=== PATIENT | female | born 1995 | race Caucasian/White ===

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

== ENCOUNTER 2017-04-13 17:29 | Emergency (ER) | payer MEDICAID ==
[~2017-04-13] VITALS: Ht 139.7 cm; Wt 68.9 kg
[~2017-04-13 17:29] MED LIST changes: +FLONASE 50 MCG16 GM
--- NOTE | 2017-04-13 17:49 | Urgent Treatment Center Report ---
History of Present Issue Date/Time Seen by Provider 04/13/171747 Visit Reason Pt arrived:Walked Presenting Problem:PT C/O SORE THROAT AND EAR PAIN Location if Accident: Onset of symptoms date/time:/ or onset unknown for:MEDICAL HX UNKNOWN Have you (or family members/close friends) recently traveled outside the [place]? N If Yes, where/when: Have you had exposure to infectious disease within the past month? TB? Other? Specify: Patient state that she has not been feeling well states that she has been having pain in both ears and sore throat states that she also has been having some sinus pain and pressure states that she feels a little better when she blows her nose but when she does she feels her ears pop ALLERGIES Coded Allergies: No Known Allergies (11/24/16) Home Medications Active Scripts Fluticasone Propionate (Flonase 50 Mcg Nasal [place]) 2 SPRAY NA DAILY #1 BOT Prov: 03/08/17 History Medical History General CAD? No Angina: No [place]: No Hypertension? No Hyperlipidemia? No CHF? No DVT? No PE? No COPD? No Asthma? No Anemia? No GERD? No Gastric ulcers? No GI Bleed? No Hernia? No Thyroid Problems? No Hypothyroidism? No CVA? No Seizures? Yes Diabetes? No Insulin Dependent: No Insulin Pump: No Home FSBS? No Renal Insuffiency? No UTI? No Stones? No BPH? No GB Disease: No Nephritic Syndrome? No Asplenia? No Hepatitis? No Sickle Cell Disease? No Arthritis? No Migraines? No Cataracts? No Glaucoma? No MRSA? No HIV? No TB? No Anxiety? No Depression? No Cancer? No More? No Immunization HX DT/Tetanus 1-4 YRS Flu 2014-FSN Pneumonia Refuses Surgical Hx Previous Surgery?Y CLUB FEET- BILATERAL Social History Smoking Hx Smoker: Never Smoker Tobacco: No Packs/day N/A Alcohol Alcohol: No Review of Systems All Other Systems Reviewed and Negative Constitutional denies chills, denies fever ENT ear pain, nose discharge, nose congestion, throat pain. Respiratory cough, denies shortness of breath, denies wheezing Cardiovascular denies chest pain, denies palpitations Physical Exam Vital Signs Vital Signs Date Time Temp Pulse Resp B/P Pulse O2 O2 Flow FiO2 Ox Delivery Rate 04/13 1747 98.2 103 18 138/82 96 General Appearance normal appearance, WD/WN, no apparent distress Ear, Nose, Throat Tenderness noted over maxillary sinuses and greenish yellow drainage noted, throat mildly red, irritated, bilateral ears no redness, TM dull Respiratory Status Yes: trachea midline, chest symmetrical, non tender chest. No: respiratory distress. Cardiovascular normal exam, regular rate/rhythm, no peripheral edema, no gallop Neurologic alert, rehab therapy manager II-XII nml as tested, normal exam, no motor/sensory deficits, oriented x 3 Medical Decision Making LABS/Meds/Orders Pt receiving controlled substance in ED? No Departure Departure Time of Disposition 1825 Disposition DC Home or Self Care(routine) Clinical Impression Primary Impression: Sinusitis Qualifiers: Sinusitis location: maxillary Chronicity: acute Recurrence: not specified as recurrent Qualified Code: J01.00 - Acute maxillary sinusitis, unspecified Condition STABLE Referrals Abhi LUKE,Dane (Family): 2 Days-Call Office if no improvement in symptoms Patient Instructions DI for Sinusitis, Sinus Headache, Sinusitis (Alternative Therapy) Additional Instructions Start antibiotic. Sinus infections do not get better over night. It may take 2-3 days to notice much improvement so be sure to use conservative measures as discussed for symptoms Flonase 2 spray in each nostril daily to help with nasal congestion, sinus an ear pressure/inflammation Lots of Fluids Sleep elevated Humidifer/vaporizer Discharge Counseling Counseled pt/family regarding diagnosis, medications/RX, home care, follow up needs Prescriptions Current Visit Scripts Amoxicillin/Potassium Clav (Augmentin 875-125 Tablet) 1 EACH PO BID #14 TAB at 1828
[2017-04-13] MEDS ORDERED: AUGMENTIN 875-1 EACH PO (18:28)
[2017-04-13 18:39] VITALS: BP 138/82
--- OUTSIDE RECORDS SUMMARY | 2017-04-20 04:19 | External Medical Summary Rpt ---
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 [facility] INC INC QUANTTATI VE COLONY COUNT URINE CULTURE 06024 [facility] BCT 6 [facility] ISOL&PRSM INC INC PTV ID ISOLATE EA URINE SUSCEPTIB 78715 [facility] FRE[facility]AN LTY STDY 6 [facility] ANTIMICRB INC INC IAL MICRO/AGA R DILUTJ 27654 [facility] QUIÑONES NONSTRESS 6 PHYSICIAN SUSANA TEST S GROUP 97895 [facility] QUIÑONES NONSTRESS 6 PHYSICIAN SUSANA TEST S GROUP 60358 [facility] NONSTRESS 6 [facility] TEST INC INC US PREG 56885 [facility] F[facility] UTERUS 6 [facility] W/DETAIL INC INC PETE 1ST GESTATION [place] PREG 00742 [facility] UTERUS 6 MEDICAL EZEQUIEL AFTER 1ST IMAGING TRIMEST ASS GESTATION GLUC BLD 26485 [facility] GLUC MNTR 5 DIST HLTH DIST HLTH DEV DEPT DEPT CLEARED [facility] MURILL[facility] [place] [address] [facility] QUIÑONES 5 PHYSICIAN SUSANA UTERUS S GROUP LIMITED / FETUSES BLOOD 27527 [facility] TYPING 5 N N SEROLOGIC COMMUNTIY COMMUNTIY RH (D) HOSPITA HOSPITA GONADOTRO 71121 [facility] PIN 5 N N CHORIONIC COMMUNTIY COMMUNTIY HOSPITA HOSPITA QUANTITAT ROSMERY BLOOD 46669 [facility] TYPING 5 N N SEROLOGIC COMMUNTIY COMMUNTIY ABO HOSPITA HOSPITA [place] PREG 62468 [facility] QUIÑONES UTERUS 5 PHYSICIAN SUSANA REAL TIME S GROUP W/IMAGE DCMTN TRANSVAG IAADIADOO 11042 [facility] VIEYRA, 5 [employer] III LEANNE STREPTOCO CCUS GROUP A THERAPEUT 16683 DEA VIEYRA, IC 5 [employer] III LEANNE PROPHYLAC TIC/DX INJECTION SUBQ/IM INJECTION J0696 DEA VIEYRA, 5 [employer] III LEANNE CEFTRIAXO NE SODIUM PER 250 MG IIV4 VACC 13808 [facility] SPLIT 5 DISTRICT DISTRICT VIRUS 0.5 HLTH DEPT HLTH DEPT ML DOS JOSUE JOSUE FOR IM USE SENSORMOT 03702 [facility] HABASH OR XM 5 KEF KEF W/SYSTEMS INTEGRATION ANALYST GLORIA OCULAR DEVIJ W/I&R SPX FITTING 68434 [facility] SPECTACLE 5 KEF KEF S XCPT APHAKIA MONOFOCAL SCRATCH V2760 [facility] RESISTANT 5 KEF KEF COATING PER LENS LENS V2784 [facility] POLYCARBO 5 KEF KEF ZACH OR EQUAL ANY INDEX PER LENS FRAMES V2020 [facility] PURCHASES 5 KEF KEF SPHERE V2100 [facility] SINGLE 5 KEF KEF VISION PLANO +/- 4.00 PER LENS IADNA 25895 [facility] NEISSERIA 5 [facility] INC INC GONORRHOE AE AMPLIFIED PROBE TQ IADNA 50172 [facility]RE[facility] CHLAMYDIA 5 [facility] INC INC TRACHOMAT IS AMPLIFIED PROBE TQ OBSTETRIC 88739 [facility]RE[facility] PANEL 5 [facility] INC INC GONADOTRO 14485 [facility]E FREEMAN PIN 5 [facility] CHORIONIC INC INC QUALITATI VE GONADOTRO 50352 [facility]REEM[facility] PIN 5 [facility] CHORIONIC INC INC QUANTITAT ROSMERY COLLECTIO 05737 [facility] N VENOUS 5 [facility] BLOOD INC INC VENIPUNCT URE INF AGT G0432 [facility]REEMAN AB DETECT 5 [facility] EIA TECH INC INC HIV-1&/HI V-2 SCR URINE 21250 [facility] QUIÑONES 5 PHYSICIAN SUSANA TEST S GROUP VISUAL COLOR CMPRSN METHS UNLISTED 11438 DEPT FOR DEPT FOR SPECIAL [address] [place] [address] SOCIAL SERVICE [facility] SRVS PROCEDURE /REPORT COLLECTIO 80523 [facility] FREEMAN N VENOUS 5 [facility] BLOOD INC INC VENIPUNCT URE GONADOTRO 06494 PETE FREEMAN PIN 5 [facility] CHORIONIC INC INC QUALITATI VE IAADIADOO 37673 [place] 5 [place] STREPTOCO INTERNAL CCUS MED GROUP A ECG 99016 PETE VELÁSQUEZ ROUTINE 5 [facility] W/LEAST P 12 LDS I&R ONLY GROUND A0425 [facility] PER SERVICE SERVICE STATUTE MILE AMB A0427 [facility] SERVICE 5 AMBULANCE AMBULANCE ALS SERVICE SERVICE EMERGENCY TRANSPORT LEVEL 1 MRI BRAIN 90417 PET[facility] FREEMAN BRAIN 4 [facility] STEM W/O INC INC CONTRAST MATERIAL ECHO 31751 APURVA MIXON TTHRC R-T 4 JR EMILY JR EMILY 2D W/WOM-MOD E COMPL SPEC&COLR D ELECTROEN 36843 [facility] FREEMAN CEPHALOGR 4 [facility] AM W/REC INC INC AWAKE&HARMAN WSY COMPREHEN 35598 PETE FREEMAN SIVE 4 [facility] METABOLIC INC INC PANEL BLOOD 74468 PETE FEREMAN COUNT 4 [facility] COMPLETE INC INC AUTO&[place] [address] [facility]REEMAN FREE 4 [facility] [place] [address] [facility] FREEMAN THYROID 4 [facility] STIMULATI INC INC NG HORMONE TSH URNLS DIP 25233 [place] 4 [facility]/TAB [facility] LET REAGENT AUTO MICROSCOP Y URINE 96165 [place] 4 [facility] VISUAL COLOR CMPRSN METHS URINE 76310 PETE FREEMAN 3 [facility] CENTER VISUAL COLOR CMPRSN METHS IADNA 44628 PETE FREEMAN NEISSERIA 3 [facility] CENTER GONORRHOE AE AMPLIFIED PROBE TQ IADNA 10672 PETE FREEMAN CHLAMYDIA 3 [facility] NAMED [facility] C[facility] TRACHOMAT IS AMPLIFIED PROBE TQ INJECTION J1050 PETE FREEMAN 3 [facility] C[facility] OGESTERON E ACETATE 1 MG URINE 58508 PETE FREEMAN 3 [facility] CENTER VISUAL COLOR CMPRSN METHS THERAPEUT 79263 [facility]E FREEMAN IC 3 [facility] PROPHYLAC INC INC TIC/DX INJECTION SUBQ/[place] [address] [facility] FREEMAN STREPTOCO 3 [facility] CCUS INC INC GROUP A IMMUNOASS 20976 [facility]E FREEMAN AY NFCT 3 [facility] AGT ANTB INC INC QUAL/SEMI NADINE 1 STEP BLOOD 17571 [facility] FREEMAN COUNT 3 [facility] COMPLETE INC INC AUTO&AUTO DIFRNTL WBC URINE 47398 [facility] FREEMAN 3 [facility] TEST INC INC VISUAL COLOR CMPRSN METHS URNLS DIP 09390 [facility] FREEMAN 3 [facility] STICK/TAB INC INC LET REAGENT AUTO MICROSCOP Y COMPREHEN 89502 [facility]E FREEMAN SIVE 3 [facility] METABOLIC INC INC PANEL FT INSRT L3010 [facility] REMV MOLD 2 FOR FOR PT MDL ORTHOTIC ORTHOTIC LNGTUDNL & PROSTH & PROSTH ARCH SUPP EA RADIOLOGI [address] EXAMINATI FOR FOR ON FOOT 2 CHILD CHILD VIEWS SUSCEPTIB 02746 [facility]E FREEMAN LTY STDY 1 [facility] ANTIMICRB INC INC IAL MICRO/AGA R DILUTJ CUL BACT 08128 [facility] XCPT 1 [facility] URINE INC INC BLOOD/STO OL AEROBIC ISOL CUL BACT 07339 [facility] AEROBIC 1 [facility] ADDL INC [place] [address] [facility] FREEMAN STREPTOCO 1 [facility] [place] [address] PET[facility] FREEMAN STREPTOCO 1 [facility] CCUS INC INC GROUP A Encounters Encounter Start End Date Code Location Performer Type Date OFFICE 95004 [facility] OUTPATIEN 7 7 [facility] T VISIT 5 INC MINUTES EMERGENCY [address] PETE [address] [facility] VISIT MODERATE SEVERITY EMERGENCY 35817 [facility] PHYSICIAN VISIT S, PLLC HIGH SEVERITY& THREAT [facility] PETE - 7 7 [facility]PATIEN [facility] - 6 [facility] EMERGENCY 19936 PETE [address] [facility] VISIT HIGH/URGE NT SEVERITY EMERGENCY 84715 ALEXANDRA [facility] DEPT 6 6 PHYSICIAN SIDNEY VISIT S, PLLC HIGH [facility]VERITY& [facility] OUTPATIEN 6 6 PHYSICIAN CHRISTOPHER T VISIT 5 S GROUP MINUTES OFFICE 57909 [facility] OUTPATIEN 6 6 [facility] T VISIT [facility] DEPT [facility] DEPT 15 [facility] PETE - 6 6 [facility] INPATIENT INC OFF[facility] 05878 [facility] QUIÑONES OUTPATIEN 6 6 PHYSICIAN SUSANA T VISIT S GROUP 15 MINUTES HOSPITAL PETE - 6 6 [facility] OUTPATIEN [facility] HOSPITAL PETE - 6 6 [facility] PET[facility] - 6 6 [facility] OUTPATIEN [facility] T OFFICE 11738 [facility] QUIÑONES OUTPATIEN 6 6 PHYSICIAN SUSANA T VISIT S GROUP 15 MINUTES HOSPITAL PETE - 6 6 [facility] OUTPATIEN INC T OFFICE 11980 [facility] QUIÑONES OUTPATIEN 6 6 PHYSICIAN SUSANA T VISIT S GROUP 15 MINUTES OFFICE 07398 [facility] QUIÑONES OUTPATIEN 6 6 PHYSICIAN SUSANA T VISIT S GROUP 15 MINUTES HOSPITAL PETE - 6 6 [facility] OUTPATIEN INC T HOSPITAL PETE - 6 6 [facility] OUTPATIEN INC T OFFICE 40660 [facility] QUIÑONES OUTPATIEN 6 6 PHYSICIAN SUSANA T VISIT S GROUP 15 MINUTES OFFICE 69371 [facility] QUIÑONES OUTPATIEN 6 6 PHYSICIAN SUSANA T VISIT S GROUP 15 MINUTES HOSPITAL PETE - 6 6 [facility] OUTPATIEN INC T OFFICE 06327 [facility] VISIT DEPT DEPT 10 [facility]ON MINUTES [facility]OSPITAL PETE - 6 6 [facility] OUTPATIEN INC T OFFICE 98545 [facility] 6 [facility] VISIT DEPT DEPT 10 [facility] MINUTES OFFICE 12136 [facility] OUTPATIEN 6 6 [facility] T VISIT INTERNAL 15 MED MINUTES OFFICE 13194 [facility] QUIÑONES OUTPATIEN 6 6 PHYSICIAN SUSANA T VISIT S GROUP 15 MINUTES HOSPITAL PETE - 6 6 [facility] OUTPATIEN INC T OFFICE 99062 [facility] OUT[facility] 6 [facility] T VISIT DEPT DEPT 10 [facility] MINUTES OFFICE 13836 [facility] DOROTHY BEAVER OUTPATIEN 6 6 PHYSICIAN T VISIT S GROUP 15 MINUTES HOSPITAL PETE - 6 6 [facility] OUTPATIEN INC T OFFICE 07452 [facility] OUTPATIEN 6 6 PHYSICIAN T VISIT S GROUP 15 MINUTES OFFICE 53704 [facility] QUIÑONES OUTPATIEN 6 6 PHYSICIAN SUSANA T VISIT S GROUP 15 MINUTES OFFICE 12591 [facility] OUT[facility] 5 [facility] T VISIT DEPT DEPT 10 [facility] OBREGONO MINUTES OFFICE 51031 [facility] QUIÑONES OUTPATIEN 5 5 PHYSICIAN SUSANA T VISIT S GROUP 15 MINUTES OFFICE 36122 [facility] 5 [facility] T VISIT 5 DEPT DEPT MINUTES [facility] MURILLO OFFICE 33936 [facility] 5 [facility] T VISIT DEPT DEPT 10 [facility] MURILLO MINUTES OFFICE 82698 [facility] OUT[facility] 5 [facility] T VISIT DEPT DEPT 10 CHIDI OBREGONMarnie MINUTES EMERGENCY 37511 [facility] 5 5 N DEPARTMEN COMMUNTIY T VISIT HOSPITA HIGH/URGE [facility] - 5 5 N OUTPATIEN COMMUNTIY T HOSPITA OFFICE 09710 [facility] 5 [facility] T VISIT DEPT DEPT 10 [facility] OB[facility]ONO MINUTES OFFICE 78018 [facility] OUTPATIEN 5 5 [facility] T VISIT DEPT DEPT 10 [facility] OB[facility]ONO MINUTES OFFICE 78191 DEA VIEYRA, OUTPATIEN 5 5 MSOFELI III LEANNE T NEW 30 MINUTES OFFICE 76518 [facility] 5 [facility] T VISIT 5 DEPT DEPT MINUTES [facility] OBREGONO OFFICE 32582 [facility] QUIÑONES OUTPATIEN 5 5 PHYSICIAN SUSANA T VISIT S GROUP 15 MINUTES OFFICE 98014 [facility] HABASH OUTPATIEN 5 5 KEF KEF T NEW 45 MINUTES HOSPITAL PETE - 5 5 [facility] OUTPATIEN INC T OFFICE 67292 [facility] QUIÑONES OUTPATIEN 5 5 PHYSICIAN SUSANA T NEW 45 S GROUP MINUTES [facility] PETE - 5 5 [facility] OUTPATIEN INC T OFFICE 62321 [facility] 5 [facility] T VISIT DEPT DEPT 10 [facility] OB[facility] MINUTES OFFICE 70851 [facility] 5 [facility] T VISIT DEPT DEPT 10 [facility] MURILLO MINUTES OFFICE [address] [facility] [address] [address] OUTPATIEN 5 [facility] 10 MINUTES OFFICE 25198 [facility] T VISIT DEPT DEPT 10 [facility] MUR[facility] MINUTES OFFICE 55037 [facility] 5 [facility] T VISIT DEPT DEPT 10 [facility] MUR[facility] MINUTES OFFICE 25726 [facility] OUT[facility]EN 5 [facility] T VISIT DEPT DEPT 10 [facility] MURILLO [facility] PETE - 5 5 [facility] OUTPATIEN INC T EMERGENCY 95599 ALEXANDRA DALEY 5 5 PHYSICIAN [place] DEPARTMEN S, PLLC T VISIT MODERATE SEVERITY EMERGENCY 78286 [facility]E 5 5 [facility] DEPARTMEN INC T VISIT LOW/MODER SEVERITY OFFICE 31196 [facility] T VISIT DEPT DEPT 10 CH[facility]I PlanetHS MINUTES OFFICE 78278 [facility] 5 [facility] T VISIT DEPT DEPT 10 [facility] MUR[facility] MINUTES OFFICE 31483 [facility] T VISIT DEPT DEPT 10 [facility] MUR[facility] MINUTES HOSPITAL PETE - 5 5 [facility] OUTPATIEN INC T OFFICE 30981 [facility] T VISIT DEPT DEPT 10 [facility] MINUTES OFFICE 37257 [facility] OUT[facility] 5 [facility] T VISIT DEPT DEPT 10 [facility] MUR[facility] MINUTES OFFICE 39612 [facility] OUT[facility] 5 5 [facility] T VISIT INTERNAL 15 MED MINUTES OFFICE 18816 [facility] T VISIT DEPT DEPT 10 [facility] MINUTES OFFICE 18486 [facility] 5 [facility] T VISIT DEPT DEPT 10 [facility] M[facility] MINUTES OFFICE 17067 [facility] OUT[facility] 5 5 [facility] T VISIT INTERNAL 25 MED MINUTES OFFICE 89005 [facility] ALFREDO OUTPATIEN 5 5 PHYSICIAN ZOË T VISIT S GROUP 10 MINUTES OFFICE 62540 [facility] FRYMAN OUTPATIEN 5 5 PHYSICIAN EUG T VISIT S GROUP 15 MINUTES OFFICE 05084 [facility] T VISIT DEPT DEPT 10 [facility] MUR[facility] MINUTES OFFICE 56414 [facility] T VISIT DEPT DEPT 10 [facility] MUR[facility] MINUTES OFFICE 95665 [facility] OUT[facility]EN 4 [facility] T VISIT DEPT DEPT 10 [facility] MUR[facility] MINUTES OFFICE 71188 [facility] OUTPAT[facility]EN 4 [facility] T VISIT DEPT DEPT 10 [facility] MUR[facility] MINUTES OFFICE 55440 [facility] OUTPATIEN 4 4 [facility] T VISIT INTERNAL 25 MED MINUTES OFFICE 71639 [facility] T VISIT DEPT DEPT 10 [facility]UR[facility] MINUTES OFFICE 39122 [facility] 4 [facility] T VISIT DEPT DEPT 10 [facility] MUR[facility] MINUTES OFFICE 20411 [facility] T VISIT DEPT DEPT 10 [facility] MINUTES OFFICE 48707 [facility] T VISIT DEPT DEPT 10 [facility] MURILLO MINUTES OFFICE 26873 [facility] ALISSA OUTPATIEN 4 4 PHYSICIAN SIDNEY T VISIT S GROUP 15 MINUTES OFFICE 68595 [facility] T VISIT DEPT DEPT 10 [facility] M[facility] MINUTES OFFICE 18466 [facility] T VISIT DEPT DEPT 10 [facility] M[facility] MINUTES OFFICE 37272 [facility] T VISIT DEPT DEPT 10 [facility] MINUTES OFFICE 44536 [facility] T VISIT DEPT DEPT 10 [facility] MINUTES OFFICE 47939 [facility] T VISIT DEPT DEPT 10 [facility] MINUTES OFFICE 49292 [facility] T VISIT DEPT DEPT 10 [facility] MUR[facility] MINUTES OFFICE 67145 [facility] OUTPATIEN 4 4 PHYSICIAN T NEW 45 S GROUP MINUTES HOSPITAL PETE - 4 4 [facility] OUTPATIEN INC T OFFICE 18457 DINA DINA OUTPATIEN 4 4 [facility] AN[facility]IA MARIA ANTONIA T VISIT 15 MINUTES HOSPITAL [facility] - 4 4 [facility] OUTPATIEN INC T [facility] PETE - 4 4 [facility] OUTPATIEN INC T OFFICE 64432 DINA DINA OUTPATIEN 4 4 [facility] AN[facility] ANTON[facility] T VISIT 15 MINUTES EMERGENCY 91277 CASIE 4 4 [facility] T VISIT MODERATE SEVERITY HOSPITAL CASIE - 4 4 [facility] T EMERGENCY 63393 DOROTEO DOROTEO 4 4 IMT IMT DEPARTMEN T VISIT HIGH/URGE NT SEVERITY OFFICE 79036 [facility] OUTDEMETRIAEN 3 3 [facility] HIGH T VISIT 5 [facility] MINUTES HEAL HEAL PERIODIC 16317 [facility] FRE[facility] PREVENTIV 3 3 [facility] E MED EST CENTER CENTER PATIENT 12-17YRS OFFICE 60719 [facility] OUTPATIEN 3 3 [facility] T VISIT CENTER CENTER 15 MINUTES Emergency OTIS Krishnamurthy MD (ER) 3 21:22 3 22:08 [facility] EMERGENCY 96670 DYLAN ANNA 3 3 EMERGENCY DEPARTMEN SERVICES T VISIT HIGH/URGE NT SEVERITY EMERGENCY 20173 PETE 3 3 [facility] DEPARTMEN INC T VISIT LOW/MODER SEVERITY HOSPITAL PETE - 3 3 [facility] OUTPATIEN INC T Emergency OTIS Bautista MD (ER) 3 23:25 3 00:38 [facility] EMERGENCY 79291 PETE 3 3 [facility] DEPARTMEN INC T VISIT MODERATE SEVERITY [facility]OSPITAL [facility] - 3 3 [facility] OUTPATIEN INC T OFFICE 40482 [facility] OUTPATIEN 2 2 [facility] 10 MINUTES OFFICE 43507 [place] OUTPATIEN 2 2 MEDICAL T NEW 30 SERV MINUTES [facility] OFF[facility] 60923 [facility] T NEW 10 FOR MINUTES CHILD [facility] OUTPATIEN FOR T CHILD OFFICE 94586 [facility] OUTPATIEN 2 2 [facility] 10 MINUTES OFFICE 53807 [facility] OUTPATIEN 1 1 [facility] 10 MINUTES OFFICE 14858 [facility] 1 1 [facility] 10 MINUTES OFFICE 18265 [facility] 1 1 [facility] 10 MINUTES OFFICE 57376 [facility] OUTPATI[facility] 1 1 [facility] MINUT[facility] OFFICE 54745 Caro Elizondo OUTPATIEN 1 1 LEISA MD T VISIT PSC 15 MINUTES OFFICE 50567 [facility] OBREGONON OUTPATIEN 1 1 [facility] 10 MINUTES OFFICE 37073 [facility] OUTPATIEN 1 1 [facility] 10 MINUTES OFFICE 66154 [facility] OUTPATIEN 1 1 [facility] T OFFICE 16917 [place] [facility] OUT[facility] 1 1 [place] [facility] T NEW 20 INTERNAL MINUTES MEDI OFFICE 83106 [facility] OUTPATIEN 1 1 [facility] 10 MINUTES OFFICE 67158 [facility]EM[facility] OUTPATIEN 1 1 [facility] 10 MINUTES OFFICE 18922 [facility] OUTPATIEN 1 1 [facility] 10 MINUTES EMERGENCY 20296 DYLAN BAUTISTA 1 1 EMERGENC[facility] DEPART[facility] SERVICES T VISIT HIGH/URGE NT SEVERITY EMERGENCY 81853 [facility] 1 1 [facility] T VISIT MODERATE SEVERITY [facility] - [facility] T OFFICE 68715 [facility] OUTPATIEN 1 1 [facility] 10 MINUTES OFFICE 53410 [facility] OUTPATI[facility] 1 1 [facility] 10 MINUTES OFFICE 41593 [facility] OUTPATIEN 1 1 [facility] 15 MINUTES OFFICE 35820 [facility] OUTPATIEN 1 1 [facility] 10 MINUTES OFFICE 71389 [facility] OUTPATIEN 0 0 [facility] 10 MINUTES OFFICE 52764 [facility] OUTPATIEN 0 0 [facility] MINUTES OFFICE 90943 [facility] OUTPATIEN 0 0 [facility] MINUTES OFFICE 31571 [facility] OUTPATIEN 0 0 [facility] MINUTES OFFICE 97639 [facility] OUTPATIEN 0 0 [facility] MINUTES OFFICE 68030 [facility] OUTPATIEN 0 0 [facility] 15 MINUTES OFFICE 68463 [facility]PATIEN 0 0 [facility] MINUTES [facility] - 0 0 [facility] T EMERGENCY 78881 DYLAN BERGMAN 0 0 EMERGENCY III [facility] MODERATE SEVERITY EMERGENCY 81730 [facility] 0 0 [facility] T VISIT LOW/MODER SEVERITY
--- OUTSIDE RECORDS SUMMARY | 2017-04-20 04:19 | External Medical Summary Rpt ---
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 MINUTES OFFICE 31648 [facility] VISIT 5 DEPT DEPT MINUTES [facility] MURILLO OFFICE 47614 [facility] VISIT DEPT DEPT 10 [facility] [place] MINUTES OFFICE 29989 [facility] VISIT DEPT DEPT 10 [facility] OBREGONMarnie MINUTES EMERGENCY 71683 [facility] 5 5 N DEPARTMEN COMMUNTIY T VISIT HOSPITA HIGH/URGE [facility] - 5 5 N OUTPATIEN COMMUNTIY T HOSPITA OFFICE 62480 [facility] VISIT DEPT DEPT 10 [facility] [place] MINUTES OFFICE 33771 [facility] 5 5 [facility] VISIT DEPT DEPT 10 [facility] [place] MINUTES OFFICE 60239 DEA VIEYRA, OUTPATIEN 5 5 MSOFELI III LEANNE T NEW 30 MINUTES OFFICE 54198 [facility] T VISIT 5 DEPT DEPT MINUTES [facility] [place] OFFICE 58813 [facility] QUIÑONES OUTPATIEN 5 5 PHYSICIAN SUSANA T VISIT S GROUP 15 MINUTES OFFICE 24614 HABASH HABASH OUTPATIEN 5 5 KEF KEF T NEW 45 MINUTES HOSPITAL PETE - 5 5 [facility] OUTPATIEN INC T OFFICE 87382 [facility] QUIÑONES OUTPATIEN 5 5 PHYSICIAN SUSANA T NEW 45 S GROUP MINUTES [facility] 5 [facility] INC T OFFICE 63424 [facility] VISIT DEPT DEPT 10 [facility] [place] MINUTES OFFICE 97132 [facility] VISIT DEPT DEPT 10 [facility] MUR[place] MINUTES OFFICE 8[address]56 [facility]PATIEN 5 [facility] 10 MINUTES OFFICE 69264 [facility] VISIT DEPT DEPT 10 [facility] [place] MINUTES OFFICE 74114 [facility] VISIT DEPT DEPT 10 [facility] [place] MINUTES OFFICE 28119 [facility] VISIT DEPT DEPT 10 [facility] MUR[facility] PETE - 5 5 [facility] OUTPATIEN INC T EMERGENCY 34184 ALEXANDRA DALEY 5 5 PHYSICIAN [place] DEPARTMEN S, PLLC T VISIT MODERATE SEVERITY EMERGENCY 63829 [facility]E 5 5 [facility] DEPARTMEN INC T VISIT LOW/MODER SEVERITY OFFICE 19718 [facility] VISIT DEPT DEPT 10 CHIDI TicTacTi MINUTES OFFICE 89847 [facility] VISIT DEPT DEPT 10 [facility] [place] MINUTES OFFICE 23996 [facility] VIS[facility] DEPT DEPT 10 [facility] MINUTES HOSPITAL PETE - 5 5 [facility] OUTPATIEN INC T OFFICE 55578 [facility] VISIT DEPT DEPT 10 [facility] [place] MINUTES OFFICE 21153 [facility] VISIT DEPT DEPT 10 [facility] M[place] MINUTES OFFICE 25148 [facility] 5 5 [facility] T VISIT INTERNAL 15 MED MINUTES OFFICE 02819 [facility] VISIT DEPT DEPT 10 [facility] [place] MINUTES OFFICE 02311 [facility] VISIT DEPT DEPT 10 [facility] M[place] MINUTES OFFICE 53865 [facility] OUT[facility] 5 5 [facility] T VISIT INTERNAL 25 MED MINUTES OFFICE 12212 [facility] ALFREDO OUTPATIEN 5 5 PHYSICIAN ZOË T VISIT S GROUP 10 MINUTES OFFICE 99488 [facility] FRYMAN OUTPATIEN 5 5 PHYSICIAN EUG T VISIT S GROUP 15 MINUTES OFFICE 96511 [facility] VISIT DEPT DEPT 10 [facility] [place] MINUTES OFFICE 96833 [facility] VISIT DEPT DEPT 10 [facility] [place] MINUTES OFFICE 14928 [facility] VISIT DEPT DEPT 10 [facility] [place] MINUTES OFFICE 67217 [facility] VISIT DEPT DEPT 10 [facility] [place] MINUTES OFFICE 68942 [facility] OUTPATIEN 4 4 [facility] T VISIT INTERNAL 25 MED MINUTES OFFICE 34492 [facility] VISIT DEPT DEPT 10 [facility] [place] MINUTES OFFICE 34659 [facility] VISIT DEPT DEPT 10 [facility] [place] MINUTES OFFICE 56433 [facility] VISIT DEPT DEPT 10 [facility] [place] MINUTES OFFICE 74596 [facility] VISIT DEPT DEPT 10 [facility] [place] MINUTES OFFICE 57145 [facility] ALISSA OUTPATIEN 4 4 PHYSICIAN SIDNEY T VISIT S GROUP 15 MINUTES OFFICE 69602 [facility] VISIT DEPT DEPT 10 [facility] [place] MINUTES OFFICE 89414 [facility] VISIT DEPT DEPT 10 [facility] [place] MINUTES OFFICE 57124 [facility] VISIT DEPT DEPT 10 [facility] [place] MINUTES OFFICE 90982 [facility] VISIT DEPT DEPT 10 [facility] [place] MINUTES OFFICE 37696 [facility] VISIT DEPT DEPT 10 [facility] [place] MINUTES OFFICE 98461 [facility] VISIT DEPT DEPT 10 [facility] [place] MINUTES OFFICE 43670 [facility] OUTPATIEN 4 4 PHYSICIAN T NEW 45 S GROUP MINUTES HOSPITAL PETE - 4 4 [facility] OUTPATIEN INC T OFFICE 20575 DINA DINA OUTPATIEN 4 4 [facility] AN[facility] T VISIT 15 MINUTES HOSPITAL PETE - 4 4 [facility]PAT[facility]EN INC T [facility] PETE - 4 4 [facility] OUTPATIEN INC T OFFICE 69437 DINA DINA OUTPATIEN 4 4 [facility] AN[facility] T VISIT 15 MINUTES EMERGENCY 56635 CASIE 4 4 [facility] T VISIT MODERATE SEVERITY HOSPITAL CASIE - 4 4 [facility] T EMERGENCY 50253 DOROTEO DOROTEO 4 4 IMT IMT DEPARTMEN T VISIT HIGH/URGE NT SEVERITY OFFICE 92842 PETE FREEMAN OUTDEMETRIAEN 3 3 [facility] T VISIT 5 [facility] MIN[facility]ES HEAL HEAL PERIODIC 72050 PETE FREEMAN PREVENTIV 3 3 [facility] HEALTH E MED EST CENTER CENTER PATIENT 12-17YRS OFFICE 76065 PETE FREEMAN OUTPATIEN 3 3 [facility] HEALTH T VISIT CENTER CENTER 15 MINUTES Emergency OTIS Krishnamurthy MD (ER) 3 21:22 3 22:08 [facility] EMERGENCY 90547 DYLAN ANNA 3 3 EMERGENCY DEPARTMEN SERVICES T VISIT HIGH/URGE NT SEVERITY EMERGENCY 99697 PETE 3 3 [facility] DEPARTMEN INC T VISIT LOW/MODER SEVERITY HOSPITAL PETE - 3 3 [facility] OUTPATIEN INC T Emergency OTIS Bautista MD (ER) 3 23:25 3 00:38 [facility] EMERGENCY 72366 PETE 3 3 [facility] DEPARTMEN INC T VISIT MODERATE SEVERITY HOSPITAL [facility]E - 3 3 [facility] OUTPATIEN INC T OFFICE 40627 PETE FREEMAN OUTPATIEN 2 2 [facility] 10 [facility]UTES OFFICE 53583 [place] OUTPATIEN 2 2 [facility] T NEW 30 SERV MINUTES [facility] OFF[facility] 41555 [facility] T NEW 10 FOR MINUTES CHILD [facility] - [facility] 2 [facility] OUTPATIEN FOR T CHILD OFFICE 22239 PETE FREEMAN OUTPATIEN 2 2 [facility] 10 MINUTES OFFICE 48127 [facility] FREEMAN OUTPATIEN 1 1 [facility] 10 MINUTES OFFICE 90481 [facility]E FREEMAN OUTPATIEN 1 1 [facility] 10 MINUTES OFFICE 24573 [facility]E FREEMAN OUTPATIEN 1 1 [facility] 10 MINUTES OFFICE 16916 [facility]E FREEMAN OUTPATIEN 1 1 [facility] MINUTES OFFICE 33080 [facility] Elizondo OUTPATIEN 1 1 LEISA MD T VISIT PSC 15 MINUTES OFFICE 18139 [facility] [place] OUTPATIEN 1 1 [facility] 10 MINUTES OFFICE 14579 PETE [facility]E OUTPATIEN 1 1 [facility] 10 MINUTES OFFICE 44235 PETE [facility] OUTPATIEN 1 1 [facility] 10 MINUTES [facility]OSP[facility] PETE - 1 1 [facility] OUTPATIEN INC T OFFICE 45079 [place] [facility] OUTPATIEN 1 1 [facility] MARIA ANTONIA T NEW 20 INTERNAL MINUTES MEDI OFFICE 91168 PETE [facility]E OUTPATIEN 1 1 [facility] 10 MINUTES OFFICE 37453 PETEART FREEMAN OUTPATIEN 1 1 [facility] 10 MINUTES OFFICE 02027 PETE PETE OUTPATIEN 1 1 [facility] 10 MINUTES EMERGENCY 94151 DYLAN BAUTISTA 1 1 EMERGENCY [facility] DEPARTMEN SERVICES T VISIT HIGH/URGE NT SEVERITY EMERGENCY 25077 [facility] 1 1 [facility] DEPARTMEN INC T VISIT MODERATE SEVERITY [facility]OSPITAL [facility]E - 1 1 [facility] OUTPATIEN INC T OFFICE 09921 PETE [facility] OUTPATIEN 1 1 [facility] 10 MINUTES OFFICE 26277 [facility]E FREEMAN OUTPATIEN 1 1 [facility] 10 MINUTES OFFICE 18641 PETE FREEMAN OUTPATIEN 1 1 [facility] 15 MINUTES OFFICE 56232 PETE FREEMAN OUTPATIEN 1 1 [facility] 10 MINUTES OFFICE 99979 PETE FREEMAN OUTPATIEN 0 0 [facility] 10 MINUTES OFFICE 02930 PETE FREEMAN OUTPATIEN 0 0 [facility]IS[facility] 5 [facility] MINUTES OFFICE 06555 PETE FREEMAN OUTPATIEN 0 0 [facility]IS[facility] 5 [facility] MINUTES OFFICE 74377 PETE FREEMAN OUTPATIEN 0 0 [facility]ISIT 5 [facility] MINUTES OFFICE 32335 PETE FREEMAN OUTPATIEN 0 0 [facility]ISIT 5 [facility] MINUTES OFFICE 90477 PETE FREEMAN OUTPATIEN 0 0 [facility] 15 MINUTES OFFICE 98726 PETE FREEMAN OUTPATIEN 0 0 [facility] 5 [facility] MINUTES [facility] OUTPATIEN INC T EMERGENCY 68601 DYLAN BERGMAN 0 0 [facility] VISIT MODERATE SEVERITY EMERGENCY 15517 [facility]E 0 0 [facility] DEPARTMEN INC T VISIT LOW/MODER SEVERITY
--- OUTSIDE RECORDS SUMMARY | 2017-04-20 04:23 | External Medical Summary Rpt ---
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 MURILLO MINUTES OFFICE 56308 [facility] T VISIT DEPT DEPT 10 CHIDI [place]ON MINUTES EMERGENCY 71741 [facility] 5 5 [facility] DEPARTMEN EMERGENCY T VISIT PHYS HIGH/URGE NT SEVERITY [facility] N OUTPATIEN COMMUNTIY T HOSPITA OFFICE 72525 [facility] T VISIT DEPT DEPT 10 CHIDI MURILLO MINUTES OFFICE 75798 [facility] VIEYRA, OUTPATIEN 5 5 [employer] III LEANNE T NEW 30 MINUTES OFFICE 08784 [facility] T VISIT DEPT DEPT 10 CHIDI MURILLO MINUTES OFFICE 81147 [facility] T VISIT 5 DEPT DEPT MINUTES [facility] MURILLO OFFICE 22303 [facility] OUTPATIEN 5 5 PHYSICIAN SUSANA T VISIT S GROUP 15 MINUTES OFFICE 36134 [facility] OUTPATIEN 5 5 KEF KEF T [facility] 45 [facility] - 5 5 [facility] OUTPATIEN INC T OFFICE 27295 [facility] OUTPAT[facility]EN 5 5 PHYSICIAN SUSANA T NEW 45 S GROUP [facility] PET[facility] - 5 5 [facility] OUTPATIEN INC T OFFICE 39515 [facility] T VISIT DEPT DEPT 10 CHIDI MURILLO MINUTES OFFICE 96642 [facility] T VISIT DEPT DEPT 10 CHIDI MURILLO MINUTES OFFICE 82371 [facility] OUTPATIEN 5 5 [facility] T VISIT [facility] 10 MINUTES OFFICE 15834 [facility] T VISIT DEPT DEPT 10 CHIDI MURILLO MINUTES OFFICE 78231 [facility] T VISIT DEPT DEPT 10 CHIDI MURILLO MINUTES OFFICE 78242 [facility] VISIT DEPT DEPT 10 CHIDI OBREGONO MINUTES HOSPITAL PETE - 5 5 [facility] OUTPATIEN INC T EMERGENCY 34086 PETE 5 5 [facility] DEPARTMEN INC T VISIT LOW/MODER SEVERITY EMERGENCY 25100 ALEXANDRA DALEY 5 5 PHYSICIAN [place] [facility] T VISIT MODERATE SEVERITY OFFICE 28319 [facility] T VISIT DEPT DEPT 10 CHIDI MURILLO MINUTES OFFICE 56557 [facility] VISIT DEPT DEPT 10 [facility] MUR[place] MINUTES OFFICE 23738 [facility] T VISIT DEPT DEPT 10 [facility]ID[facility] MUR[facility] PETE - 5 5 [facility] OUTPATIEN INC T OFFICE 07867 [facility] T VISIT DEPT DEPT 10 CHIDI MURILL[place] MINUTES OFFICE 43763 [facility] T VISIT DEPT DEPT 10 CH[facility] MURILLO MINUTES OFFICE 47238 [facility] 5 5 [facility] T VISIT INTERNAL 15 MED MINUTES OFFICE 74930 [facility] T VISIT DEPT DEPT 10 [facility] MUR[place] MINUTES OFFICE 09606 [facility] T VISIT DEPT DEPT 10 [facility] MURILL[place] MINUTES OFFICE 55139 [facility] 5 5 [facility] T VISIT INTERNAL 25 MED MINUTES OFFICE 65766 [facility] ALFREDO OUTPATIEN 5 5 PHYSICIAN ZOË T VISIT S GROUP 10 MINUTES OFFICE 13274 [facility] FRYMAN OUTPATIEN 5 5 PHYSICIAN EUG T VISIT S GROUP 15 MINUTES OFFICE 45316 [facility] T VISIT DEPT DEPT 10 [facility] MURILLO MINUTES OFFICE 31548 [facility] T VISIT DEPT DEPT 10 [facility] MURILL[place] MINUTES OFFICE 49089 [facility] T VISIT DEPT DEPT 10 [facility] MURILLO MINUTES OFFICE 57539 [facility] T VISIT DEPT DEPT 10 [facility] MURILLO MINUTES OFFICE 09681 [facility] OUTPAT[facility] 4 4 [facility] T VISIT INTERNAL 25 MED MINUTES OFFICE 88678 [facility] VISIT DEPT DEPT 10 CH[facility] MURILLO MINUTES OFFICE 88823 [facility] VISIT DEPT DEPT 10 [facility] MURILLO MINUTES OFFICE 61931 [facility] VISIT DEPT DEPT 10 [facility] [place]UR[place] MINUTES OFFICE 79496 [facility] VISIT DEPT DEPT 10 [facility] [place] MINUTES OFFICE 69598 [facility] ALISSA OUTPATIEN 4 4 PHYSICIAN SIDNEY T VISIT S GROUP MINUTES OFFICE 14261 [facility] VISIT DEPT DEPT 10 CHIDI NetradaMarnie MINUTES OFFICE 66198 [facility] VISIT DEPT DEPT 10 [facility] MURILL[place] MINUTES OFFICE 45650 [facility] VISIT DEPT DEPT 10 [facility] MURILLO MINUTES OFFICE 22327 [facility] VISIT DEPT DEPT 10 CH[facility] MURILLO MINUTES OFFICE 37474 [facility] VISIT DEPT DEPT 10 [facility] MURILLO MINUTES OFFICE 50603 [facility] VISIT DEPT DEPT 10 CHIDI MURILLO MINUTES OFFICE 40109 [facility] OUTPATIEN 4 4 PHYSICIAN T NEW 45 S GROUP [facility] PETE - 4 4 [facility] OUTPATIEN INC T OFFICE 78298 DINA DINA OUTPATIEN 4 4 MARIA ANTONIA MARIA ANTONIA T VISIT 15 MINUTES HOSPITAL PETE - 4 4 [facility] OUTPATIEN INC T OFFICE 09053 DINA DINA OUTPATIEN 4 4 MARIA ANTONIA MARIA ANTONIA T VISIT 15 MINUTES HOSPITAL PETE - 4 4 [facility] OUTPATIEN INC T EMERGENCY 25161 DOROTEO DOROTEO 4 4 [facility] T VISIT HIGH/URGE NT SEVERITY HOSPITAL NENAON - 4 4 [facility] 60438 [facility] 4 4 [facility] T VISIT MODERATE SEVERITY OFFICE 77906 PETE FREEMAN OUTPATIEN 3 3 [facility] T VISIT 5 [facility] MIN[facility] HEAL HEAL PERIODIC 21347 PETE FREEMAN PREVENTIV 3 3 [facility] E MED EST CENTER CENTER PATIENT 12YR OFFICE 32285 PETE FREEMAN OUTPATIEN 3 3 [facility] HE[facility] T VISIT CENTER CENTER 15 MINUTES EMERGENCY 87896 PETE 3 3 [facility] DEPARTMEN INC T VISIT LOW/MODER SEVERITY HOSPITAL PETE - 3 3 [facility] OUTPATIEN INC T EMERGENCY 78704 DYLAN ANNA 3 3 EMERGENCY DEPARTMEN SERVICES T VISIT HIGH/URGE NT SEVERITY EMERGENCY 80567 ALISSA MAXWELL 3 3 S[facility]NEY S[facility]NEY DEPARTMEN T VISIT MODERATE SEVERITY [facility]E - 3 3 [facility] OUTPATIEN INC T OFFICE 98644 PETE [facility]E OUTPATIEN 2 2 [facility] - 2 2 HOSPITALS OUTPATIEN FOR T CHILD OFFICE 27815 [place] [facility] T NEW 30 SERV MINUTES [facility]ATIO OFFICE 09173 [facility] OUTPATIEN 2 2 HOSPITALS T NEW 10 FOR MINUTES CHILD OFFICE 93716 PETE PETE OUTPATIEN 2 2 [facility] 10 MINUTES OFFICE 00906 PETE FREEMAN OUTPATIEN 1 1 [facility] 10 MINUTES OFFICE 94121 [facility] FREEMAN OUTPATIEN 1 1 [facility] 10 MINUTES OFFICE 20987 [facility] FREEMAN OUTPATIEN 1 1 [facility] 10 MINUTES OFFICE 63335 PETE FREEMAN OUTPATIEN 1 1 [facility]IS[facility] 5 [facility] MINUTES OFFICE 92803 [facility] OUTPATIEN 1 1 LEISA [facility] T VISIT PSC 15 MINUTES OFFICE 91655 PETE FREEMAN OUTPATIEN 1 1 [facility] 10 MINUTES OFFICE 05350 PETE FREEMAN OUTPATIEN 1 1 [facility] 10 MINUTES OFFICE 35204 [facility] [place] OUTPATIEN 1 1 [facility] 10 [facility]ES [facility] - 1 1 [facility] OUTPATIEN INC T OFFICE 96458 [facility] OUT[facility] 1 1 [facility] T NEW 20 INTERNAL MINUTES MEDI OFFICE 16707 PETE FREEMAN OUTPATIEN 1 1 [facility] 10 MINUTES OFFICE 63332 PETE PETE OUTPATIEN 1 1 [facility] 10 MINUTES OFFICE 45019 PETE FREEMAN OUTPATIEN 1 1 [facility] 10 MINUTES EMERGENCY 79646 DYLAN MAXWELL 1 1 EMERGENCY SIDNEY DEPARTMEN SERVICES T VISIT HIGH/URGE NT SEVERITY EMERGENCY 66496 [facility] 1 1 [facility] DEPARTMEN INC T VISIT MODERATE SEVERITY [facility]PITAL [facility] - 1 1 [facility] OUTPATIEN INC T OFFICE 78774 PETE FREEMAN OUTPATIEN 1 1 [facility] 10 MINUTES OFFICE 72540 [facility] FREEMAN OUTPATIEN 1 1 [facility] 10 MINUTES OFFICE 33102 PETE FREEMAN OUTPATIEN 1 1 [facility] 15 MINUTES OFFICE 09139 PETE FREEMAN OUTPATIEN 1 1 [facility] 10 MINUTES OFFICE 15881 PETE FREEMAN OUTPATIEN 0 0 [facility] 10 MINUTES OFFICE 96392 PETE FREEMAN OUTPATIEN 0 0 [facility] T VISIT 5 [facility] MINUTES OFFICE 78343 PETE FREEMAN OUTPATIEN 0 0 [facility] T VISIT 5 [facility] MINUTES OFFICE 57712 PETE FREEMAN OUTPATIEN 0 0 [facility] T VISIT 5 [facility] MINUTES OFFICE 86896 PETE FREEMAN OUTPATIEN 0 0 [facility] T VISIT 5 [facility] MINUTES OFFICE 65546 PETE PETE OUTPATIEN 0 0 [facility] 15 MINUTES OFFICE 30560 PETEART FREEMAN OUTPATIEN 0 0 [facility]ISIT 5 [facility] MINUTES EMERGENCY 06538 [facility]E 0 0 [facility] DEPARTMEN INC T VISIT LOW/MODER SEVERITY EMERGENCY 01993 DYLAN BERGMAN 0 0 EMERGENCY III EMILY DEPARTMEN SERVICES T VISIT MODERATE SEVERITY HOSPITAL PETE - 0 0 [facility] OUTPATIEN INC T
--- OUTSIDE RECORDS SUMMARY | 2017-04-20 04:23 | External Medical Summary Rpt ---
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 [facility] VISIT DEPT DEPT 10 CHIDI MURILLO MINUTES OFFICE 75203 [facility] VISIT DEPT DEPT 10 CHIDI MURILLO MINUTES OFFICE 64678 [facility] VISIT DEPT DEPT 10 CHIDI OBREGONO MINUTES HOSPITAL PETE - 5 5 [facility] OUTPATIEN INC T EMERGENCY 78604 [facility]E 5 5 [facility] DEPARTMEN INC T VISIT LOW/MODER SEVERITY EMERGENCY 52609 ALEXANDRA DALEY 5 5 PHYSICIAN [place] [facility] T VISIT MODERATE SEVERITY OFFICE 28789 [facility] VISIT DEPT DEPT 10 CHIDI MURILLO MINUTES OFFICE 89127 [facility] VISIT DEPT DEPT 10 CHIDI MURILLO MINUTES OFFICE 72109 [facility] VISIT DEPT [facility]PT 10 CHIDI MURILLO [facility] PETE - 5 5 [facility] OUTPATIEN INC T OFFICE 71604 [facility] T VISIT DEPT DEPT 10 CHIDI MURILLO MINUTES OFFICE 72624 [facility] VISIT DEPT DEPT 10 CHIDI MURILLO MINUTES OFFICE 57745 [facility] 5 5 [facility] T VISIT INTERNAL 15 MED MINUTES OFFICE 25151 [facility] T VISIT DEPT DEPT 10 CHIDI MURILLO MINUTES OFFICE 07494 [facility] VISIT DEPT DEPT 10 CHIDI MURILLO MINUTES OFFICE 81215 [facility] 5 5 [facility] T VISIT INTERNAL 25 MED MINUTES OFFICE 55092 [facility] ALFREDO OUTPATIEN 5 5 PHYSICIAN ZOË T VISIT S GROUP 10 MINUTES OFFICE 14131 [facility] FRYMAN OUTPATIEN 5 5 PHYSICIAN EUG T VISIT S GROUP 15 MINUTES OFFICE 21579 [facility] VISIT DEPT DEPT 10 CHIDI MURILLO MINUTES OFFICE 10070 [facility] VISIT DEPT DEPT 10 CHIDI MURILLO MINUTES OFFICE 92095 [facility] VISIT DEPT DEPT 10 CHIDI MURILLO MINUTES OFFICE 30300 [facility] VISIT DEPT DEPT 10 CHIDI MURILLO MINUTES OFFICE 06890 [facility] OUT[facility] 4 4 [facility] T VISIT INTERNAL 25 MED MINUTES OFFICE 28985 [facility] VISIT DEPT DEPT 10 CHIDI MURILLO MINUTES OFFICE 94153 [facility] VISIT DEPT DEPT 10 CHIDI MURILLO MINUTES OFFICE 02606 [facility] VISIT DEPT DEPT 10 CHIDI MURILLO MINUTES OFFICE 84626 [facility] VISIT DEPT DEPT 10 CHIDI MURILLO MINUTES OFFICE 71614 [facility] ALISSA OUTPATIEN 4 4 PHYSICIAN SIDNEY T VISIT S GROUP MINUTES OFFICE 60274 [facility] VISIT DEPT DEPT 10 CHIDI MarketLiveMarnie MINUTES OFFICE 57889 [facility] VISIT DEPT DEPT 10 CHIDI MURILLO MINUTES OFFICE 10752 [facility] VISIT DEPT DEPT 10 CHIDI MURILLO MINUTES OFFICE 03448 [facility] VISIT DEPT DEPT 10 CHIDI MURILLO MINUTES OFFICE 76222 [facility] VISIT DEPT DEPT 10 CHIDI MURILLO MINUTES OFFICE 20794 [facility] VISIT DEPT DEPT 10 CHIDI MURILLO MINUTES OFFICE 69724 [facility] OUTPATIEN 4 4 PHYSICIAN T NEW 45 S GROUP [facility] PETE - 4 4 [facility] OUTPATIEN INC T OFFICE 81027 DINA DINA OUTPATIEN 4 4 MARIA ANTONIA MARIA ANTONIA T VISIT 15 MINUTES HOSPITAL [facility] - 4 4 [facility] OUTPATIEN INC T OFFICE 02922 DINA DINA OUTPATIEN 4 4 MARIA ANTONIA MARIA ANTONIA T VISIT 15 MINUTES HOSPITAL [facility] - 4 4 [facility] OUTPATIEN INC T EMERGENCY 97973 DOROTEO DOROTEO 4 4 [facility] T VISIT HIGH/URGE NT SEVERITY [facility] - 4 4 [facility] T EMERGENCY 24605 [facility] 4 4 [facility] T VISIT MODERATE SEVERITY OFFICE 56425 PETE FREEMAN OUTPATIEN 3 3 [facility] VISIT 5 [facility] MINUT[facility] HEAL HEAL PERIODIC 63809 PETE FREEMAN PREVENTIV 3 3 [facility] C[facility] PATIENT 12YR OFFICE 05279 PETE FREEMAN OUTPATIEN 3 3 [facility] CENTER 15 MINUTES EMERGENCY 59206 PETE 3 3 [facility] DEPARTMEN INC T VISIT LOW/MODER SEVERITY [facility]OSPITAL [facility] - 3 3 [facility] OUTPATIEN INC T EMERGENCY 21365 DYLAN ANNA 3 3 EMERGENCY DEPARTMEN SERVICES T VISIT HIGH/URGE NT SEVERITY EMERGENCY 44166 ALISSA MAXWELL 3 3 [facility] S[facility] DEPARTMEN T VISIT MODERATE SEVERITY [facility] - 3 3 [facility] OUTPATIEN INC T OFFICE 22372 PETE [facility] OUTPATIEN 2 2 [facility] 10 [facility]ES [facility] - 2 2 HOSPITALS OUTPATIEN FOR T CHILD OFFICE 33972 [facility] T NEW 30 SERV MINUTES FOUNDATIO OFFICE 12498 [facility] OUTPATIEN 2 2 HOSPITALS T NEW 10 FOR MINUTES CHILD OFFICE 52837 PETE PETE OUTPATIEN 2 2 [facility] 10 MINUTES OFFICE 72917 [facility] FREEMAN OUTPATIEN 1 1 [facility] 10 MINUTES OFFICE 26489 [facility] FREEMAN OUTPATIEN 1 1 [facility] 10 MINUTES OFFICE 10063 [facility]E FREEMAN OUTPATIEN 1 1 [facility] 10 MINUTES OFFICE 38504 [facility] FREEMAN OUTPATIEN 1 1 [facility]ISIT 5 [facility] MINUTES OFFICE 02849 [facility] OUTPATIEN 1 1 [facility] T VISIT PSC 15 MINUTES OFFICE 40859 PETE FREEMAN OUTPATIEN 1 1 [facility] 10 MINUTES OFFICE 76029 PETE FREEMAN OUTPATIEN 1 1 [facility] 10 MINUTES OFFICE 54350 [facility] [place] OUTPATIEN 1 1 [facility] 10 MINUTES [facility]OSP[facility] - 1 1 [facility] OUTPATIEN INC T OFFICE 11836 [facility] 1 1 [facility] T NEW 20 INTERNAL MINUTES MEDI OFFICE 78524 PETE FREEMAN OUTPATIEN 1 1 [facility] 10 MINUTES OFFICE 36200 PETE PETE OUTPATIEN 1 1 [facility] 10 MINUTES OFFICE 57960 [facility] FREEMAN OUTPATIEN 1 1 [facility] 10 MINUTES EMERGENCY 97523 DYLAN MAXWELL 1 1 EMERGENCY [facility] DEPARTMEN SERVICES T VISIT HIGH/URGE NT SEVERITY EMERGENCY 83318 [facility] 1 1 [facility] DEPARTMEN INC T VISIT MODERATE SEVERITY [facility]OSP[facility] - 1 1 [facility] OUTPATIEN INC T OFFICE 21867 [facility] FRE[facility]AN OUTPATIEN 1 1 [facility] 10 MINUTES OFFICE 83019 [facility] FRE[facility]AN OUTPATIEN 1 1 [facility] 10 MINUTES OFFICE 33863 [facility] FREEMAN OUTPATIEN 1 1 [facility] 15 MINUTES OFFICE 15473 [facility]E FREEMAN OUTPATIEN 1 1 [facility] 10 MINUTES OFFICE 12337 PETE FREEMAN OUTPATIEN 0 0 [facility] 10 MINUTES OFFICE 78375 PETE FREEMAN OUTPATIEN 0 0 [facility] T VISIT 5 [facility] MINUTES OFFICE 82524 PETE FREEMAN OUTPATIEN 0 0 [facility] T VISIT 5 [facility] MINUTES OFFICE 18935 [facility] FREEMAN OUTPATIEN 0 0 [facility] T VISIT 5 [facility] MINUTES OFFICE 16720 [facility] FREEMAN OUTPATIEN 0 0 [facility] T VISIT 5 [facility] MINUTES OFFICE 04939 PETE PETE OUTPATIEN 0 0 [facility] 15 MINUTES OFFICE 04125 PETEART FREEMAN OUTPATIEN 0 0 [facility] T VISIT 5 [facility] MINUTES EMERGENCY 99926 [facility]E 0 0 [facility] DEPARTMEN INC T VISIT LOW/MODER SEVERITY EMERGENCY 42409 DYLAN BERGMAN 0 0 EMERGENCY III EMILY DEPARTMEN SERVICES T VISIT MODERATE SEVERITY HOSPITAL [facility]E - 0 0 [facility] OUTPATIEN INC T
--- OUTSIDE RECORDS SUMMARY | 2017-04-20 04:24 | External Medical Summary Rpt ---
Demographics Preferred Language Tajik Marital Status Unknown Bahai Affiliation Unknown Race Unknown Ethnic Group Unknown Author Author , Organization [employer] Address Unknown Phone Unavailable Purpose Continuity of Care Document - through 2016 Immunization No patient found.
--- OUTSIDE RECORDS SUMMARY | 2017-04-20 04:24 | External Medical Summary Rpt ---
Demographics Preferred Language Italian Marital Status Unknown Alevism Affiliation Unknown Race Unknown Ethnic Group Unknown Author Author , Organization [employer] Address Unknown Phone Unavailable Purpose Continuity of Care Document - through 2016 Immunization No patient found.
== END 2017-04-13 18:40 | disposition home or self-care (01) ==
LOC: UTC 17:29
DX: J01.00 Acute maxillary sinusitis, unspecified (principal)

== ENCOUNTER 2017-07-31 21:06 | Emergency (ER) | payer MEDICAID ==
[~2017-07-31] VITALS: Ht 139.7 cm; Wt 70.3 kg
[~2017-07-31 21:06] MED LIST changes: +ADULT LOW DOSE81 MG PO; +AUGMENTIN 875-1 EACH PO; +PROVENTIL0.09 MG/A1 IH
--- NOTE | 2017-07-31 21:33 | Emergency Room Report ---
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 Onset of symptoms date/time:07/31/[birth year]08/08/1928 or onset unknown for: Treatment Prior to Arrival: [employer] Provided by: Sepsis Risk Assessment: Temp: 98.8 B/P: 100/56 MAP: 70 Pulse: 85 Resp: 18 Recent fever? N Clinical Suspician of Infection? N Mental Status: 1 - Regular (Normal Baseline) Sepsis Risk:Low Sepsis Risk Have you (or family members/close friends) recently traveled outside the [place]? N If Yes, where/when: Have you had exposure to infectious disease within the past month? N TB? Other? Specify: Source patient, RN notes reviewed, family, old records Exam Limitations no limitations Comment chest pain with component of pleuritic pain with no fever or hemoptysis which started tonight Cardiac Chest Pain Chest pain indicative of cardiac No Timing/Duration this evening Severity moderate ALLERGIES Coded Allergies: No Known Allergies (11/24/16) Home Medications Reported Medications No Known Home Medications History Medical History General CAD? No Angina: No NM: No Hypertension? No Hyperlipidemia? No CHF? No DVT? No PE? No COPD? No Asthma? No Anemia? No GERD? No Gastric ulcers? No GI Bleed? No Hernia? No Thyroid Problems? No Hypothyroidism? No CVA? No Seizures? Yes Diabetes? No Insulin Dependent: No Insulin Pump: No Home FSBS? No Renal Insuffiency? No End Stage Renal Disease? No UTI? No Stones? No BPH? No GB Disease: No Nephritic Syndrome? No Asplenia? No Hepatitis? No Sickle Cell Disease? No Arthritis? No Migraines? No Cataracts? No Glaucoma? No MRSA? No HIV? No TB? No Anxiety? No Depression? No Cancer? No More? 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 Respiratory cough, denies shortness of breath, denies wheezing Cardiovascular see HPI, chest pain, denies palpitations, denies syncope Gastrointestinal denies abdominal pain, denies diarrhea, denies vomiting Genitourinary denies: dysuria, frequency, hesitancy, hematuria. Musculoskeletal denies back pain, denies joint pain, denies neck pain Skin denies rash Psychiatric/Neurological denies headache, denies seizure Physical Exam Vital Signs Vital Signs Date Time Temp Pulse Resp B/P Pulse O2 O2 Flow FiO2 Ox Delivery Rate 07/31 2108 98.8 85 18 100/56 98 - WBC >12,000 or <4,000 or 10% bands? 2 or more SIRS Criteria Met? B/P:100/56 MAP:70 Creatinine >2.0? UA output<0.5ml/kg/hr for 2 hrs? Platelet count >100,000? Lactate >2.0mmol/1? INR >1.2 or PTT > than 60 sec? Evidence of Organ Dysfunction? Provider documented clinical suspician of infection? N Sepsis Criteria Count: 0 Sepsis Risk: Low Sepsis Risk General Appearance no apparent distress Eye Exam - bilateral eye PERRL, bilateral eye EOMI Ear, Nose, Throat normal ENT inspection Neck supple Respiratory Status No: respiratory distress. Lung Sounds bilateral: lungs clear. 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 No Results/Orders Laboratory Tests 07/31/170: Sodium 139, Potassium 3.9, Chloride 104, Carbon Dioxide 29, BUN 8, Creatinine 0.6, Estimated Creat Clear 167, Estimated GFR (MDRD) 129, Glucose 105, Calcium 8.6, Total Bilirubin 0.1 L, AST 11 L, ALT 21, Alkaline Phosphatase 120 H, Creatine Kinase 71, CK-MB (CK-2) Rel Index 0.7, CK and CKMB Interp < 0.5, Troponin I < 0.02, Total Protein 7.3, Albumin 3.4, Globulin 3.9 H, Albumin/ Globulin Ratio 0.9 L, D-Dimer < 100, WBC 11.7, RBC 4.80, Hgb 13.4, Hct 40.9, MCV 85.1, RDW 13.0, Plt Count 316, MPV 7.7, Gran % 59.5, Gran # 7.0, Lymphocytes % 34.1, Monocytes % 3.6, Eosinophils % 2.3, Basophils % 0.4, Lymphocytes # 4.0, Monocytes # 0.4, Eosinophils # 0.3, Basophils # 0.1, PUBS MCHC 32.8, MCH 27.9 07/31/172124: Urine Color YELLOW, Urine Appearance CLEAR, Urine pH 6.5, Ur Specific [place] <= 1.005, Urine Protein NEGATIVE, Urine Ketones NEGATIVE, Urine Blood TRACE-INTACT, Urine Nitrate NEGATIVE, Urine Bilirubin NEGATIVE, Urine Urobilinogen 0.2, Ur Leukocyte Esterase TRACE H, Urine RBC 3-5, Urine WBC 5-10, Ur Squamous Epith Cells 3-5, Urine Glucose NEGATIVE Current Medication Orders Sig/Juan Start time Last Medication Dose Route Stop Time Status Admin Acetaminophen 0 .STK-MED ONE 07/31 2156 DC PO Prednisone 0 .STK-MED ONE 07/31 2155 DC .ROUTE Orders Procedure Date/time Status CULTURE, URINE 07/31 2125 Active ELECTROCARDIOGRAM REQUEST 07/31 2111 Active CHEST(2 VIEWS-NOT PORTABLE) 07/31 2111 Active URINALYSIS/COMPLETE 07/31 2111 Complete URINE 07/31 2111 Complete D-DIMER 07/31 2111 Complete COMPLETE METABOLIC PANEL 07/31 2111 Complete CBC WITH AUTO DIFF 07/31 2111 Complete CARDIAC ENZYMES 07/31 2111 Complete 12 LEAD EKG-BRETT (INITIAL) 07/31 UNK Active 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 of ischemic chgs XRAY/CT/US XRAY/CT/US XRAY chest XR interpretation by reviewed by me Xray Results normal/NAD Departure Departure Time of Disposition 2250 Disposition DC Home or Self Care(routine) Clinical Impression Primary Impression: Pleurisy Condition STABLE Referrals Dane Moe MD (Family) Patient Instructions DI for Pleurisy Additional Instructions use meds and see pcp for follow up Discharge Counseling Counseled pt/family regarding diagnosis, test results, follow up needs Prescriptions Current Visit Scripts No Known Home Medications ED Critical Care Critical Care No at 2257
--- NOTE | 2017-07-31 21:33 | Emergency Room Report ---
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 Onset of symptoms date/time:07/31/1708/08/1930 or onset unknown for: Treatment Prior to Arrival: GENERAL [facility]ECASTER Provided by: Sepsis Risk Assessment: Temp: 98.8 B/P: 100/56 MAP: 70 Pulse: 85 Resp: 18 Recent fever? N Clinical Suspician of Infection? N Mental Status: 1 - Regular (Normal Baseline) Sepsis Risk:Low Sepsis Risk Have you (or family members/close friends) recently traveled outside the [place]? N If Yes, where/when: Have you had exposure to infectious disease within the past month? N TB? Other? Specify: Source patient, RN notes reviewed, family, old records Exam Limitations no limitations Comment chest pain with component of pleuritic pain with no fever or hemoptysis which started tonight Cardiac Chest Pain Chest pain indicative of cardiac No Timing/Duration this evening Severity moderate ALLERGIES Coded Allergies: No Known Allergies (11/24/16) Home Medications Reported Medications No Known Home Medications History Medical History General CAD? No Angina: No [place]: No Hypertension? No Hyperlipidemia? No CHF? No DVT? No PE? No COPD? No Asthma? No Anemia? No GERD? No Gastric ulcers? No GI Bleed? No Hernia? No Thyroid Problems? No Hypothyroidism? No CVA? No Seizures? Yes Diabetes? No Insulin Dependent: No Insulin Pump: No Home FSBS? No Renal Insuffiency? No End Stage Renal Disease? No UTI? No Stones? No BPH? No GB Disease: No Nephritic Syndrome? No Asplenia? No Hepatitis? No Sickle Cell Disease? No Arthritis? No Migraines? No Cataracts? No Glaucoma? No MRSA? No HIV? No TB? No Anxiety? No Depression? No Cancer? No More? No Immunization Hx DT/Tetanus 1-4 YRS Flu 2014-FSN Pneumonia Refuses Surgical Hx Previous Surgery?Y [employer]UB FEET- BILATERAL [employer] Hx LMP On Depo Med-LMP Unknown Social History Smoking Hx Smoker: Light Tobacco Smoker Tobacco: Yes Type Cigarettes Packs/day 1 1/2 - 2 Packs Alcohol Alcohol: No Drugs none Review of Systems All Other Systems Reviewed and Negative Constitutional denies fever Eyes denies drainage ENT denies: ear discharge, epistaxis, throat pain. Respiratory cough, denies shortness of breath, denies wheezing Cardiovascular see HPI, chest pain, denies palpitations, denies syncope Gastrointestinal denies abdominal pain, denies diarrhea, denies vomiting Genitourinary denies: dysuria, frequency, hesitancy, hematuria. Musculoskeletal denies back pain, denies joint pain, denies neck pain Skin denies rash Psychiatric/Neurological denies headache, denies seizure Physical Exam Vital Signs Vital Signs Date Time Temp Pulse Resp B/P Pulse O2 O2 Flow FiO2 Ox Delivery Rate 07/31 2108 98.8 85 18 100/56 98 - WBC >12,000 or <4,000 or 10% bands? 2 or more SIRS Criteria Met? B/P:100/56 MAP:70 Creatinine >2.0? UA output<0.5ml/kg/hr for 2 hrs? Platelet count >100,000? Lactate >2.0mmol/1? INR >1.2 or PTT > than 60 sec? Evidence of Organ Dysfunction? Provider documented clinical suspician of infection? N Sepsis Criteria Count: 0 Sepsis Risk: Low Sepsis Risk General Appearance no apparent distress Eye Exam - bilateral eye PERRL, bilateral eye EOMI Ear, Nose, Throat normal ENT inspection Neck supple Respiratory Status No: respiratory distress. Lung Sounds bilateral: lungs clear. 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 No Results/Orders Laboratory Tests 07/31/170: Sodium 139, Potassium 3.9, Chloride 104, Carbon Dioxide 29, BUN 8, Creatinine 0.6, Estimated Creat Clear 167, Estimated GFR (MDRD) 129, Glucose 105, Calcium 8.6, Total Bilirubin 0.1 L, AST 11 L, ALT 21, Alkaline Phosphatase 120 H, Creatine Kinase 71, CK-MB (CK-2) Rel Index 0.7, CK and CKMB Interp < 0.5, Troponin I < 0.02, Total Protein 7.3, Albumin 3.4, Globulin 3.9 H, Albumin/ Globulin Ratio 0.9 L, D-Dimer < 100, WBC 11.7, RBC 4.80, Hgb 13.4, Hct 40.9, MCV 85.1, RDW 13.0, Plt Count 316, MPV 7.7, Gran % 59.5, Gran # 7.0, Lymphocytes % 34.1, Monocytes % 3.6, Eosinophils % 2.3, Basophils % 0.4, Lymphocytes # 4.0, Monocytes # 0.4, Eosinophils # 0.3, Basophils # 0.1, PUBS MCHC 32.8, MCH 27.9 07/31/172124: Urine Color YELLOW, Urine Appearance CLEAR, Urine pH 6.5, Ur Specific [place] <= 1.005, Urine Protein NEGATIVE, Urine Ketones NEGATIVE, Urine Blood TRACE-INTACT, Urine Nitrate NEGATIVE, Urine Bilirubin NEGATIVE, Urine Urobilinogen 0.2, Ur Leukocyte Esterase TRACE H, Urine RBC 3-5, Urine WBC 5-10, Ur Squamous Epith Cells 3-5, Urine Glucose NEGATIVE Current Medication Orders Sig/Juan Start time Last Medication Dose Route Stop Time Status Admin Acetaminophen 0 .STK-MED ONE 07/31 2156 DC PO Prednisone 0 .STK-MED ONE 07/31 2155 DC .ROUTE Orders Procedure Date/time Status CULTURE, URINE 07/31 2125 Active ELECTROCARDIOGRAM REQUEST 07/31 2111 Active CHEST(2 VIEWS-NOT PORTABLE) 07/31 2111 Active URINALYSIS/COMPLETE 07/31 2111 Complete URINE 07/31 2111 Complete D-DIMER 07/31 2111 Complete COMPLETE METABOLIC PANEL 07/31 2111 Complete CBC WITH AUTO DIFF 07/31 2111 Complete CARDIAC ENZYMES 07/31 2111 Complete 12 LEAD EKG-BRETT (INITIAL) 07/31 UNK Active 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 of ischemic chgs XRAY/CT/US XRAY/CT/US XRAY chest XR interpretation by reviewed by me Xray Results normal/NAD Departure Departure Time of Disposition 2250 Disposition DC Home or Self Care(routine) Clinical Impression Primary Impression: Pleurisy Condition STABLE Referrals Dane Moe MD (Family) Patient Instructions DI for Pleurisy Additional Instructions use meds and see pcp for follow up Discharge Counseling Counseled pt/family regarding diagnosis, test results, follow up needs Prescriptions Current Visit Scripts No Known Home Medications ED Critical Care Critical Care No at 2258
[2017-07-31 21:45] LABS: URINE BILIRUBIN - DIPSTICK NEGATIVE (NEG); URINE BLOOD TRACE-INTACT (NEG)
[2017-07-31 21:54] LABS: HEMOGLOBIN 13.4 g/dL (12.2-16.2); LYMPH % 34.1 % (10-50.0)
[2017-07-31 22:23] LABS: BUN 8 mg/dL (7-18)
[2017-07-31 22:34] LABS: GFR (ESTIMATED) 129 ML/MIN (59-)
[2017-07-31 23:18] VITALS: BP 100/56
--- NOTE | 2017-08-01 08:19 | RADIOLOGY REPORT PS360 ---
CHEST(2 VIEWS-NOT PORTABLE) HISTORY: chest pain ORDERING PHYSICIAN: Yenifer Bautista MD PATIENT AGE: 21 years COMPARISON: None available FINDINGS: The cardiomediastinal silhouette and pulmonary vascularity are within normal limits. The lungs are clear without infiltrates, suspicious nodules, or pleural effusions. No acute bony abnormalities. Calcified granuloma is present in the left lower lung zone IMPRESSION: No change with no acute finding
== END 2017-07-31 23:18 | disposition home or self-care (01) ==
LOC: ER 21:06
PROVIDERS: Emergency Medicine
DX: R09.1 Pleurisy (principal)

== ENCOUNTER 2017-08-07 17:26 | Emergency (ER) | payer MEDICAID ==
[~2017-08-07] VITALS: Ht 139.7 cm; Wt 70.3 kg
--- NOTE | 2017-08-07 18:04 | Urgent Treatment Center Report ---
History of Present Issue Date/Time Seen by Provider 08/07/17 9229 Visit Reason Pt arrived:Walked Presenting Problem:PT STATES SORE THROAT THAT BEGAN YESTERDAY Location if Accident: Onset of symptoms date/time:08/06/17/ or onset unknown for:MEDICAL HX UNKNOWN Have you (or family members/close friends) recently traveled outside the [place]? N If Yes, where/when: Have you had exposure to infectious disease within the past month? TB? Other? Specify: Source patient Exam Limitations no limitations Comment 21-year-old female presents for sore throat and clear nasal drainage for a few days. Denies fever ALLERGIES Coded Allergies: No Known Allergies (11/24/16) Home Medications Reported Medications No Known Home Medications History Medical History General CAD? No Angina: No [place]: No Hypertension? No Hyperlipidemia? No CHF? No DVT? No PE? No COPD? No Asthma? No Anemia? No GERD? No Gastric ulcers? No GI Bleed? No Hernia? No Thyroid Problems? No Hypothyroidism? No CVA? No Seizures? Yes Diabetes? No Insulin Dependent: No Insulin Pump: No Home FSBS? No Renal Insuffiency? No UTI? No Stones? No BPH? No GB Disease: No Nephritic Syndrome? No Asplenia? No Hepatitis? No Sickle Cell Disease? No Arthritis? No Migraines? No Cataracts? No Glaucoma? No MRSA? No HIV? No TB? No Anxiety? No Depression? No Cancer? No More? No Immunization HX DT/Tetanus 1-4 YRS Flu 2014-FSN Pneumonia Refuses Surgical Hx Previous Surgery?Y [employer] FEET- BILATERAL Social History Smoking Hx Smoker: Current Some Day Smoker Tobacco: Yes Type Cigarettes Packs/day 1 1/2 - 2 Packs Alcohol Alcohol: No Review of Systems All Other Systems Reviewed and Negative ENT see HPI, throat pain. Physical Exam Vital Signs Vital Signs Date Time Temp Pulse Resp B/P Pulse O2 O2 Flow FiO2 Ox Delivery Rate 08/07 1735 98.5 76 18 98/49 98 - WBC >12,000 or <4,000 or 10% bands? 2 or more SIRS Criteria Met? B/P:98/49 MAP:65 Creatinine >2.0? UA output<0.5ml/kg/hr for 2 hrs? Platelet count >100,000? Lactate >2.0mmol/1? INR >1.2 or PTT > than 60 sec? Evidence of Organ Dysfunction? Provider documented clinical suspician of infection? Sepsis Criteria Count: 0 Sepsis Risk: General Appearance normal appearance, WD/WN, no apparent distress Eye Exam - bilateral eye normal exam, bilateral eye PERRL, bilateral eye EOMI Ear, Nose, Throat hearing grossly normal, pharyngeal erythema Respiratory Status Yes: trachea midline, chest symmetrical, non tender chest. No: respiratory distress. Lung Sounds bilateral: normal breath sounds, lungs clear. Cardiovascular normal exam Neurologic alert, normal exam, oriented x 3 Medical Decision Making LABS/Meds/Orders Pt receiving controlled substance in ED? No Results/Orders Laboratory Tests 08/07/17 1738: Group A Strep Screen NOT DETECTED Orders Procedure Date/time Status [facility] STREP SCREEN 08/07 1737 Complete Departure Departure Time of Disposition 180 Disposition DC Home or Self Care(routine) Clinical Impression Primary Impression: Cold Condition STABLE Referrals Dane Moe MD (Family): 1 Day-Call Office Patient Instructions Common Cold, DI for Common Cold Additional Instructions Increase fluids Tylenol /Motrin as needed for comfort Follow-up with PCP this week if no improvement If signs or symptoms do not improve or worsen return or be seen in the ER Discharge Counseling Counseled pt/family regarding diagnosis, test results, medications/RX, home care, follow up needs Prescriptions Current Visit Scripts No Known Home Medications at 1803
--- NOTE | 2017-08-07 18:04 | Urgent Treatment Center Report ---
History of Present Issue Date/Time Seen by Provider 08/07/17 7699 Visit Reason Pt arrived:Walked Presenting Problem:PT STATES SORE THROAT THAT BEGAN YESTERDAY Location if Accident: Onset of symptoms date/time:08/06/17/ or onset unknown for:MEDICAL HX UNKNOWN Have you (or family members/close friends) recently traveled outside the [place]? N If Yes, where/when: Have you had exposure to infectious disease within the past month? TB? Other? Specify: Source patient Exam Limitations no limitations Comment 21-year-old female presents for sore throat and clear nasal drainage for a few days. Denies fever ALLERGIES Coded Allergies: No Known Allergies (11/24/16) Home Medications Reported Medications No Known Home Medications History Medical History General CAD? No Angina: No [place]: No Hypertension? No Hyperlipidemia? No CHF? No DVT? No PE? No COPD? No Asthma? No Anemia? No GERD? No Gastric ulcers? No GI Bleed? No Hernia? No Thyroid Problems? No Hypothyroidism? No CVA? No Seizures? Yes Diabetes? No Insulin Dependent: No Insulin Pump: No Home FSBS? No Renal Insuffiency? No UTI? No Stones? No BPH? No GB Disease: No Nephritic Syndrome? No Asplenia? No Hepatitis? No Sickle Cell Disease? No Arthritis? No Migraines? No Cataracts? No Glaucoma? No MRSA? No HIV? No TB? No Anxiety? No Depression? No Cancer? No More? No Immunization HX DT/Tetanus 1-4 YRS Flu 2014-FSN Pneumonia Refuses Surgical Hx Previous Surgery?Y [employer] FEET- BILATERAL Social History Smoking Hx Smoker: Current Some Day Smoker Tobacco: Yes Type Cigarettes Packs/day 1 1/2 - 2 Packs Alcohol Alcohol: No Review of Systems All Other Systems Reviewed and Negative ENT see HPI, throat pain. Physical Exam Vital Signs Vital Signs Date Time Temp Pulse Resp B/P Pulse O2 O2 Flow FiO2 Ox Delivery Rate 08/07 1735 98.5 76 18 98/49 98 - WBC >12,000 or <4,000 or 10% bands? 2 or more SIRS Criteria Met? B/P:98/49 MAP:65 Creatinine >2.0? UA output<0.5ml/kg/hr for 2 hrs? Platelet count >100,000? Lactate >2.0mmol/1? INR >1.2 or PTT > than 60 sec? Evidence of Organ Dysfunction? Provider documented clinical suspician of infection? Sepsis Criteria Count: 0 Sepsis Risk: General Appearance normal appearance, WD/WN, no apparent distress Eye Exam - bilateral eye normal exam, bilateral eye PERRL, bilateral eye EOMI Ear, Nose, Throat hearing grossly normal, pharyngeal erythema Respiratory Status Yes: trachea midline, chest symmetrical, non tender chest. No: respiratory distress. Lung Sounds bilateral: normal breath sounds, lungs clear. Cardiovascular normal exam Neurologic alert, normal exam, oriented x 3 Medical Decision Making LABS/Meds/Orders Pt receiving controlled substance in ED? No Results/Orders Laboratory Tests 08/07/17 1738: Group A Strep Screen NOT DETECTED Orders Procedure Date/time Status [facility] STREP SCREEN 08/07 1737 Complete Departure Departure Time of Disposition 180 Disposition DC Home or Self Care(routine) Clinical Impression Primary Impression: Cold Condition STABLE Referrals Dane Moe MD (Family): 1 Day-Call Office Patient Instructions Common Cold, DI for Common Cold Additional Instructions Increase fluids Tylenol /Motrin as needed for comfort Follow-up with PCP this week if no improvement If signs or symptoms do not improve or worsen return or be seen in the ER Discharge Counseling Counseled pt/family regarding diagnosis, test results, medications/RX, home care, follow up needs Prescriptions Current Visit Scripts No Known Home Medications at 1803
[2017-08-07 18:06] VITALS: BP 98/49
== END 2017-08-07 18:10 | disposition home or self-care (01) ==
LOC: UTC 17:26
DX: J00 Acute nasopharyngitis [common cold] (principal); F17.210 Nicotine dependence, cigarettes, uncomplicated

== ENCOUNTER 2017-09-11 20:08 | Emergency (ER) | payer MEDICAID ==
[~2017-09-11] VITALS: Ht 139.7 cm; Wt 69.4 kg
--- OUTSIDE RECORDS SUMMARY | 2017-09-11 20:17 | External Medical Summary Rpt | CCD ---
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 [address] PETE FREEAMN THYROID 4 [facility] STIMULATI INC INC NG HORMONE TSH BLOOD 64676 [facility] FREEMAN COUNT 4 [facility] COMPLETE INC INC AUTO&AUTO DIFRNTL WBC URNLS DIP 55707 JUAN ANTONIOURBART ROMANOURBART 4 [facility] LET REAGENT AUTO MICROSCOP Y URINE 32533 CASIE JASON 4 [facility] VISUAL COLOR CMPRSN METHS URINE 03984 [facility] FREEM[facility] 3 [facility] VISUAL COLOR CMPRSN METHS IADNA 95386 [facility] FREEMAN CHL[facility]DIA 3 [facility] TRACHOMAT IS AMPLIFIED PROBE TQ IADNA 84289 PETE FREEMAN NEISSERIA 3 [facility] GONORRHOE AE AMPLIFIED PROBE TQ INJECTION J1050 [facility] OGESTERON E ACETATE 1 MG URINE 01580 [facility] FREEMAN 3 [facility] [place] [address] PETE FREEMAN STREPTOCO 3 [facility] CCUS INC INC GROUP A THERAPEUT 83290 [facility]RE[facility] IC 3 [facility] PROPHYLAC INC INC TIC/DX INJECTION SUBQ/IM URINE 94182 [facility] 3 [facility] TEST INC INC VISUAL COLOR CMPRSN METHS IMMUNOASS 86350 PETE FREEMAN AY NFCT 3 [facility] AGT ANTB INC INC QUAL/SEMI NADINE 1 STEP URNLS DIP 54430 [facility] 3 [facility] STICK/TAB INC INC LET REAGENT AUTO MICROSCOP Y BLOOD 59399 [facility]AN COUNT 3 [facility] COMPLETE INC INC AUTO&AUTO DIFRNTL WBC COMPREHEN 67273 [facility] SIVE 3 [facility] METABOLIC INC INC PANEL FT INSRT L3010 CENTER CENTER REMV MOLD 2 FOR FOR PT MDL ORTHOTIC ORTHOTIC LNGTUDNL & PROSTH & PROSTH ARCH SUPP EA RADIOLOGI [address] EXAMINATI FOR FOR ON FOOT 2 CHILD CHILD VIEWS SUSCEPTIB 98105 PETE FREEMAN LTY STDY 1 [facility] ANTIMICRB INC INC IAL MICRO/[place] [address] [facility] STREPTOCO 1 [facility] CCUS INC INC GROUP A CUL BACT 33458 [facility] XCPT 1 [facility] URINE INC INC BLOOD/STO OL AEROBIC ISOL CUL BACT 94242 [facility]E FREEMAN AEROBIC 1 [facility] ADDL INC [place] [address] PET[facility] FREEMAN STREPTOCO 1 [facility] CCUS INC INC GROUP A Encounters Encounter Start End Date Code Location Performer Type Date EMERGENCY 42548 ALEXANDRA BAUTISTA DEPT 7 7 PHYSICIAN VISIT S, [facility] HIGH SEVERITY& THREAT [facility] PETE - 7 7 [facility] OUTPATIEN INC T EMERGENCY 72703 PETE 7 7 [facility] DEPARTMEN INC T VISIT MODERATE SEVERITY EMERGENCY 48920 ALEXANDRA PICKERING DEPT 7 7 PHYSICIAN U VISIT S, [facility] HIGH SEVERITY& THREAT [facility] PETE - 7 7 [facility] OUTPATIEN INC T EMERGENCY 58170 PETE 7 7 [facility] DEPARTMEN INC T VISIT MODERATE SEVERITY HOSPITAL PETE - 7 7 [facility] OUTPATIEN INC T OFFICE 98153 [facility]E OUTPATIEN 7 7 [facility] T VISIT 5 INC MINUTES OFFICE 97607 [facility] DEE DEE OUTPATIEN 7 7 PHYSICIAN T VISIT GROUP 25 MINUTES EMERGENCY 18635 ALEXANDRA BAUTISTA DEPT 7 7 PHYSICIAN VISIT S, [facility] HIGH SEVERITY& THREAT [facility] PETE - 7 7 [facility] OUTPATIEN INC T OFFICE 97636 [facility]E OUTPATIEN 7 7 [facility] T VISIT 5 INC MINUTES EMERGENCY 97329 PETE 7 7 [facility] DEPARTMEN INC T VISIT MODERATE SEVERITY EMERGENCY 82594 ALEXANDRA BAUTISTA DEPT 6 6 PHYSICIAN SIDNEY VISIT S, [facility] HIGH SEVERITY& THREAT [facility] OFFICE 05840 [facility] HARPEL OUTPATIEN 6 6 PHYSICIAN CHRISTOPHER T VISIT 5 S GROUP MINUTES OFFICE 34123 [facility] T VISIT [facility] DEPT HLTH DEPT 15 JOSUE JOSUE MINUTES HOSPITAL PETE - 6 6 [facility] INPATIENT INC OFFICE 30529 [facility] QUIÑONES OUTPATIEN 6 6 PHYSICIAN SUSANA T VISIT S GROUP 15 MINUTES HOSPITAL PETE - 6 6 [facility] OUTPATIEN INC T [facility] PETE - 6 6 [facility] OUTPATIEN INC T [facility]OSPITAL PETE - 6 6 [facility] OUTPATIEN INC T OFFICE 98935 [facility] QUIÑONES OUTPATIEN 6 6 PHYSICIAN SUSANA T VISIT S GROUP 15 MINUTES [facility] PETE - 6 6 [facility] OUTPATIEN INC T OFFICE 74429 [facility] QUIÑONES OUTPATIEN 6 6 PHYSICIAN SUSANA T VISIT S GROUP 15 MINUTES OFFICE 77529 [facility] QUIÑONES OUTPATIEN 6 6 PHYSICIAN SUSANA T VISIT S GROUP 15 MINUTES HOSPITAL PETE - 6 6 [facility] OUTPATIEN INC [facility] PETE - 6 6 [facility] OUTPATIEN INC T OFFICE 19171 [facility] QUIÑONES OUTPATIEN 6 6 PHYSICIAN SUSANA T VISIT S GROUP 15 MINUTES OFFICE 05668 [facility] QUIÑONES OUTPATIEN 6 6 PHYSICIAN SUSANA T VISIT S GROUP 15 MINUTES OFFICE 38589 [facility] T VISIT DEPT DEPT 10 CHIDI MURILLO MINUTES OFFICE 61642 [facility] T VISIT DEPT DEPT 10 CHIDI MURILLO MINUTES OFFICE 45081 [facility] OUT[facility]IEN 6 6 [facility] T VISIT INTERNAL 15 MED MINUTES OFFICE 03605 [facility] QUIÑONES OUTPATIEN 6 6 PHYSICIAN SUSANA T VISIT S GROUP 15 MINUTES OFFICE 24085 [facility] T VISIT DEPT DEPT 10 CHIDI MURILLO MINUTES OFFICE 10279 [facility] DOROTHY TER OUTPATIEN 6 6 PHYSICIAN T VISIT S GROUP 15 MINUTES HOSPITAL PETE - 6 6 [facility] OUTPATIEN INC T OFFICE 25122 [facility] OUTPATIEN 6 6 PHYSICIAN T VISIT S GROUP 15 MINUTES OFFICE 54936 [facility] QUIÑONES OUTPATIEN 6 6 PHYSICIAN SUSANA T VISIT S GROUP 15 MINUTES OFFICE 82790 [facility] T VISIT DEPT DEPT 10 CHIDI MURILLO MINUTES OFFICE 45344 [facility] QUIÑONES OUTPATIEN 5 5 PHYSICIAN SUSANA T VISIT S GROUP 15 MINUTES OFFICE 94294 [facility] T VISIT 5 DEPT DEPT MINUTES [facility]IDI MURILLO OFFICE 51221 [facility] T VISIT DEPT DEPT 10 CHIDI MURILLO MINUTES OFFICE 76951 [facility] T VISIT DEPT DEPT 10 CHIDI MURILLO [facility] [place] - 5 5 N OUTPATIEN COMMUNTIY T HOSPITA EMERGENCY 74812 [facility] 5 5 N DEPARTMEN COMMUNTIY T VISIT HOSPITA HIGH/URGE NT SEVERITY OFFICE 86549 [facility] T VISIT DEPT DEPT 10 CHIDI MURILLO MINUTES OFFICE 41623 DEA VIEYRA, OUTPATIEN 5 5 MSO, FELI III LEANNE T NEW 30 MINUTES OFFICE 10878 [facility] T VISIT DEPT DEPT 10 CHIDI MURILLO MINUTES OFFICE 41801 [facility] T VISIT 5 DEPT DEPT MINUTES CHIDI MURILLO OFFICE 01858 [facility] QUIÑONES OUTPATIEN 5 5 PHYSICIAN SUSANA T VISIT S GROUP 15 MINUTES OFFICE 95547 HABASH HABASH OUTPATIEN 5 5 KEF KEF T [facility] 45 [facility] PETE - 5 5 [facility] OUTPATIEN INC T [facility]OSPITAL PETE - 5 5 [facility] OUTPATIEN INC T OFFICE 30246 [facility] QUIÑONES OUTPATIEN 5 5 PHYSICIAN SUSANA T NEW 45 S GROUP MINUTES OFFICE 42007 [facility] T VISIT DEPT DEPT 10 CHIDI MURILLO MINUTES OFFICE 44617 [facility] 5 [facility] T VISIT DEPT DEPT 10 CHIDI MURILLO MINUTES OFFICE [address] OUTPATIEN 5 5 [facility] 10 MINUTES OFFICE 59811 [facility] T VISIT DEPT DEPT 10 CHIDI MURILLO MINUTES OFFICE 14118 [facility] 5 [facility] T VISIT DEPT DEPT 10 CHIDI MURILLO MINUTES OFFICE 94496 [facility] 5 5 [facility] T VISIT DEPT DEPT 10 CHIDI MURILLO MINUTES EMERGENCY 82389 ALEXANDRA DALEY 5 5 PHYSICIAN CHARLOTET MUKUNDMEN [facility] T VISIT MODERATE SEVERITY [facility]OSPITAL [facility]E - 5 5 [facility] OUTPATIEN INC T EMERGENCY 39802 [facility]E 5 5 [facility] DEPARTMEN INC T VISIT LOW/MODER SEVERITY OFFICE 35833 [facility] T VISIT DEPT DEPT 10 HCIDI MURILLO MINUTES OFFICE 77602 [facility] 5 [facility] T VISIT DEPT DEPT 10 CHIDI MURILLO [facility] PETE - 5 5 [facility] OUTPATIEN INC T OFFICE 27429 [facility] T VISIT DEPT DEPT 10 CHIDI MURILLO MINUTES OFFICE 85064 [facility] T VISIT DEPT DEPT 10 CHIDI MURILLO MINUTES OFFICE 70865 [facility] 5 [facility] T VISIT DEPT DEPT 10 CHIDI MURILLO MINUTES OFFICE 31014 [facility] OUT[facility] 5 5 [facility] T VISIT INTERNAL 15 MED MINUTES OFFICE 43764 [facility] T VISIT DEPT DEPT 10 CHIDI MURILLO MINUTES OFFICE 80866 [facility] T VISIT DEPT DEPT 10 CHIDI MURILLO MINUTES OFFICE 32457 [facility] OUTPATI[facility] 5 5 [facility] T VISIT INTERNAL 25 MED MINUTES OFFICE 00223 [facility] ALFREDO OUTPATIEN 5 5 PHYSICIAN ZOË T VISIT S GROUP 10 MINUTES OFFICE 99353 [facility] FRYMAN OUTPATIEN 5 5 PHYSICIAN EUG T VISIT S GROUP 15 MINUTES OFFICE 02825 [facility] T VISIT DEPT DEPT 10 CHIDI MURILLO MINUTES OFFICE 33261 [facility] T VISIT DEPT DEPT 10 CHIDI MURILLO MINUTES OFFICE 18626 [facility] 4 [facility] T VISIT DEPT DEPT 10 CHIDI MURILLO MINUTES OFFICE 75603 [facility] T VISIT DEPT DEPT 10 CHIDI MURILLO MINUTES OFFICE 54962 [facility] OUTPATIEN 4 4 [facility] T VISIT INTERNAL 25 MED MINUTES OFFICE 37942 [facility] T VISIT DEPT DEPT 10 CHIDI MURILLO MINUTES OFFICE 54852 [facility] 4 [facility] T VISIT DEPT DEPT 10 CHIDI MURILLO MINUTES OFFICE 06571 [facility] T VISIT DEPT DEPT 10 CHIDI MURILLO MINUTES OFFICE 02992 [facility] T VISIT DEPT DEPT 10 CHIDI MURILLO MINUTES OFFICE 30200 [facility] ALISSA OUTPATIEN 4 4 PHYSICIAN SIDNEY T VISIT S GROUP 15 MINUTES OFFICE 87214 [facility] T VISIT DEPT DEPT 10 CHIDI MURILLO MINUTES OFFICE 28078 [facility] VISIT DEPT DEPT 10 CHIDI MURILLO MINUTES OFFICE 77337 [facility] T VISIT DEPT DEPT 10 CHIDI MURILLO MINUTES OFFICE 65019 [facility] T VISIT DEPT DEPT 10 CHIDI MURILLO MINUTES OFFICE 77271 [facility] T VISIT DEPT DEPT 10 CHIDI MURILLO MINUTES OFFICE 95457 [facility] T VISIT DEPT DEPT 10 CHIDI MURILLO MINUTES OFFICE 53313 [facility] OUTPATIEN 4 4 PHYSICIAN T NEW 45 S GROUP [facility] PETE - 4 4 [facility] OUTPATIEN INC T OFFICE 35334 DINA DINA OUTPATIEN 4 4 MAR[facility] ANTONIA MARIA ANTONIA T VISIT 15 MINUTES HOSPITAL [facility]E - 4 4 [facility] OUTPATIEN INC T OFFICE 76092 DINA DINA OUTPATIEN 4 4 MAR[facility] ANTONIA MARIA ANTONIA T VISIT 15 MINUTES HOSPITAL [facility] - 4 4 [facility] OUTPATIEN INC T [facility] - 4 4 [facility] T EMERGENCY 66974 NENAON 4 4 [facility] T VISIT MODERATE SEVERITY EMERGENCY 25352 DOROTEO FLOWERSIN 4 4 [facility] T VISIT HIGH/URGE NT SEVERITY OFFICE 70271 PETE FREEMAN OUTPATIEN 3 3 [facility] T VISIT 5 [facility] MINUTES HEAL HEAL PERIODIC 86483 PETE FREEMAN PREVENTIV 3 3 [employer] [facility] E MED EST CENTER CENTER PATIENT 11-07YRS OFFICE 20725 [facility] FREEMAN OUTPATIEN 3 3 [facility] T VISIT CENTER CENTER 15 MINUTES Emergency OTIS Lechuga MD (ER) 3 21:22 3 22:08 [facility] PETE - 3 3 [facility] OUTPATIEN INC T EMERGENCY 52944 PETE 3 3 [facility] DEPARTMEN INC T VISIT LOW/MODER SEVERITY EMERGENCY 65686 DYLAN LECHUGA SHOSHANA 3 3 EMERGENCY DEPARTMEN SERVICES T VISIT HIGH/URGE NT SEVERITY Emergency OTIS Bautista MD (ER) 3 23:25 3 00:38 [facility] PETE - 3 3 [facility] OUTPATIEN INC T EMERGENCY 10163 PETE 3 3 [facility] DEPARTMEN INC T VISIT MODERATE SEVERITY OFFICE 31271 [facility] OUTPATIEN 2 2 [facility] [address] [facility] - 2 2 HOSPITALS OUTPATIEN FOR T CHILD OFFICE 02696 [facility] 2 [facility] T NEW 10 FOR MINUTES CHILD OFFICE 77121 [place] OUTPATIEN 2 2 MEDICAL T NEW 30 SERV MINUTES FOUNDATIO OFFICE 21288 [facility]E FRE[facility]AN OUTPATIEN 2 2 [facility] 10 MINUTES OFFICE 07239 [facility] FRE[facility]AN OUTPATIEN 1 1 [facility] 10 MINUTES OFFICE 98801 [facility] FRE[facility]AN OUTPATIEN 1 1 [facility] 10 MINUTES OFFICE 60218 [facility] OUTPATIEN 1 1 [facility] 10 MINUTES OFFICE 39428 [facility]RE[facility]AN OUTPATIEN 1 1 [facility] T VISIT 5 [facility] MINUTES OFFICE 60780 [facility] Elizondo OUTPATIEN 1 1 LEISA LUKE T VISIT PSC 15 MINUTES OFFICE 10592 [facility]RE[facility]AN OUTPATIEN 1 1 [facility] 10 MINUTES OFFICE 24006 EPTE FREEMAN OUTPATIEN 1 1 [facility] 10 MINUTES OFFICE 97070 [facility]E [facility] OUTPATIEN 1 1 [facility] 10 MINUTES [facility] - 1 1 [facility] OUTPATIEN INC T OFFICE 73630 [place] OUTPATIEN 1 1 [place] MARIA ANTONIA T NEW 20 INTERNAL MINUTES MEDI OFFICE 23066 PETE PETE OUTPATIEN 1 1 [facility] 10 MINUTES OFFICE 27351 PETE [facility]E OUTPATIEN 1 1 [facility] 10 MINUTES OFFICE 03413 PETE PETE OUTPATIEN 1 1 [facility] 10 MINUTES EMERGENCY 31888 PETE 1 1 [facility] DEPARTMEN INC T VISIT MODERATE SEVERITY EMERGENCY 35802 DYLAN BAUTISTA 1 1 EMERGENCY [facility] DEPARTMEN SERVICES T VISIT HIGH/URGE NT SEVERITY [facility]OSPITAL [facility] - 1 1 [facility] OUTPATIEN INC T OFFICE 31193 [facility]E [facility] OUTPATIEN 1 1 [facility] 10 MINUTES OFFICE 84090 [facility] FRE[facility] OUTPATIEN 1 1 [facility] 10 MINUTES OFFICE 88161 [facility] FREEMAN OUTPATIEN 1 1 [facility] 15 MINUTES OFFICE 46065 [facility] FREEMAN OUTPATIEN 1 1 [facility] 10 MINUTES OFFICE 20243 PETE FREEMAN OUTPATIEN 0 0 [facility] 10 MINUTES OFFICE 53331 [facility]E FREEMAN OUTPATIEN 0 0 [facility]LE T VISIT 5 [facility] MINUTES OFFICE 01963 [facility]E FREEMAN OUTPATIEN 0 0 [facility]LE T VISIT 5 [facility] MINUTES OFFICE 23655 [facility]E FREEMAN OUTPATIEN 0 0 [facility]LE T VISIT 5 [facility] MINUTES OFFICE 94829 [facility] FREEMAN OUTPATIEN 0 0 [facility]LE T VISIT 5 [facility] MINUTES OFFICE 75202 [facility]E FREEMAN OUTPATIEN 0 0 [facility] 15 MINUTES OFFICE 44353 PETE FREEMAN OUTPATIEN 0 0 [facility]LE T VISIT 5 [facility] MINUTES [facility] PETE - 0 0 [facility] OUTPATIEN INC T EMERGENCY 99440 PETE 0 0 [facility] DEPARTMEN INC T VISIT LOW/MODER SEVERITY EMERGENCY 62029 DYLAN BERGMAN [address] [facility] T VISIT MODERATE SEVERITY
--- OUTSIDE RECORDS SUMMARY | 2017-09-11 20:17 | External Medical Summary Rpt | CCD ---
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 MINUTES OFFICE 48421 [facility] T VISIT DEPT DEPT 10 [facility] MINUTES OFFICE 72703 [facility] 6 6 [facility] T VISIT INTERNAL 15 MED MINUTES OFFICE 92469 [facility] QUIÑONES OUTPATIEN 6 6 PHYSICIAN SUSANA T VISIT S GROUP 15 MINUTES OFFICE 10403 [facility] T VISIT DEPT DEPT 10 CHIDI MURLILO MINUTES OFFICE 45428 [facility] DOROTHY TER OUTPATIEN 6 6 PHYSICIAN T VISIT S GROUP 15 MINUTES HOSPITAL PETE - 6 6 [facility] OUTPATIEN INC T OFFICE 44887 [facility] TER OUTPATIEN 6 6 PHYSICIAN T VISIT S GROUP 15 MINUTES OFFICE 72561 [facility] QUIÑONES OUTPATIEN 6 6 PHYSICIAN SUSANA T VISIT S GROUP 15 MINUTES OFFICE 07479 [facility] T VISIT DEPT DEPT 10 CH[facility] MURILLO MINUTES OFFICE 85783 [facility] QUIÑONES OUTPATIEN 5 5 PHYSICIAN SUSANA T VISIT S GROUP 15 MINUTES OFFICE 08623 [facility] T VISIT 5 DEPT DEPT MINUTES [facility] OFFICE 88265 [facility] T VISIT DEPT DEPT 10 [facility] MINUTES OFFICE 33530 [facility] T VISIT DEPT DEPT 10 CHIDI MURILLO [facility] [place] - 5 5 N OUTPATIEN COMMUNTIY T HOSPITA EMERGENCY 70200 [facility] 5 5 N DEPARTMEN COMMUNTIY T VISIT HOSPITA HIGH/URGE NT SEVERITY OFFICE 01280 [facility] T VISIT DEPT DEPT 10 CHIDI MURILLO MINUTES OFFICE 02249 DEA VIEYRA, OUTPATIEN 5 5 MSO, FELI III LEANNE T NEW 30 MINUTES OFFICE 35225 [facility] T VISIT DEPT DEPT 10 [facility]UR[facility] MINUTES OFFICE 35621 [facility] T VISIT 5 DEPT DEPT MINUTES [facility]O OFFICE 24414 [facility] QUIÑONES OUTPATIEN 5 5 PHYSICIAN SUSANA T VISIT S GROUP 15 MINUTES OFFICE 50593 [facility] HABASH OUTPATIEN [address] [facility] 45 [facility] PETE - 5 5 [facility] OUTPATIEN INC T [facility]PITAL [facility] - 5 5 [facility] OUTPATIEN INC T OFFICE 73493 [facility] QUIÑONES OUTPATIEN 5 5 PHYSICIAN SUSANA T NEW 45 S GROUP MINUTES OFFICE 31192 [facility] T VISIT DEPT DEPT 10 [facility] [place] MINUTES OFFICE 40545 [facility] T VISIT DEPT DEPT 10 CH[facility]I MURILLO MINUTES OFFICE [address] [facility] [address] OUTPATIEN 5 5 [facility] 10 MINUTES OFFICE 85093 [facility] T VISIT DEPT DEPT 10 [facility] [place] MINUTES OFFICE 92387 [facility] T VISIT DEPT DEPT 10 [facility] MINUTES OFFICE 50271 [facility] 5 [facility] T VISIT DEPT DEPT 10 [facility] MINUTES EMERGENCY 15974 ALEXANDRA DALEY 5 5 PHYSICIAN [facility] T VISIT MODERATE SEVERITY [facility] - 5 5 [facility] OUTPATIEN INC T EMERGENCY 44620 [facility] 5 5 [facility] DEPARTMEN INC T VISIT LOW/MODER SEVERITY OFFICE 25513 [facility] T VISIT DEPT DEPT 10 [facility] MINUTES OFFICE 39557 [facility] T VISIT DEPT DEPT 10 CHIDI MURILLO [facility] PETE - 5 5 [facility] OUTPATIEN INC T OFFICE 65620 [facility] T VISIT DEPT DEPT 10 [facility] MINUTES OFFICE 45989 [facility] T VISIT DEPT DEPT 10 [facility] MINUTES OFFICE 01493 [facility] T VISIT DEPT DEPT 10 [facility] MINUTES OFFICE 59565 [facility] 5 5 [facility] T VISIT INTERNAL 15 MED MINUTES OFFICE 41344 [facility] T VISIT DEPT DEPT 10 [facility] MINUTES OFFICE 13882 [facility] T VISIT DEPT DEPT 10 [facility] MINUTES OFFICE 26190 [facility] 5 5 [facility] T VISIT INTERNAL 25 MED MINUTES OFFICE 66441 [facility] ALFREDO OUTPATIEN 5 5 PHYSICIAN ZOË T VISIT S GROUP 10 MINUTES OFFICE 87623 [facility] FRYMAN OUTPATIEN 5 5 PHYSICIAN EUG T VISIT S GROUP 15 MINUTES OFFICE 80144 [facility] T VISIT DEPT DEPT 10 [facility] MINUTES OFFICE 87871 [facility] T VISIT DEPT DEPT 10 [facility] MINUTES OFFICE 56332 [facility] T VISIT DEPT DEPT 10 [facility] MINUTES OFFICE 57485 [facility] T VISIT DEPT DEPT 10 [facility] MINUTES OFFICE 17989 [facility] OUTPATI[facility] 4 4 [facility] T VISIT INTERNAL 25 MED MINUTES OFFICE 98865 [facility] VISIT DEPT DEPT 10 [facility] MINUTES OFFICE 19525 [facility] VISIT DEPT DEPT 10 [facility] MINUTES OFFICE 85860 [facility] VISIT DEPT DEPT 10 [facility] MINUTES OFFICE 52537 [facility] T VISIT DEPT DEPT 10 [facility] MINUTES OFFICE 18484 [facility] ALISSA OUTPATIEN 4 4 PHYSICIAN SIDNEY T VISIT S GROUP 15 MINUTES OFFICE 33288 [facility] VISIT DEPT DEPT 10 [facility] MINUTES OFFICE 61654 [facility] VISIT DEPT DEPT 10 [facility] MINUTES OFFICE 32024 [facility] VISIT DEPT DEPT 10 [facility] MINUTES OFFICE 27379 [facility] T VISIT DEPT DEPT 10 [facility] MINUTES OFFICE 39750 [facility] VISIT DEPT DEPT 10 [facility] MINUTES OFFICE 25504 [facility] VISIT DEPT DEPT 10 [facility] MINUTES OFFICE 54860 [facility] OUTPATIEN 4 4 PHYSICIAN T NEW 45 S GROUP [facility] PETE - 4 4 [facility] OUTPATIEN INC T OFFICE 07128 DINA DINA OUTPATIEN 4 4 [facility] ANTON[facility] T VISIT 15 MINUTES HOSPITAL [facility]E - 4 4 [facility] OUTPATIEN INC T OFFICE 77492 [facility] DINA OUTPATIEN 4 4 [facility] T VISIT 15 MINUTES HOSPITAL PETE - 4 4 [facility] OUTPATIEN INC T [facility] - 4 4 [facility] T EMERGENCY 10547 NENAON 4 4 [facility] T VISIT MODERATE SEVERITY EMERGENCY 51021 DOROTEO FLOWERSIN 4 4 [facility] T VISIT HIGH/URGE NT SEVERITY OFFICE 65405 [facility] OUTPATIEN 3 3 [facility] MIN[facility] HEAL HEAL PERIODIC 43929 PETE FREEMAN PREVENTIV 3 3 Vericept [facility] CENTER PATIENT [id number] OFFICE 19932 [facility] FREEMAN OUTPATIEN 3 3 [facility] [employer] [facility] C[facility] CENTER 15 MINUTES Emergency OTIS Lechuga MD (ER) 3 21:22 3 22:08 [facility] PETE - 3 3 [facility] OUTPATIEN INC T EMERGENCY 31439 PETE 3 3 [facility] DEPARTMEN INC T VISIT LOW/MODER SEVERITY EMERGENCY 98575 DYLAN LECHUGA SHOSHANA 3 3 EMERGENCY DEPARTMEN SERVICES T VISIT HIGH/URGE NT SEVERITY Emergency OTIS Bautista MD (ER) 3 23:25 3 00:38 [facility] PETE - 3 3 [facility] OUTPATIEN INC T EMERGENCY 57533 PETE 3 3 [facility] DEPARTMEN INC T VISIT MODERATE SEVERITY OFFICE 51701 [facility] F[facility] OUTPATIEN 2 2 [facility]ES [facility] 2 [facility]PITALS OUTPATIEN FOR T CHILD OFFICE 61669 [facility] 2 [facility]IT[facility] T NEW 10 FOR MINUTES CHILD OFFICE 12331 DE OUTPATIEN 2 2 MEDICAL T NEW 30 SERV MINUTES FOUNDATIO OFFICE 64367 [facility] F[facility] OUTPATIEN 2 2 [facility] 10 MINUTES OFFICE 67777 [facility]RE[facility]AN OUTPATIEN 1 1 [facility] 10 MINUTES OFFICE 19428 [facility]AN OUTPATIEN 1 1 [facility] 10 MINUTES OFFICE 21698 [facility] OUTPATIEN 1 1 [facility] 10 MINUTES OFFICE 98883 [facility] OUTPATIEN 1 1 [facility]IS[facility] 5 [facility] MINUTES OFFICE 05688 [facility] El[facility]ondo OUTPATIEN 1 1 LEISA [facility]KE T VISIT PSC 15 MINUTES OFFICE 61595 [facility] FRE[facility]AN OUTPATIEN 1 1 [facility] 10 MINUTES OFFICE 20859 [facility] OUTPATIEN 1 1 [facility] 10 MINUTES OFFICE 55310 [facility]E [facility] OUTPATIEN 1 1 [facility] 10 MIN[facility]ES [facility] - 1 1 [facility] OUTPATIEN INC T OFFICE 64720 [facility] OUTPATIEN 1 1 [facility] MARIA ANTONIA T NEW 20 INTERNAL MINUTES MEDI OFFICE 18850 [facility]E PETE OUTPATIEN 1 1 [facility] 10 MINUTES OFFICE 23103 [facility]E OUTPATIEN 1 1 [facility] 10 MINUTES OFFICE 12785 PETE [facility]E OUTPATIEN 1 1 [facility] 10 MINUTES EMERGENCY 74440 PETE 1 1 [facility] DEPARTMEN INC T VISIT MODERATE SEVERITY EMERGENCY 64377 DYLAN BAUTISTA 1 1 EMERGENCY SIDNEY DEPARTMEN SERVICES T VISIT HIGH/URGE NT SEVERITY HOSPITAL [facility] - 1 1 [facility] OUTPATIEN INC T OFFICE 14352 [facility] OUTPATIEN 1 1 [facility] 10 MINUTES OFFICE 46551 [facility] OUTPATIEN 1 1 [facility] 10 MINUTES OFFICE 92423 [facility] OUTPATIEN 1 1 [facility] 15 MINUTES OFFICE 58484 [facility] OUTPATIEN 1 1 [facility] 10 MINUTES OFFICE 44092 [facility] FREEMAN OUTPATIEN 0 0 [facility] 10 MINUTES OFFICE 31268 [facility] FRE[facility]AN OUTPATIEN 0 0 [facility] VISIT 5 [facility] MINUTES OFFICE 08777 [facility] FRE[facility] OUTPATIEN 0 0 [facility] VISIT 5 [facility] MINUTES OFFICE 48423 [facility]RE[facility]AN OUTPATIEN 0 0 [facility]ISIT 5 [facility] MINUTES OFFICE 36684 [facility] F[facility] OUTPATIEN 0 0 [facility] VISIT 5 [facility] MINUTES OFFICE 29238 [facility] FREEMAN OUTPATIEN 0 0 [facility] 15 MINUTES OFFICE 00433 [facility] FREEMAN OUTPATIEN 0 0 [facility] VISIT 5 [facility] MINUTES [facility] PETE - 0 0 [facility] OUTPATIEN INC T EMERGENCY 48797 PETE 0 0 [facility] DEPARTMEN INC T VISIT LOW/MODER SEVERITY EMERGENCY 34823 DYLAN BERGMAN 0 0 EMERGENCY III [facility] DEPARTREGENCY [facility] T VISIT MODERATE SEVERITY
--- OUTSIDE RECORDS SUMMARY | 2017-09-11 20:21 | External Medical Summary Rpt | CCD ---
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 [facility] OUTPATIEN INC T OFFICE 15904 [facility] QUIÑONES OUTPATIEN 6 6 PHYSICIAN SUSANA T VISIT S GROUP 15 MINUTES OFFICE 19243 [facility] QUIÑONES OUTPATIEN 6 6 PHYSICIAN SUSANA T VISIT S GROUP 15 MINUTES HOSPITAL PETE - 6 6 [facility] OUTPATIEN INC [facility] PETE - 6 6 [facility] OUTPATIEN INC T OFFICE 55501 [facility] QUIÑONES OUTPATIEN 6 6 PHYSICIAN SUSANA T VISIT S GROUP 15 MINUTES OFFICE 31111 [facility] QUIÑONES OUTPATIEN 6 6 PHYSICIAN SUSANA T VISIT S GROUP 15 MINUTES OFFICE 99269 [facility] 6 6 [facility] T VISIT DEPT DEPT 10 CHIDI MURILLO MINUTES OFFICE 09576 [facility] T VISIT DEPT DEPT 10 CHIDI MURILLO MINUTES OFFICE 37679 [facility] 6 6 [facility] T VISIT INTERNAL 15 MED MINUTES OFFICE 83838 [facility] QUIÑONES OUTPATIEN 6 6 PHYSICIAN SUSANA T VISIT S GROUP 15 MINUTES OFFICE 04932 [facility] T VISIT DEPT DEPT 10 CHIDI OBREGONO MINUTES OFFICE 58292 [facility] TER OUTPATIEN 6 6 PHYSICIAN T VISIT S GROUP 15 MINUTES HOSPITAL PETE - 6 6 [facility] OUTPATIEN INC T OFFICE 56566 [facility] TER OUTPATIEN 6 6 PHYSICIAN T VISIT S GROUP 15 MINUTES OFFICE 51779 [facility] QUIÑONES OUTPATIEN 6 6 PHYSICIAN SUSANA T VISIT S GROUP 15 MINUTES OFFICE 90373 [facility] T VISIT DEPT DEPT 10 CHIDI MURILLO MINUTES OFFICE 10088 [facility] QUIÑONES OUTPATIEN 5 5 PHYSICIAN SUSANA T VISIT S GROUP 15 MINUTES OFFICE 39348 [facility] T VISIT 5 DEPT DEPT MINUTES CHIDI MURILLO OFFICE 12425 [facility] T VISIT DEPT DEPT 10 CHIDI MURILLO MINUTES OFFICE 31945 [facility] 5 [facility] T VISIT DEPT DEPT 10 CHIDI MURILLO MINUTES EMERGENCY 10420 [facility] 5 5 [facility] DEPARTMEN EMERGENCY T VISIT PHYS HIGH/URGE NT [facility] [place] - 5 5 N OUTPATIEN COMMUNTIY T HOSPITA OFFICE 81584 [facility] T VISIT DEPT DEPT 10 CHIDI MURILLO MINUTES OFFICE 29919 [facility] 5 5 [facility] T VISIT DEPT DEPT 10 CHIDI MURILLO MINUTES OFFICE 86274 MARIMARCASSY JARRELL, OUTPATIEN 5 5 [employer] LEANNE T NEW 30 MINUTES OFFICE 13060 [facility] T VISIT 5 DEPT DEPT MINUTES CHIDI MURILLO OFFICE 55006 [facility] QUIÑONES OUTPATIEN 5 5 PHYSICIAN SUSANA T VISIT S GROUP 15 MINUTES OFFICE 88588 [facility] HABASH OUTPATIEN 5 5 KEF KEF T NEW 45 MINUTES HOSPITAL PETE - 5 5 [facility] OUTPATIEN [facility] PETE - 5 5 [facility] OUTPATIEN INC T OFFICE 25259 [facility] QUIÑONES OUTPATIEN 5 5 PHYSICIAN SUSANA T NEW 45 S GROUP MINUTES OFFICE 67016 [facility] T VISIT DEPT DEPT 10 CHIDI MURILLO MINUTES OFFICE 50403 [facility] T VISIT DEPT DEPT 10 CHIDI MURILLO MINUTES OFFICE 90512 [facility] OUTPATIEN 5 5 [facility] 10 MINUTES OFFICE 82340 [facility] T VISIT DEPT DEPT 10 CHIDI MURILLO MINUTES OFFICE 40013 [facility] T VISIT DEPT DEPT 10 CHIDI MURILLO MINUTES OFFICE 20661 [facility] 5 [facility] T VISIT DEPT DEPT 10 CHIDI MURILLO MINUTES EMERGENCY 16361 ALEXANDRA DALEY 5 5 PHYSICIAN [place] MODI S, [facility] T VISIT MODERATE SEVERITY EMERGENCY 01558 PETE 5 5 [facility] DEPARTMEN INC T VISIT LOW/MODER SEVERITY HOSPITAL PETE - 5 5 [facility] OUTPATIEN INC T OFFICE 75286 [facility] T VISIT DEPT DEPT 10 CHIDI MURILLO MINUTES OFFICE 62700 [facility] T VISIT DEPT DEPT 10 CHIDI MURILLO MINUTES OFFICE 72070 [facility] T VISIT DEPT DEPT 10 CHIDI MURILLO MINUTES HOSPITAL PETE - 5 5 [facility] OUTPATIEN INC T OFFICE 91544 [facility] T VISIT DEPT DEPT 10 CHIDI MURILLO MINUTES OFFICE 17275 [facility] T VISIT DEPT DEPT 10 CHIDI MURILLO MINUTES OFFICE 17111 [facility] 5 5 [facility] T VISIT INTERNAL 15 MED MINUTES OFFICE 76208 [facility] T VISIT DEPT DEPT 10 CHIDI MURILLO MINUTES OFFICE 92828 [facility] T VISIT DEPT DEPT 10 CHIDI MURILLO MINUTES OFFICE 09313 [facility] 5 5 [facility] T VISIT INTERNAL 25 MED MINUTES OFFICE 40970 [facility] ALFREDO OUTPATIEN 5 5 PHYSICIAN ZOË T VISIT S GROUP 10 MINUTES OFFICE 51679 [facility] FRYMAN OUTPATIEN 5 5 PHYSICIAN EUG T VISIT S GROUP 15 MINUTES OFFICE 20192 [facility] T VISIT DEPT DEPT 10 [employer] MINUTES OFFICE 66127 [facility] 5 5 [facility] T VISIT DEPT DEPT 10 [employer] MINUTES OFFICE 33863 [facility] 4 4 [facility] T VISIT DEPT DEPT 10 [employer] MINUTES OFFICE 67502 [facility] 4 4 [facility] T VISIT DEPT DEPT 10 [employer] MINUTES OFFICE 12714 [facility] 4 4 [facility] T VISIT INTERNAL MED MINUTES OFFICE 83072 [facility] 4 [facility] T VISIT DEPT DEPT 10 [employer] MINUTES OFFICE 34020 [facility] 4 4 [facility] T VISIT DEPT DEPT 10 [employer] MINUTES OFFICE 39752 [facility] 4 4 [facility] T VISIT DEPT DEPT 10 [employer] MINUTES OFFICE 11165 [facility] 4 4 [facility] T VISIT DEPT DEPT 10 [employer] MINUTES OFFICE 91936 [facility] ALISSA OUTPATIEN 4 4 PHYSICIAN SIDNEY T VISIT S GROUP 15 MINUTES OFFICE 04667 [facility] T VISIT DEPT DEPT 10 [facility] [employer] MINUTES OFFICE 18019 [facility] T VISIT DEPT DEPT 10 [facility] [employer] MINUTES OFFICE 02460 [facility] 4 [facility] T VISIT DEPT DEPT 10 [facility] [employer] MINUTES OFFICE 37907 [facility] 4 4 [facility] T VISIT DEPT DEPT 10 [facility] [employer] MINUTES OFFICE 30769 [facility] 4 4 [facility] T VISIT DEPT DEPT 10 [employer] MINUTES OFFICE 78642 [facility] 4 4 [facility] T VISIT DEPT DEPT 10 [employer] MINUTES OFFICE 16822 [facility] OUTPATIEN 4 4 PHYSICIAN T NEW 45 S GROUP [facility] PETE - 4 4 [facility] OUTPATIEN [facility] T OFFICE 65819 DINA DINA OUTPATIEN 4 4 MARIA ANTONIA MARIA ANTONIA T VISIT 15 MINUTES HOSPITAL PETE - 4 4 [facility] OUTPATIEN INC [facility] PETE - 4 4 [facility] OUTPATIEN [facility] T OFFICE 61180 DINA DINA OUTPATIEN 4 4 MARIA ANTONIA MARIA ANTONIA T VISIT 15 MINUTES EMERGENCY 15988 [facility]OME[facility]ANON 4 4 [facility] T VISIT MODERATE SEVERITY EMERGENCY 39561 DOROTEO SADLER 4 4 [facility] T VISIT HIGH/URGE NT SEVERITY HOSPITAL NENAON - 4 4 [facility] T OFFICE 54176 [facility] FREEM[facility] OUTPAT[facility]EN 3 3 [facility] V[facility] MINUT[facility] HEAL HEAL PERIODIC 30422 [facility] FREEMAN PREVENTIV 3 3 [facility] CENTER PATIENT 12-17YRS OFFICE 44559 [facility] FREEMAN OUTPATIEN 3 3 [facility] CENTER 15 MINUTES EMERGENCY 82067 [facility]E 3 3 [facility] DEPARTMEN INC T VISIT LOW/MODER SEVERITY [facility]OSPITAL [facility]E - 3 3 [facility] OUTPATIEN INC T EMERGENCY 25890 DYLAN ANNA 3 3 EMERGENCY DEPARTMEN SERVICES T VISIT HIGH/URGE NT SEVERITY EMERGENCY 48523 ALISSA ALISSA 3 3 S[facility]NEY SIDNEY DEPARTMEN T VISIT MODERATE SEVERITY [facility]OSP[facility]E - 3 3 [facility] OUTPATIEN INC T OFFICE 48696 PETE PETE OUTPATIEN 2 2 [facility] 10 MINUTES OFFICE 08235 [facility] T NEW 10 FOR MINUTES CHILD [facility] - [facility] 2 [facility] OUTPATIEN FOR T CHILD OFFICE 09098 [place] OUTPATIEN 2 2 MEDICAL T NEW 30 SERV MINUTES FOUNDATIO OFFICE 32846 PETE PETE OUTPATIEN 2 2 [facility] 10 MINUTES OFFICE 72329 [facility] FRE[facility]AN OUTPATIEN 1 1 [facility] 10 MINUTES OFFICE 50379 [facility] FREEMAN OUTPATIEN 1 1 [facility] 10 MINUTES OFFICE 68253 [facility] FREEMAN OUTPATIEN 1 1 [facility] 10 MINUTES OFFICE 10056 [facility] FREEMAN OUTPATIEN 1 1 [facility] VISIT 5 [facility] MINUTES OFFICE 47783 Caro Elizondo OUTPATIEN 1 1 LEISA [facility] T VISIT PSC 15 MINUTES OFFICE 95169 PETE PETE OUTPATIEN 1 1 [facility] 10 MINUTES OFFICE 27480 [facility] FREEMAN OUTPATIEN 1 1 [facility] 10 MINUTES OFFICE 15314 PETE PETE OUTPATIEN 1 1 [facility] 10 MINUTES OFFICE 35287 [place] D[facility] OUTPATIEN 1 1 [facility] T NEW 20 INTERNAL MINUTES [facility] PETE - 1 1 [facility] OUTPATIEN INC T OFFICE 19317 PETE FREEMAN OUTPATIEN 1 1 [facility] 10 MINUTES OFFICE 12848 [facility] FREEMAN OUTPATIEN 1 1 [facility] 10 MINUTES OFFICE 53509 [facility]RE[facility] OUTPATIEN 1 1 [facility] 10 MINUTES EMERGENCY 18624 DYLAN MAXWELL 1 1 EMERGENCY [facility]NEY DEPARTMEN SERVICES T VISIT HIGH/URGE NT [facility] H[facility]PITAL PETE - 1 1 [facility] OUTPATIEN INC T EMERGENCY 38916 [facility]E 1 1 [facility] DEPARTMEN INC T VISIT MODERATE SEVERITY OFFICE 08573 PETE FREEMAN OUTDEMETRIAEN 1 1 [facility] 10 MINUTES OFFICE 49621 [facility] FRE[facility]AN OUTPATIEN 1 1 [facility] 10 MINUTES OFFICE 08320 [facility] FREEMAN OUTPATIEN 1 1 [facility] 15 MINUTES OFFICE 13090 [facility] FREEMAN OUTPATIEN 1 1 [facility] 10 MINUTES OFFICE 75070 [facility]E FREEMAN OUTPATIEN 0 0 [facility] 10 MINUTES OFFICE 71424 PETE FREEMAN OUTPATIEN 0 0 [facility] T VISIT 5 [facility] MINUTES OFFICE 66515 PETE FREEMAN OUTPATIEN 0 0 [facility] T VISIT 5 [facility] MINUTES OFFICE 89748 PETE FREMEAN OUTPATIEN 0 0 [facility] T VISIT 5 [facility] MINUTES OFFICE 45382 PETE FREEMAN OUTPATIEN 0 0 [facility] T VISIT 5 [facility] MINUTES OFFICE 21876 PETE FREEMAN OUTPATIEN 0 0 [facility] 15 MINUTES OFFICE 97500 [facility]E FREEMAN OUTPATIEN 0 0 [facility] T VISIT 5 [facility] MINUTES EMERGENCY 91926 [facility]E 0 0 [facility] DEPARTMEN INC T VISIT LOW/MODER SEVERITY EMERGENCY 83931 DYLAN BERGMAN 0 0 EMERGENCY III EMILY DEPARTMEN SERVICES T VISIT MODERATE SEVERITY HOSPITAL PETE - 0 0 [facility] OUTPATIEN INC T
--- OUTSIDE RECORDS SUMMARY | 2017-09-11 20:21 | External Medical Summary Rpt | CCD ---
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 S GROUP 15 MINUTES OFFICE 47613 [facility] T VISIT 5 DEPT DEPT MINUTES CHIDI MURILLO OFFICE 42708 [facility] T VISIT DEPT DEPT 10 CHIDI MURILLO MINUTES OFFICE 81446 [facility] T VISIT DEPT DEPT 10 CHIDI MURILLO MINUTES EMERGENCY 49341 [facility] 5 5 [facility]CO DEPARTMEN EMERGENCY T VISIT PHYS HIGH/URGE NT [facility] [place] - 5 5 N OUTPATIEN COMMUNTIY T HOSPITA OFFICE 30444 [facility] T VISIT DEPT DEPT 10 CHIDI MURILLO MINUTES OFFICE 90770 [facility] 5 5 [facility] T VISIT DEPT DEPT 10 CHIDI MURILLO MINUTES OFFICE 65374 MARIMARCASSY JARRELL, OUTPATIEN 5 5 [employer] III LEANNE T NEW 30 MINUTES OFFICE 60870 [facility] 5 [facility] T VISIT 5 DEPT DEPT MINUTES CHIDI MURILLO OFFICE 31537 [facility] QUIÑONES OUTPATIEN 5 5 PHYSICIAN SUASNA T VISIT S GROUP 15 MINUTES OFFICE 59753 [facility] OUTPATIEN 5 5 KEF KEF T NEW 45 MINUTES HOSPITAL PETE - 5 5 [facility] OUTPATIEN [facility] PETE - 5 5 [facility] OUTPATIEN INC T OFFICE 17656 [facility] QUIÑONES OUTPATIEN 5 5 PHYSICIAN SUSANA T NEW 45 S GROUP MINUTES OFFICE 94874 [facility] T VISIT DEPT DEPT 10 CHIDI MURILLO MINUTES OFFICE 49789 [facility] T VISIT DEPT DEPT 10 CHIDI MURILLO MINUTES OFFICE [address] [facility] [address] [facility] [address] OUTPATIEN 5 5 [facility] 10 MINUTES OFFICE 48379 [facility] T VISIT DEPT DEPT 10 CHIDI MURILLO MINUTES OFFICE 59542 [facility] T VISIT DEPT DEPT 10 CHIDI MURILLO MINUTES OFFICE 74257 [facility] 5 5 [facility] T VISIT DEPT DEPT 10 CHIDI MURILLO MINUTES EMERGENCY 58475 ALEXANDRA DALEY 5 5 PHYSICIAN [place] MODI S, [facility] T VISIT MODERATE SEVERITY EMERGENCY 88499 [facility]E 5 5 [facility] DEPARTMEN INC T VISIT LOW/MODER SEVERITY HOSPITAL [facility]E - 5 5 [facility] OUTPATIEN INC T OFFICE 08859 [facility] T VISIT DEPT DEPT 10 CHIDI MURILLO MINUTES OFFICE 40943 [facility] T VISIT DEPT DEPT 10 CHIDI MURILLO MINUTES OFFICE 25793 [facility] T VISIT DEPT DEPT 10 CHIDI MURILLO MINUTES HOSPITAL PETE - 5 5 [facility] OUTPATIEN INC T OFFICE 61454 [facility] T VISIT DEPT DEPT 10 CHIDI MURILLO MINUTES OFFICE 62167 [facility] T VISIT DEPT DEPT 10 CHIDI MURILLO MINUTES OFFICE 52146 [facility] 5 5 [facility] T VISIT INTERNAL 15 MED MINUTES OFFICE 11619 [facility] T VISIT DEPT DEPT 10 CHIDI MURILLO MINUTES OFFICE 81208 [facility] T VISIT DEPT DEPT 10 CHIDI MURILLO MINUTES OFFICE 78311 [facility] OUT[facility] 5 5 [facility] T VISIT INTERNAL 25 MED MINUTES OFFICE 70216 [facility] ALFREDO OUTPATIEN 5 5 PHYSICIAN ZOË T VISIT S GROUP 10 MINUTES OFFICE 69263 [facility] FRYMAN OUTPATIEN 5 5 PHYSICIAN EUG T VISIT S GROUP 15 MINUTES OFFICE 14744 [facility] 5 5 [facility] T VISIT DEPT DEPT 10 fake company 2.0Marnie fake company 2.0Marnie MINUTES OFFICE 06589 [facility] 5 5 [facility] T VISIT DEPT DEPT 10 fake company 2.0Marnie [employer] Card To Get Approved For MINUTES OFFICE 95676 [facility] 4 4 [facility] T VISIT DEPT DEPT 10 fake company 2.0Marnie [employer] Card To Get Approved For MINUTES OFFICE 82526 [facility] T VISIT DEPT DEPT 10 [employer] 2.0Marnie [employer] Card To Get Approved For MINUTES OFFICE 71133 [facility] OUT[facility]IEN 4 4 [facility] T VISIT INTERNAL MED MINUTES OFFICE 85348 [facility] 4 4 [facility] T VISIT DEPT DEPT 10 [employer] 2.0Marnie [employer] Credit Card To Get Approved For MINUTES OFFICE 68122 [facility] 4 [facility] T VISIT DEPT DEPT 10 fake company 2.0Marnie [employer] Credit Card To Get Approved For MINUTES OFFICE 04661 [facility] 4 4 [facility] T VISIT DEPT DEPT 10 fake company 2.0Marnie [employer] Credit Card To Get Approved For MINUTES OFFICE 33646 [facility] 4 4 [facility] T VISIT DEPT DEPT 10 fake company 2.0Marnie [employer] Card To Get Approved For MINUTES OFFICE 00041 [facility] ALISSA OUTPATIEN 4 4 PHYSICIAN SIDNEY T VISIT S GROUP 15 MINUTES OFFICE 00886 [facility] 4 4 [facility] T VISIT DEPT DEPT 10 CHIDI [employer] 2.0Marnie MINUTES OFFICE 97595 [facility] 4 4 [facility] T VISIT DEPT DEPT 10 CHIDI [employer] 2.0Marnie MINUTES OFFICE 96133 [facility] 4 4 [facility] T VISIT DEPT DEPT 10 [facility]I [employer] 2.0Marnie MINUTES OFFICE 29193 [facility] 4 4 [facility] T VISIT DEPT DEPT 10 [facility] [employer] Credit Card To Get Approved For MINUTES OFFICE 79032 [facility] 4 [facility] T VISIT DEPT DEPT 10 fake company 2.0Marnie [employer] Credit Card To Get Approved For MINUTES OFFICE 91809 [facility] 4 4 [facility] T VISIT DEPT DEPT 10 fake company 2.0Marnie [employer] Credit Card To Get Approved For MINUTES OFFICE 91746 [facility] OUTPATIEN 4 4 PHYSICIAN T NEW 45 S GROUP [facility] PETE - [address] [facility] T OFFICE 55065 DINA DINA OUTPATIEN 4 4 MARIA ANTONIA MARIA ANTONIA T VISIT 15 MINUTES HOSPITAL [facility] - 4 4 [facility] - [address] [facility] T OFFICE 19946 DINA DINA OUTPATIEN 4 4 MARIA ANTONIA MARIA ANTONIA T VISIT 15 MINUTES EMERGENCY 11070 BOMEAGANON 4 4 [facility] T VISIT MODERATE SEVERITY EMERGENCY 94689 DOROTEO SADLER 4 4 [facility] T VISIT HIGH/URGE NT SEVERITY HOSPITAL NENAON - 4 4 [facility] T OFFICE 47495 PETE FREEMAN OUTPATIEN 3 3 [facility] VIS[facility] 5 [facility] MINUTES HEAL HEAL PERIODIC 85628 PETE FREEMAN PREVENTIV 3 3 [facility] CENTER PATIENT 12-17YRS OFFICE 09330 PETE FREEMAN OUTPATIEN 3 3 [facility] C[facility] CENTER 15 MINUTES EMERGENCY 61021 [facility]E 3 3 [facility] DEPARTMEN INC T VISIT LOW/MODER SEVERITY HOSPITAL [facility]E - 3 3 [facility] OUTPATIEN INC T EMERGENCY 61457 DYLAN ANNA 3 3 EMERGENCY DEPARTMEN SERVICES T VISIT HIGH/URGE NT SEVERITY EMERGENCY 41104 ALISSA ALISSA 3 3 S[facility]NEY SIDNEY DEPARTMEN T VISIT MODERATE SEVERITY [facility] - 3 3 [facility] OUTPATIEN INC T OFFICE 01940 PETE [facility]E OUTPATIEN 2 2 [facility] 10 MINUTES OFFICE 52008 [facility] 2 [facility] T NEW 10 FOR MINUTES CHILD [facility] - 2 2 [facility] OUTPATIEN FOR T CHILD OFFICE 64891 [place] OUTPATIEN 2 2 MEDICAL T NEW 30 SERV MINUTES FOUNDATIO OFFICE 26660 PETE PETE OUTPATIEN 2 2 [facility] 10 MINUTES OFFICE 99856 PETE FREEMAN OUTPATIEN 1 1 [facility] 10 MINUTES OFFICE 28543 PETE FREEMAN OUTPATIEN 1 1 [facility] 10 MINUTES OFFICE 50001 [facility]E FREEMAN OUTPATIEN 1 1 [facility] 10 MINUTES OFFICE 84205 PET[facility] FREEMAN OUTPATIEN 1 1 [facility] VISIT 5 [facility] MINUTES OFFICE 88422 [facility] Elizondo OUTPATIEN 1 1 LEISA [facility] T VISIT PSC 15 MINUTES OFFICE 81703 PETE PETE OUTPATIEN 1 1 [facility] 10 MINUTES OFFICE 87089 PETE FREEMAN OUTPATIEN 1 1 [facility] 10 MINUTES OFFICE 64311 PETE PETE OUTPATIEN 1 1 [facility] 10 MINUTES OFFICE 84545 [place] DINA OUTPATIEN 1 1 [facility] [place] T NEW 20 INTERNAL MINUTES [facility] PETE - 1 1 [facility] OUTPATIEN INC T OFFICE 91223 PETE FREEMAN OUTPATIEN 1 1 [facility] 10 MINUTES OFFICE 61099 PETE FREEMAN OUTPATIEN 1 1 [facility] 10 MINUTES OFFICE 99150 PETE FREEMAN OUTPATIEN 1 1 [facility] 10 MINUTES EMERGENCY 07049 DYLAN MAXWELL 1 1 EMERGENCY [facility]NEY DEPARTMEN SERVICES T VISIT HIGH/URGE NT [facility] PETE - 1 1 [facility] OUTPATIEN INC T EMERGENCY 03887 PETE 1 1 [facility] DEPARTMEN INC T VISIT MODERATE SEVERITY OFFICE 28966 PETE FREEMAN OUTDEMETRIAEN 1 1 [facility] 10 MINUTES OFFICE 93487 PETE FREEMAN OUTPATIEN 1 1 [facility] 10 MINUTES OFFICE 78342 PETE FREEMAN OUTPATIEN 1 1 [facility] 15 MINUTES OFFICE 28569 PETE FREEMAN OUTPATIEN 1 1 [facility] 10 MINUTES OFFICE 55339 PETE FREEMAN OUTPATIEN 0 0 [facility] 10 MINUTES OFFICE 53327 PETE FREEMAN OUTPATIEN 0 0 [facility] T VISIT 5 [facility] MINUTES OFFICE 94495 PETE FREEMAN OUTPATIEN 0 0 [facility] T VISIT 5 [facility] MINUTES OFFICE 15716 PETE FREEMAN OUTPATIEN 0 0 [facility] T VISIT 5 [facility] MINUTES OFFICE 01963 PETE FREEMAN OUTPATIEN 0 0 [facility] T VISIT 5 [facility] MINUTES OFFICE 44034 PETE FREEMAN OUTPATIEN 0 0 [facility] 15 MINUTES OFFICE 08768 PETE FREEMAN OUTPATIEN 0 0 [facility] VISIT 5 [facility] MINUTES EMERGENCY 86598 [facility] 0 0 [facility] DEPARTMEN INC T VISIT LOW/MODER SEVERITY EMERGENCY 74310 DYLAN BERGMAN 0 0 EMERGENCY III EMILY DEPARTMEN SERVICES T VISIT MODERATE SEVERITY [facility]OSPITAL [facility] - 0 0 [facility] OUTPATIEN INC T
--- OUTSIDE RECORDS SUMMARY | 2017-09-11 20:22 | External Medical Summary Rpt | CCD ---
Demographics Preferred Language Danish Marital Status Unknown Worship Affiliation Unknown Race Unknown Ethnic Group Unknown Author Author , SHAHRAM OMALLEY Address Unknown Phone Immunization No patient found.
--- OUTSIDE RECORDS SUMMARY | 2017-09-11 20:22 | External Medical Summary Rpt ---
Author Author SHAHRAM Dolores, [employer] Organization [employer] Address Unknown Phone Unavailable Results Streptococcus pyogenes Ag [Presence] in Unspecified specimen Observa Value Referen Units Interpr Notes Date tion ce etation Range Strepto NOT NOTDETE No No LOT # Sep 16 coccus DETECTE CTED informa informa N/A EXP 2017 pyogene D tion in tion in DATE 5:38 PM s Ag source source N/A [Presen data data ce] in Unspeci fied specime n CBC W Auto Differential panel in Blood Observa Value Referen Units Interpr Notes Date tion ce etation Range Basophils 0 - 0.2 K/MM3 Normal No Sep 9 informati 2016 9:30 [#/volume on in PM ] in source Blood by data Automated count Basophils 0.1 - 2.0 % Normal No Sep 9 /100 informati 2017 9:30 leukocyte on in PM s in source Blood by data Automated count Eosinophi 0.0 - 0.4 K/mm3 Normal No Sep 9 ls informati 2017 9:30 [#/volume on in PM ] in source Blood by data Automated count Eosinophi 0.1 - % Normal No Sep 9 ls/100 12.0 informati 2016 9:30 leukocyte on in PM s in source Blood by data Automated count Granulocy 1.8 - 7.8 K/mm3 Normal No Sep 9 andrei informati 2016 9:30 [#/volume on in PM ] in source Blood by data Automated count Granulocy 37.0 - % Normal No Sep 9 andrei/100 80.0 informati 2016 9:30 leukocyte on in PM s in source Blood by data Automated count Hematocri 37.0 - % Normal No Sep 9 t [Volume 47.0 informati 2016 9:30 on in PM Fraction] source of Blood data Hemoglobi 12.2 - g/dL Normal No Sep 9 n 16.2 informati 2016 9:30 [Mass/vol on in PM ume] in source Blood data Lymphocyt 0.7 - 4.5 K/mm3 Normal No Sep 9 es informati 2017 9:30 [#/volume on in PM ] in source Unspecifi data ed specimen by Automated count Lymphocyt 10 - 50.0 % Normal No Sep 9 es informati 2017 9:30 [#/volume on in PM ] in source Unspecifi data ed specimen by Automated count Erythrocy 27 - 31.2 pg Normal No Sep 9 te mean informati 2017 9:30 corpuscul on in PM ar source hemoglobi data n [Entitic mass] Erythrocy 31.8 - g/dl Normal No Sep 9 te mean 35.4 informati 2017 9:30 corpuscul on in PM ar source hemoglobi data n concentra tion [Mass/vol ume] by Automated count Erythrocy 82.2 - fl Normal No Sep 9 te mean 97.8 informati 2016 9:30 corpuscul on in PM ar volume source [Entitic data volume] by Automated count Monocytes 0.1 - 1.0 K/mm3 Normal No Sep 9 informati 2016 9:30 [#/volume on in PM ] in source Blood by data Automated count Monocytes 1.7 - 9.3 % Normal No Sep 9 /100 informati 2017 9:30 leukocyte on in PM s in source Blood by data Automated count Platelet 7.4 - fl Normal No Sep 9 mean 10.4 informati 2017 9:30 volume on in PM [Entitic source volume] data in Blood by Automated count Platelets 142 - 424 K/mm3 Normal No Sep 9 informati 2017 9:30 [#/volume on in PM ] in source Blood data Erythrocy 4.2 - 5.4 M/mm3 Normal No Sep 9 andrei informati 2016 9:30 [#/volume on in PM ] in source Amniotic data fluid Erythrocy 11.5 - % Normal No Sep 9 te 17.5 informati 2017 9:30 distribut on in PM ion width source [Entitic data volume] by Automated count Leukocyte 4.5 - K/MM3 Normal No Sep 9 s 13.0 informati 2016 9:30 [#/volume on in PM ] in source Blood data Choriogonadotropin.beta subunit [Units] in 24 hour Urine Observa Value Referen Units Interpr Notes Date tion ce etation Range Choriogon NEG No No No Sep 9 adotropin informati informati informati 2016 9:25 .beta on in on in on in PM subunit source source source [Units] data data data in 24 hour Urine CBC W Auto Differential panel in Blood Observa Value Referen Units Interpr Notes Date tion ce etation Range Basophils 0 - 0.2 K/MM3 Normal No Sep 5 2016 [#/volume on in 12:46 PM ] in source Blood by data Automated count Basophils 0.1 - 2.0 % Normal No Sep 5 /100 inform2016 leukocyte on in 12:46 PM s in source Blood by data Automated count Eosinophi 0.0 - 0.4 K/mm3 Normal No Sep 5 ls 2016 [#/volume on in 12:46 PM ] in source Blood by data Automated count Eosinophi 0.1 - % Normal No Sep 5 ls/100 12.0 inform2016 leukocyte on in 12:46 PM s in source Blood by data Automated count Granulocy 1.8 - 7.8 K/mm3 Normal No Sep 5 andrei 2016 [#/volume on in 12:46 PM ] in source Blood by data Automated count Granulocy 37.0 - % Normal No Sep 5 andrei/100 80.0 inform2016 leukocyte on in 12:46 PM s in source Blood by data Automated count Hematocri 37.0 - % Normal No Sep 5 t [Volume 47.0 inform2016 on in 12:46 PM Fraction] source of Blood data Hemoglobi 12.2 - g/dL Normal No Sep 5 n 16.2 inform2016 [Mass/vol on in 12:46 PM ume] in source Blood data Lymphocyt 0.7 - 4.5 K/mm3 Normal No Sep 5 es 2016 [#/volume on in 12:46 PM ] in source Unspecifi data ed specimen by Automated count Lymphocyt 10 - 50.0 % Normal No Sep 5 es inform2016 [#/volume on in 12:46 PM ] in source Unspecifi data ed specimen by Automated count Erythrocy 27 - 31.2 pg Normal No Sep 5 te mean inform2016 corpuscul on in 12:46 PM ar source hemoglobi data n [Entitic mass] Erythrocy 31.8 - g/dl Normal No Sep 5 te mean 35.4 inform2016 corpuscul on in 12:46 PM ar source hemoglobi data n concentra tion [Mass/vol ume] by Automated count Erythrocy 82.2 - fl Normal No Sep 5 te mean 97.8 2016 corpuscul on in 12:46 PM ar volume source [Entitic data volume] by Automated count Monocytes 0.1 - 1.0 K/mm3 Normal No Sep 5 inform2016 [#/volume on in 12:46 PM ] in source Blood by data Automated count Monocytes 1.7 - 9.3 % Normal No Sep 5 /100 inform2016 leukocyte on in 12:46 PM s in source Blood by data Automated count Platelet 7.4 - fl Low No Sep 5 mean 10.4 2016 volume on in 12:46 PM [Entitic source volume] data in Blood by Automated count Platelets 142 - 424 K/mm3 Normal No Sep 5 inform2016 [#/volume on in 12:46 PM ] in source Blood data Erythrocy 4.2 - 5.4 M/mm3 Normal No Sep 5 andrei inform2016 [#/volume on in 12:46 PM ] in source Amniotic data fluid Erythrocy 11.5 - % Normal No Jul 5 te 17.5 inform2016 distribut on in 12:46 PM ion width source [Entitic data volume] by Automated count Leukocyte 4.5 - K/MM3 Normal No Sep 5 s 13.0 2016 [#/volume on in 12:46 PM ] in source Blood data CBC W Auto Differential panel in Blood Observa Value Referen Units Interpr Notes Date tion ce etation Range Granulocy 1.8 - 7.8 K/mm3 Normal No Jun 13 andrei 2016 [#/volume on in 10:45 AM ] in source Blood by data Automated count Granulocy 37.0 - % Normal No Jun 13 andrei/100 80.0 2016 leukocyte on in 10:45 AM s in source Blood by data Automated count Hematocri 37.0 - % Normal No Jun 13 t [Volume 47.0 2016 on in 10:45 AM Fraction] source of Blood data Hemoglobi 12.2 - g/dL Normal No Jun 13 n 16.2 inform2016 [Mass/vol on in 10:45 AM ume] in source Blood data Lymphocyt 0.7 - 4.5 K/mm3 Normal No Jun 13 es inform2016 [#/volume on in 10:45 AM ] in source Unspecifi data ed specimen by Automated count Lymphocyt 10 - 50.0 % Normal No Jun 13 es 2016 [#/volume on in 10:45 AM ] in source Unspecifi data ed specimen by Automated count Erythrocy 27 - 31.2 pg Normal No Jun 13 te mean 2016 corpuscul on in 10:45 AM ar source hemoglobi data n [Entitic mass] Erythrocy 31.8 - g/dl Normal No Jun 13 te mean 35.4 2016 corpuscul on in 10:45 AM ar source hemoglobi data n concentra tion [Mass/vol ume] by Automated count Erythrocy 82.2 - fL Normal No Jun 13 te mean 97.8 2016 corpuscul on in 10:45 AM ar volume source [Entitic data volume] by Automated count Monocytes 0.1 - 1.0 K/mm3 Normal No Jun 132016 [#/volume on in 10:45 AM ] in source Blood by data Automated count Monocytes 1.7 - 9.3 % Normal No Jun 13 /2016 leukocyte on in 10:45 AM s in source Blood by data Automated count Platelets 142 - 424 K/mm3 Normal No Jun 132016 [#/volume on in 10:45 AM ] in source Blood data Erythrocy 4.2 - 5.4 M/mm3 Normal No Jun 13 andrei 2016 [#/volume on in 10:45 AM ] in source Amniotic data fluid Erythrocy 11.5 - % Normal No Jun 13 te 17.5 2016 distribut on in 10:45 AM ion width source [Entitic data volume] by Automated count Leukocyte 4.5 - K/mm3 Normal No Jun 13 s 13.0 2016 [#/volume on in 10:45 AM ] in source Blood data CBC W Auto Differential panel in Blood Observa Value Referen Units Interpr Notes Date tion ce etation Range Granulocy 1.8 - 7.8 K/mm3 Normal No Jun 13 andrei 2016 [#/volume on in 10:45 AM ] in source Blood by data Automated count Granulocy 37.0 - % Normal No Jun 13 andrei/100 80.0 2016 leukocyte on in 10:45 AM s in source Blood by data Automated count Hematocri 37.0 - % Normal No Jun 13 t [Volume 47.0 2016 on in 10:45 AM Fraction] source of Blood data Hemoglobi 12.2 - g/dL Normal No Jun 13 n 16.2 informati 2016 [Mass/vol on in 10:45 AM ume] in source Blood data Lymphocyt 0.7 - 4.5 K/mm3 Normal No Jun 13 es inform2016 [#/volume on in 10:45 AM ] in source Unspecifi data ed specimen by Automated count Lymphocyt 10 - 50.0 % Normal No Jun 13 es inform2016 [#/volume on in 10:45 AM ] in source Unspecifi data ed specimen by Automated count Erythrocy 27 - 31.2 pg Normal No Jun 13 te mean inform2016 corpuscul on in 10:45 AM ar source hemoglobi data n [Entitic mass] Erythrocy 31.8 - g/dl Normal No Jun 13 te mean 35.4 inform2016 corpuscul on in 10:45 AM ar source hemoglobi data n concentra tion [Mass/vol ume] by Automated count Erythrocy 82.2 - fL Normal No Jun 13 te mean 97.8 inform2016 corpuscul on in 10:45 AM ar volume source [Entitic data volume] by Automated count Monocytes 0.1 - 1.0 K/mm3 Normal No Jun 132016 [#/volume on in 10:45 AM ] in source Blood by data Automated count Monocytes 1.7 - 9.3 % Normal No Jun 13 /100 2016 leukocyte on in 10:45 AM s in source Blood by data Automated count Platelets 142 - 424 K/mm3 Normal No Jun 132016 [#/volume on in 10:45 AM ] in source Blood data Erythrocy 4.2 - 5.4 M/mm3 Normal No Jun 13 andrei inform2016 [#/volume on in 10:45 AM ] in source Amniotic data fluid Erythrocy 11.5 - % Normal No Jun 13 te 17.5 informati 2016 distribut on in 10:45 AM ion width source [Entitic data volume] by Automated count Leukocyte 4.5 - K/mm3 Normal No Jun 13 s 13.0 inform2016 [#/volume on in 10:45 AM ] in source Blood data CBC W Auto Differential panel in Blood Observa Value Referen Units Interpr Notes Date tion ce etation Range Granulocy 1.8 - 7.8 K/mm3 Normal No Jun 13 andrei inform2016 [#/volume on in 10:45 AM ] in source Blood by data Automated count Granulocy 37.0 - % Normal No Jun 13 andrei/100 80.0 informati 2016 leukocyte on in 10:45 AM s in source Blood by data Automated count Hematocri 37.0 - % Normal No Jun 13 t [Volume 47.0 informati 2016 on in 10:45 AM Fraction] source of Blood data Hemoglobi 12.2 - g/dL Normal No Jun 13 n 16.2 informati 2016 [Mass/vol on in 10:45 AM ume] in source Blood data Lymphocyt 0.7 - 4.5 K/mm3 Normal No Jun 13 es informati 2016 [#/volume on in 10:45 AM ] in source Unspecifi data ed specimen by Automated count Lymphocyt 10 - 50.0 % Normal No Jun 13 es informati 2016 [#/volume on in 10:45 AM ] in source Unspecifi data ed specimen by Automated count Erythrocy 27 - 31.2 pg Normal No Jun 13 te mean 2016 corpuscul on in 10:45 AM ar source hemoglobi data n [Entitic mass] Erythrocy 31.8 - g/dl Normal No Jun 13 te mean 35.4 informati 2016 corpuscul on in 10:45 AM ar source hemoglobi data n concentra tion [Mass/vol ume] by Automated count Erythrocy 82.2 - fL Normal No Jun 13 te mean 97.8 informati 2016 corpuscul on in 10:45 AM ar volume source [Entitic data volume] by Automated count Monocytes 0.1 - 1.0 K/mm3 Normal No Jun 132016 [#/volume on in 10:45 AM ] in source Blood by data Automated count Monocytes 1.7 - 9.3 % Normal No Jun 13 /100 informati 2017 leukocyte on in 10:45 AM s in source Blood by data Automated count Platelets 142 - 424 K/mm3 Normal No Jun 13 informati 2016 [#/volume on in 10:45 AM ] in source Blood data Erythrocy 4.2 - 5.4 M/mm3 Normal No Jun 13 andrei informati 2016 [#/volume on in 10:45 AM ] in source Amniotic data fluid Erythrocy 11.5 - % Normal No Jun 13 te 17.5 informati 2016 distribut on in 10:45 AM ion width source [Entitic data volume] by Automated count Leukocyte 4.5 - K/mm3 Normal No Jun 13 s 13.0 informati 2016 [#/volume on in 10:45 AM ] in source Blood data CHLAMYDIA AND GONORRHEA TESTING Observa Value Referen Units Interpr Notes Date tion ce etation Range COLLECT NA No No No No Jul 04 OR informa informa informa informa 2013 tion in tion in tion in tion in 1:55 PM source source source source data data data data ETHNICI WHITE, No No No No Jul 04 TY NON-HIS informa informa informa informa 2013 PANIC tion in tion in tion in tion in 1:55 PM source source source source data data data data KIT 2-28-14 No No No No Jul 04 EXPIRAT informa informa informa informa 2013 ION tion in tion in tion in tion in 1:55 PM DATE source source source source data data data data SYMPTOM NO No No No No Jul 04 S informa informa informa informa 2013 tion in tion in tion in tion in 1:55 PM source source source source data data data data REASON INITIAL No No No No Jul 04 FOR FAMILY informa informa informa informa 2013 REQUEST tion in tion in tion in tion in 1:55 PM PLANNIN source source source source G VISIT data data data data SPECIME URINE No No No No Jul 04 N informa informa informa informa 2013 SOURCE tion in tion in tion in tion in 1:55 PM source source source source data data data data PREGNAN NO No No No No Jul 04 T informa informa informa informa 2013 tion in tion in tion in tion in 1:55 PM source source source source data data data data CHART NA No No No No Jul 04 NUMBER informa informa informa informa 2013 tion in tion in tion in tion in 1:55 PM source source source source data data data data Chlamyd NEGATIV No No No NEGATIV Jul 04 ia E informa informa informa E 2013 trachom tion in tion in tion in RESULT= 1:55 PM atis source source source WITHIN rRNA data data data NORMAL [Presen ce] in LIMITSP Unspeci OSITIVE fied specime RESULT= n by Probe & ABNORMA target LEQUIVO LAMAR amplifi RESULT= cation method INDETER MINATEU NSATISF ACTORY RESULT= INVALID Neisser NEGATIV No No No NEGATIV Jul 04 ia E informa informa informa E 2013 gonorrh tion in tion in tion in RESULT= 1:55 PM oeae source source source WITHIN rRNA data data data NORMAL [Presen ce] in LIMITSP Unspeci OSITIVE fied specime RESULT= n by Probe & ABNORMA target LEQUIVO LAMAR amplifi RESULT= cation method INDETER MINATEU NSATISF ACTORY RESULT= INVALID THE APTIMA COMBO 2 ASSAY IS NOT INTENDE D FOR THE EVALUAT ION OF SUSPECT EDSEXUA L ABUSE OR FOR OTHER MEDICO- LEGAL INDICAT IONS. FOR THOSE PATIENT S FORWHOM A FALSE POSITIV E RESULT MAY HAVE ADVERSE PSYCHO- SOCIAL IMPACT, [facility] [place][NOTE 3]RECO MMENDS RETESTI NG.\.br \This report contain s patient informa tion that must be protect ed in accorda nce with the Health Insuran ce Portabi lity and Account ability Act. CHLAMYDIA AND GONORRHEA TESTING Observa Value Referen Units Interpr Notes Date tion ce etation Range COLLECT NA No No No No Jul 04 OR informa informa informa informa 2012 tion in tion in tion in tion in 1:55 PM source source source source data data data data ETHNICI WHITE, No No No No Jul 04 TY NON-HIS informa informa informa informa 2013 PANIC tion in tion in tion in tion in 1:55 PM source source source source data data data data KIT 2-28-14 No No No No Jul 04 EXPIRAT informa informa informa informa 2013 ION tion in tion in tion in tion in 1:55 PM DATE source source source source data data data data SYMPTOM NO No No No No Jul 04 S informa informa informa informa 2013 tion in tion in tion in tion in 1:55 PM source source source source data data data data REASON INITIAL No No No No Jul 04 FOR FAMILY informa informa informa informa 2013 REQUEST tion in tion in tion in tion in 1:55 PM PLANNIN source source source source G VISIT data data data data SPECIME URINE No No No No Jul 04 N informa informa informa informa 2013 SOURCE tion in tion in tion in tion in 1:55 PM source source source source data data data data PREGNAN NO No No No No Jul 04 T informa informa informa informa 2013 tion in tion in tion in tion in 1:55 PM source source source source data data data data CHART NA No No No No Jul 04 NUMBER informa informa informa informa 2013 tion in tion in tion in tion in 1:55 PM source source source source data data data data Chlamyd Pending No No No No Jul 04 ia informa informa informa informa 2013 trachom tion in tion in tion in tion in 1:55 PM atis source source source source rRNA data data data data [Presen ce] in Unspeci fied specime n by Probe & target amplifi cation method Neisser Pending No No No \.br\Jul 04 ia informa informa informa is 2013 gonorrh tion in tion in tion in report 1:55 PM oeae source source source contain rRNA data data data s [Presen patient ce] in Unspeci informa fied tion specime that n by must be Probe & target protect ed in amplifi accorda cation nce method with the Health Insuran ce Portabi lity and Account ability Act.
--- OUTSIDE RECORDS SUMMARY | 2017-09-11 20:22 | External Medical Summary Rpt | CCD ---
Demographics Preferred Language Maori Marital Status Unknown Restoration Affiliation Unknown Race Unknown Ethnic Group Unknown Author Author , SHAHRAM OMALLEY Address Unknown Phone Immunization No patient found.
--- OUTSIDE RECORDS SUMMARY | 2017-09-11 20:22 | External Medical Summary Rpt ---
[...] MAY HAVE ADVERSE PSYCHO- SOCIAL IMPACT, [facility] [place] MMENDS RETESTI NG.\.br \This report contain s [...]
--- NOTE | 2017-09-11 20:54 | Urgent Treatment Center Report ---
History of Present Issue Date/Time Seen by Provider 09/11/172019 Visit Reason Pt arrived:Walked Presenting Problem:PT C/O OF SORE THROAT, SINUS DRAINAGE, AND EARS BURNING. ALSO REQUESTING A URINE PREG Location if Accident: Onset of symptoms date/time:09/09/17 or onset unknown for: Have you (or family members/close friends) recently traveled outside the [place]? N If Yes, where/when: Have you had exposure to infectious disease within the past month? TB? Other? Specify: sore throat x 3-4 days w/ rhinorrhea, nasal congestion, PND, white patches initially that have since resolved and right ear pain intermittently. Called PCP Who suggested evaluation but just now able to get here. No known sick contacts. Denies fever, aches, chills, malaise. No treatment prior to arrival. requesting urine preg before prescribed antibiotics because "the bar" was removed last week. Spotting and headaches since. "just like how I felt with my last ". Source patient Exam Limitations no limitations ALLERGIES Coded Allergies: No Known Allergies (11/24/16) Home Medications Reported Medications No Known Home Medications History Medical History General CAD? No Angina: No [place]: No Hypertension? No Hyperlipidemia? No CHF? No DVT? No PE? No COPD? No Asthma? No Anemia? No GERD? No Gastric ulcers? No GI Bleed? No Hernia? No Thyroid Problems? No Hypothyroidism? No CVA? No Seizures? Yes Diabetes? No Insulin Dependent: No Insulin Pump: No Home FSBS? No Renal Insuffiency? No UTI? No Stones? No BPH? No GB Disease: No Nephritic Syndrome? No Asplenia? No Hepatitis? No Sickle Cell Disease? No Arthritis? No Migraines? No Cataracts? No Glaucoma? No MRSA? No HIV? No TB? No Anxiety? No Depression? No Cancer? No More? No Immunization HX DT/Tetanus 1-4 YRS Flu 2014-16FSN Pneumonia Refuses Surgical Hx Previous Surgery?Y CLUB FEET- BILATERAL Social History Smoking Hx Smoker: Current Every Day Smoker Tobacco: Yes Type Cigarettes Packs/day 1 1/2 - 2 Packs Alcohol Alcohol: No Review of Systems All Other Systems Reviewed and Negative Constitutional see HPI Eyes denies drainage ENT see HPI. denies: ear discharge, throat swelling. Respiratory cough ("minimal"), denies shortness of breath, denies stridor, denies wheezing Cardiovascular denies chest pain Gastrointestinal denies abdominal pain, denies nausea, denies vomiting Genitourinary denies: discharge, dysuria, frequency. Musculoskeletal denies joint pain Skin denies rash Psychiatric/Neurological see HPI, denies other (dizziness) Physical Exam Vital Signs Vital Signs Date Time Temp Pulse Resp B/P Pulse O2 O2 Flow FiO2 Ox Delivery Rate 09/11 2057 98.1 107 20 115/83 100 09/11 2019 98.1 107 20 115/83 100 General Appearance normal appearance, no apparent distress Ear, Nose, Throat nasal congestion (minimal w/ clear drainage), mild pharyngeal erythema, tonsils 1+, no exudate, keenan EACs and TMs normal Neck non-tender, supple Respiratory Status No: respiratory distress, productive cough, non productive cough. Lung Sounds anterior: lungs clear. posterior: lungs clear. bilateral: lungs clear. Cardiovascular regular rate/rhythm, no peripheral edema, no murmur Gastrointestinal normal bowel sounds, non tender, soft Neurologic alert, oriented x 3 Skin normal color, warm/dry Lymphatic no adenopathy Medical Decision Making LABS/Meds/Orders Pt receiving controlled substance in ED? No Results/Orders Laboratory Tests 09/11/172029: Group A Strep Screen NOT DETECTED 09/11/172012: Urine Test NEGATIVE Orders Procedure Date/time Status [facility] STREP SCREEN 09/11 2030 Complete [facility] URINE 09/11 2013 Complete Departure Departure Time of Disposition 2051 Disposition [place] Home or Self Care(routine) Clinical Impression Primary Impression: Acute pharyngitis Qualifiers: Pharyngitis/tonsillitis etiology: unspecified etiology Qualified Code: J02.9 - Acute pharyngitis, unspecified Secondary Impressions: Spotting Condition STABLE Referrals Dane Moe MD (Family) IMMEDIATELY for new or worsening symptoms OR no noticeable improvement over the next 48-72 hours. 911 for difficulty breathing or swallowing. Patient Instructions DI for Viral Pharyngitis Additional Instructions * No sign of bacterial infection. Likely viral. Virus can take 7-14 days to run their course * Monitor Temp. Follow up if fever develops * Encourage fluids, water, gatorade, powerade, pedialyte if infant/toddler/child * warm salt water gargles * warm fluids * sore throat lozenges * sleep elevated * humidifier/vaporizer * If you think there is the possibility of , repeat home test using first morning urine in 7 days. * * Your throat swab was sent for culture. Those results are typically sent to your primary care. Be sure to follow up in 2-3 days if no improvement so they can review those results and treat if necessary. If you don't have primary care, I recommend you get one but in the mean time, you will have to return to a walk in clinic. Discharge Counseling Counseled pt/family regarding diagnosis, test results, medications/RX, home care, follow up needs Prescriptions Current Visit Scripts No Known Home Medications at 8581
[2017-09-11 20:57] VITALS: BP 115/83
== END 2017-09-11 20:57 | disposition home or self-care (01) ==
LOC: UTC 20:08
DX: J02.9 Acute pharyngitis, unspecified (principal); F17.210 Nicotine dependence, cigarettes, uncomplicated

== ENCOUNTER 2017-10-02 20:34 | Emergency (ER) | payer MEDICAID ==
[~2017-10-02] VITALS: Ht 142.2 cm; Wt 81.6 kg
--- OUTSIDE RECORDS SUMMARY | 2017-10-02 20:41 | External Medical Summary Rpt | CCD ---
Author Author , SHAHRAM Organization SHAHRAM Address Unknown Phone [email or web address] Care Team Providers Care Hogshead Packer Name Role Phone Margarita Krishnamurthy MD, Unavailable Unavailable Margarita Bautista MD, Unavailable Unavailable Yenifer Bautista MD Purpose Continuity of Care Document - 04-04-2013 through 2016 Problems Code Diagnosis DOS Provider Status 034.0 034.0 STREP 05-14-2013 [place] SORE [facility] 692.9 692.9 04-05-2013 [facility] 780.4 780.4 04-05-2013 [facility] VERTIGO J45.909 UNSPECIFIED ASTHMA, UNCOMPLICAT ED K80.20 CALCULUS OF GALLBLADDER W/O CHOLECYSTIT IS W/O OBSTRUCTION 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] N39.0 URINARY TRACT INFECTION, SITE NOT SPECIFIED R07.9 CHEST PAIN, UNSPECIFIED R09.1 PLEURISY R10.9 UNSPECIFIED ABDOMINAL PAIN R51 HEADACHE T75.89XA OTHER SPECIFIED EFFECTS OF EXTERNAL CAUSES, INIT ENCNTR Allergies, Adverse Reactions, Alerts Type Allergy to [...] ve 0, 00 0 UN IT S MI 00 05 0 No ED 05 -1 NI 40 5- Lo SO 01 20 ng NE 82 13 er 0 20 Ac ti MG ve TA BL ET Vital Signs 05-14-2013 22:00 Name Value Interpretat [...] Order Detail nces retati t Range on Screening group A Streptococcus antigen (09-11-2017 20:30) Screeni NOT NOTDETE complet ng 017 [address]ED ed group A 20:30 D NOT DETECTE Strepto D L coccus antigen Comment: LOT # @[id number] EXP DATE @2019-07-25 Urine test by rapid immunoassa (09-11-2017 20:13) Urine NEGATIV NEG complet pregnan 017 E ed cy test 20:13 NEGATIV by E L rapid immunoa ssa Comment: YES STREP SCREEN (RAPID) (05-14-2013 21:18) STREP POSITIV complet SCREEN 013 E ed (RAPID) 21:18 COMPREHENSIVE METABOLIC PANEL (04-04-2013 23:48) Glucose 04-04- 89 74-106 complet 013 mg/dL ed Bld-mCn 23:48 c BUN 04-04- 13 7-18 complet Bld-mCn 013 mg/dL ed c 23:48 Creat 04-04-2 0.6 0.6-1.0 complet SerPl-m 013 mg/dL ed Cnc 23:48 ESTIMAT 04-04- 106 50-200 complet ED 013 ML/MIN ed CREATIN 23:48 INE CLEARAN CE Sodium 04-04- 138 136-145 complet SerPl-s 013 mmoL/L ed Cnc 23:48 Potassi 04-04-2 4.3 3.5-5.1 complet um 013 mmoL/L ed SerPl-s 23:48 Cnc Chlorid 04-04-2 104 98-107 complet e 013 mmoL/L ed SerPl-s 23:48 Cnc CO2 04-04-2 26 21.0-32 complet SerPl-s 013 mmoL/L .0 ed Cnc 23:48 Calcium -14-2 8.5 8.5-10. complet 013 mg/dL 1 ed SerPl-m 23:48 Cnc Prot -14-2 6.7 6.4-8.2 complet SerPl-m 013 gm/dL ed Cnc 23:48 Albumin -14-2 3.7 3.4-5.0 complet 013 gm/dL ed SerPl-m 23:48 Cnc Globuli 04-04-2 3.0 1.3-3.2 complet n 013 gm/dL ed Ser-mCn 23:48 c Albumin 04-04-2 1.2 UNK 1.1-1.8 complet /Glob 013 ed SerPl-m 23:48 Rto Bilirub 04-04-2 0.5 0.2-1.0 complet 013 mg/dL ed SerPl-m 23:48 Cnc AST 04-04-2 29 U/L 15-37 complet SerPl-c 013 ed Cnc 23:48 ALT 04-04-2 37 U/L 30-65 complet SerPl-c 013 ed Cnc 23:48 ALP 04-04-2 108 U/L 50-136 complet SerPl-c 013 ed Cnc 23:48 CBC with AUTO DIFF (04-04-2013 23:48) WBC # -14-2 10.8 4.5-13. complet Bld 013 K/MM3 5 ed Auto 23:48 RBC # -14-2 4.48 4.2-5.4 complet Bld 013 M/mm3 ed Auto 23:48 Hgb 14-2 13.4 12.2-16 complet Bld-mCn 013 g/dL .2 ed c 23:48 Hct Fr 04-04- 40.7 % 37.0-47 complet Bld 013 .0 ed 23:48 MCV RBC 04-04-2 90.9 fl 82.2-97 complet 013 .8 ed [...] O complet BACTERI 013 ed A 23:48 Encounters Encounter Start End Date Code Location Performer Type Date Emergency OTIS Krishnamurthy MD (ER) 3 21:22 3 22:08 [facility] Emergency OTIS Bautista MD (ER) 3 23:25 3 00:38 [facility]
--- OUTSIDE RECORDS SUMMARY | 2017-10-02 20:41 | External Medical Summary Rpt | CCD ---
Author Author Conduent Organization Conduent Address Unknown Phone Unavailable Purpose Continuity of Care Document - through 2016
--- OUTSIDE RECORDS SUMMARY | 2017-10-02 20:41 | External Medical Summary Rpt | CCD ---
Author Author , SHAHRAM Organization SHAHRAM Address Unknown Phone [email or web address] Care Team Providers Care Transportation Engineering Technician Name Role Phone Margarita Krishnamurthy MD, Unavailable Unavailable Margarita Bautista MD, Unavailable Unavailable Yenifer Bautista MD Purpose Continuity of Care Document - 04-04-2013 through 2016 Problems Code Diagnosis DOS Provider Status 034.0 034.0 STREP 05-14-2013 [place] SORE [facility] 692.9 692.9 04-05-2013 [facility] 780.4 780.4 04-05-2013 [facility] VERTIGO J45.909 UNSPECIFIED ASTHMA, UNCOMPLICAT ED [...] ve 0, 00 0 UN IT S VT 00 05 0 No ED 05 -1 [...] D L coccus antigen Comment: LOT # @[id number] EXP DATE @2019-07-25 Urine test by rapid [...] Krishnamurthy MD (ER) 3 21:22 3 22:08 [facility] Emergency OTIS Bautista MD (ER) 3 23:25 3 00:38 [facility]
--- OUTSIDE RECORDS SUMMARY | 2017-10-02 20:41 | External Medical Summary Rpt | CCD ---
Demographics Preferred Language Maori Marital Status Unknown Spiritism Affiliation Unknown Race Unknown Ethnic Group Unknown Author Author , SHAHRAM OMALLEY Address Unknown Phone Immunization No patient found.
--- OUTSIDE RECORDS SUMMARY | 2017-10-02 20:41 | External Medical Summary Rpt | CCD ---
Demographics Preferred Language Estonian Marital Status Unknown Confucianist Affiliation Unknown Race Unknown Ethnic Group Unknown Author Author , SHAHRAM OMALLEY Address Unknown Phone Immunization No patient found.
[2017-10-02] MEDS ORDERED: MEDROL 4MG. DOSE4 MG PO (20:59)
--- NOTE | 2017-10-02 20:59 | Urgent Treatment Center Report ---
History of Present Issue Date/Time Seen by Provider 10/02/172051 Visit Reason Pt arrived:Walked Presenting Problem:C/O RIDE SIDE NECK PAIN THAT RADIATES TO BACK AND LEFT SHOULDER Location if Accident: Onset of symptoms date/time:/ or onset unknown for:MEDICAL HX UNKNOWN Have you (or family members/close friends) recently traveled outside the [place]? N If Yes, where/when: Have you had exposure to infectious disease within the past month? TB? Other? Specify: Source patient, RN notes reviewed Exam Limitations no limitations Comment Patient presents with 5-6 day history of right sided neck and shoulder pain. No inciting injury. States pain starts in her neck, radiates to her right shoulder and down her right arm. Occasionally right arm feels numb and tingly. Sometimes pain radiates down the right side of her ribs, and sometimes into her left shoulder. Nothing seems to make the pain better or worse. She has no history of neck injury. Does take care of her daughter, who weighs 19 pounds. ALLERGIES Coded Allergies: No Known Allergies (11/24/16) History Medical History General CAD? No Angina: No MN: No Hypertension? No Hyperlipidemia? No CHF? No DVT? No PE? No COPD? No Asthma? No Anemia? No GERD? No Gastric ulcers? No GI Bleed? No Hernia? No Thyroid Problems? No Hypothyroidism? No CVA? No Seizures? Yes Diabetes? No Insulin Dependent: No Insulin Pump: No Home FSBS? No Renal Insuffiency? No UTI? No Stones? No BPH? No GB Disease: No Nephritic Syndrome? No Asplenia? No Hepatitis? No Sickle Cell Disease? No Arthritis? No Migraines? No Cataracts? No Glaucoma? No MRSA? No HIV? No TB? No Anxiety? No Depression? No Cancer? No More? No Immunization HX DT/Tetanus 1-4 YRS Flu 2014-16FSN Pneumonia Refuses Surgical Hx Previous Surgery?Y CLUB FEET- BILATERAL Social History Smoking Hx Smoker: Current Every Day Smoker Tobacco: Yes Type Cigarettes Packs/day 1 1/2 - 2 Packs Alcohol Alcohol: No Review of Systems All Other Systems Reviewed and Negative Musculoskeletal see HPI, neck pain Psychiatric/Neurological paresthesia Physical Exam Vital Signs Vital Signs Date Time Temp Pulse Resp B/P Pulse O2 O2 Flow FiO2 Ox Delivery Rate 10/02 2048 99.5 111 20 144/81 98 General Appearance normal appearance, no apparent distress Eye Exam - bilateral eye normal exam, bilateral eye PERRL, bilateral eye EOMI Ear, Nose, Throat hearing grossly normal, normal ENT inspection Neck normal inspection, non-tender Respiratory Status No: respiratory distress, trachea midline, chest symmetrical. Lung Sounds bilateral: normal breath sounds, lungs clear. Cardiovascular normal exam, regular rate/rhythm, no peripheral edema, no gallop, no JVD, no murmur, no rub Peripheral Pulses Pulses normal Yes Back cervical spine tenderness C6/C7 Extremities non-tender, normal range of motion, normal inspection, normal capillary refill, painful palpation of right suprascapular notch with reproduction of symptoms Strength 5 Upper Ext (L), 5 Upper Ext (R) Neurologic alert, normal exam, oriented x 3 Mental status normal mood/affect Medical Decision Making LABS/Meds/Orders Pt receiving controlled substance in ED? No Results/Orders Orders Procedure Date/time Status [facility] URINE 10/02 2057 Active Departure Departure Time of Disposition 2056 Disposition DC Home or Self Care(routine) Clinical Impression Primary Impression: Suprascapular entrapment neuropathy of right side Secondary Impressions: Cervical nerve root impingement Condition STABLE Referrals Dane Moe MD (Family): 2 Days-Call Office Patient Instructions DI for Neck Pain Additional Instructions Motrin, ice, follow up if not improving Discharge Counseling Counseled pt/family regarding diagnosis, medications/RX, home care, follow up needs Prescriptions Current Visit Scripts Methylprednisolone (Medrol Dose Smooth) 4 MG PO UD #1 SMOOTH TAKE DIRECTED ON PACKAGING at 2101
[2017-10-02 21:04] VITALS: BP 144/81
== END 2017-10-02 21:05 | disposition home or self-care (01) ==
LOC: UTC 20:34
DX: M75.42 Impingement syndrome of left shoulder (principal); R56.9 Unspecified convulsions; F17.210 Nicotine dependence, cigarettes, uncomplicated

== ENCOUNTER 2017-10-04 19:25 | Emergency (ER) | payer MEDICAID ==
[~2017-10-04] VITALS: Ht 142.2 cm; Wt 68.0 kg
[~2017-10-04 19:25] MED LIST changes: +MEDROL 4MG. DOSE4 MG PO
[2017-10-04] MEDS ORDERED: PRENATAL PLUS1 TA1 PO (19:37)
--- OUTSIDE RECORDS SUMMARY | 2017-10-04 19:55 | External Medical Summary Rpt | CCD ---
Demographics Preferred Language Bengali Marital Status Unknown Christianity Affiliation Unknown Race Unknown Ethnic Group Unknown Author Author , SHAHRMA OMALLEY Address Unknown Phone Immunization No patient found.
--- OUTSIDE RECORDS SUMMARY | 2017-10-04 19:55 | External Medical Summary Rpt | CCD ---
Demographics Preferred Language Hebrew Marital Status Unknown Orthodoxy Affiliation Unknown Race Unknown Ethnic Group Unknown Author Author , SHAHRAM OMALLEY Address Unknown Phone Immunization No patient found.
--- OUTSIDE RECORDS SUMMARY | 2017-10-04 19:55 | External Medical Summary Rpt | CCD ---
Author Author , SHAHRAM Organization SHAHRAM Address Unknown Phone Care Team Providers Care Entry Level Automotive Technician Name Role Phone Margarita Krishnamurthy MD, Unavailable Unavailable Margarita Bautista MD, Unavailable Unavailable Yenifer Bautista MD Purpose Continuity of Care Document - 04-04-2013 through 2016 Problems Code Diagnosis DOS Provider Status 034.0 034.0 STREP 05-14-2013 [place] SORE [facility] 692.9 692.9 04-05-2013 [place] DERMATITIS [facility] 780.4 780.4 04-05-2013 [facility] VERTIGO J45.909 UNSPECIFIED ASTHMA, UNCOMPLICAT ED [...] ve 0, 00 0 UN IT S NC 00 05 0 No ED 05 -1 [...] D L coccus antigen Comment: LOT # @[id number] EXP DATE @2019-07-25 Streptococcus pyogenes Ag [Presence] in Unspecified specimen (09-11-2017 20:30) Strepto NOT NOTDETE complet coccus [address] ed pyogene 20:30 D s Ag [Presen ce] in Unspeci fied specime n Urine test by rapid immunoassa (09-11-2017 20:13) Urine --2 NEGATIV NEG complet pregnan 017 E ed cy test 20:13 NEGATIV by E L rapid immunoa ssa Comment: YES Urine test by rapid immunoassa (09-11-2017 20:13) Urine 10--2 NEGATIV NEG complet pregnan 017 E ed cy test 20:13 by rapid immunoa ssa Streptococcus pyogenes Ag [Presence] in Unspecified specimen [...] SerPl-s 013 mmoL/L ed Cnc 23:48 Potassi 14-2 4.3 3.5-5.1 complet um 013 mmoL/L ed [...] 013 mg/dL ed SerPl-m 23:48 Cnc AST 14-2 29 U/L 15-37 complet SerPl-c 013 ed Cnc 23:48 ALT -14-2 37 U/L 30-65 complet SerPl-c 013 ed Cnc 23:48 ALP 14-2 108 U/L 50-136 complet SerPl-c 013 ed Cnc 23:48 CBC with AUTO DIFF (04-04-2013 23:48) WBC # 05-14-2 10.8 4.5-13. complet Bld 013 K/MM3 5 ed Auto 23:48 RBC # 05-14-2 4.48 4.2-5.4 complet Bld 013 M/mm3 ed Auto 23:48 Hgb -14-2 13.4 12.2-16 complet Bld-mCn 013 g/dL .2 ed c 23:48 Hct Fr 04-04-2 40.7 % 37.0-47 complet Bld 013 .0 [...] MD (ER) 3 21:22 3 22:08 [facility] Emergency OTIS Bautista MD (ER) 3 23:25 3 00:38 [facility]
--- OUTSIDE RECORDS SUMMARY | 2017-10-04 19:55 | External Medical Summary Rpt | CCD ---
Author Author , SHAHRAM Organization SHAHRAM Address Unknown Phone Care Team Providers Care Bleaching Supervisor Name Role Phone Margarita Krishnamurthy MD, Unavailable Unavailable Margarita Bautista MD, Unavailable Unavailable Yenifer Bautista MD Purpose Continuity of Care Document - 04-04-2013 through 2016 Problems Code Diagnosis DOS Provider Status 034.0 034.0 STREP 05-14-2013 [place] SORE [facility] 692.9 692.9 04-05-2013 [place] DERMATITIS [facility] 780.4 780.4 04-05-2013 [facility] VERTIGO J45.909 UNSPECIFIED ASTHMA, UNCOMPLICAT ED K80.20 [...] ve 0, 00 0 UN IT S ND 00 05 0 No ED 05 -1 [...] D L coccus antigen Comment: LOT # @[id number] EXP DATE @2019-07-25 Streptococcus pyogenes Ag [Presence] [...] Krishnamurthy MD (ER) 3 21:22 3 22:08 [facility] Emergency OTIS Bautista MD (ER) 3 23:25 3 00:38 [facility]
--- OUTSIDE RECORDS SUMMARY | 2017-10-04 19:56 | External Medical Summary Rpt ---
Author Author DEMETRIOVAUGHN Bernal, SHAHRAM Production Organization [employer]HRAM [employer] Address Unknown Phone Unavailable Results Streptococcus pyogenes Ag [Presence] in Unspecified specimen Observa Value Referen Units Interpr Notes Date tion ce etation Range Strepto NOT NOTDETE No No LOT # Sep 11 coccus DETECTE CTED informa informa @[id number] pyogene D tion in tion in 2 EXP 8:30 PM s Ag source source DATE [Presen data data @ ce] in 07-25 Unspeci fied specime n Urine test by rapid immunoassa Observa Value Referen Units Interpr Notes Date tion ce etation Range Urine NEGATIV NEG No No YES Sep 11 pregnan E informa informa 2016 cy test tion in tion in 8:13 PM by source source rapid data data immunoa ssa Streptococcus pyogenes Ag [Presence] in Unspecified specimen Observa Value Referen Units Interpr Notes Date tion ce etation Range Strepto NOT NOTDETE No No LOT # Sep 16 coccus DETECTE CTED informa informa N/A 2016 pyogene D tion in tion in DATE 5:38 PM s Ag source source N/A [Presen data data ce] in Unspeci fied specime n CBC W Auto Differential panel in Blood Observa Value Referen Units Interpr Notes Date tion ce etation Range Basophils 0 - 0.2 K/MM3 Normal No Sep 9 informati 2017 9:30 [...] K/mm3 Normal No Sep 9 andrei informati 2017 9:30 [#/volume on in PM ] in source Blood by data Automated count Granulocy 37.0 - % Normal No Sep 9 andrei/100 80.0 informati 2017 9:30 leukocyte on in PM s in source Blood by data Automated count Hematocri 37.0 - % Normal No Sep 9 t [Volume 47.0 informati 2016 9:30 on in PM Fraction] source of Blood data Hemoglobi 12.2 - g/dL Normal No Sep 9 n 16.2 informati 2017 9:30 [Mass/vol on in PM ume] in [...] No Sep 9 te mean 35.4 informati 2016 9:30 corpuscul on in PM ar source hemoglobi data n concentra tion [Mass/vol ume] by Automated count Erythrocy 82.2 - fl Normal No Sep 9 te mean 97.8 informati 2017 9:30 corpuscul on in PM ar volume source [Entitic data volume] by Automated count Monocytes 0.1 - 1.0 K/mm3 Normal No Sep 9 informati 2017 9:30 [#/volume on in PM ] in source Blood by data Automated count Monocytes 1.7 - 9.3 % Normal No Sep 9 /100 informati 2017 9:30 leukocyte on in PM s in source Blood by data Automated count Platelet 7.4 - fl Normal No Sep 9 mean 10.4 informati 2016 9:30 volume on in PM [Entitic source volume] data in Blood by Automated count Platelets 142 - 424 K/mm3 Normal No Sep 9 informati 2016 9:30 [#/volume on in PM ] in source Blood data Erythrocy 4.2 - 5.4 M/mm3 Normal No Sep 9 andrei informati 2017 9:30 [#/volume on in PM [...] No Sep 9 adotropin informati informati informati 2017 9:25 .beta on in on in on [...] 7.8 K/mm3 Normal No Sep 5 andrei inform2016 [#/volume on in 12:46 PM ] in source Blood by data Automated count Granulocy 37.0 - % Normal No Sep 5 andrei/100 80.0 informati 2016 leukocyte on in 12:46 PM s in source Blood by data Automated count Hematocri 37.0 - % Normal No Sep 5 t [Volume 47.0 informati 2017 on in 12:46 PM Fraction] source of [...] 50.0 % Normal No Sep 5 es 2016 [#/volume on in 12:46 PM ] in source Unspecifi data ed specimen by Automated count Erythrocy 27 - 31.2 pg Normal No Sep 5 te mean 2016 corpuscul on in 12:46 PM ar source hemoglobi data n [Entitic mass] Erythrocy 31.8 - g/dl Normal No Sep 5 te mean 35.4 inform2016 corpuscul on in 12:46 PM ar source hemoglobi data n concentra tion [Mass/vol ume] by Automated count Erythrocy 82.2 - fl Normal No Sep 5 te mean 97.8 inform2016 corpuscul on in 12:46 PM ar volume source [Entitic data volume] by Automated count Monocytes 0.1 - 1.0 K/mm3 Normal No Sep 5 2016 [#/volume on in 12:46 PM ] in source Blood by data Automated count Monocytes 1.7 - 9.3 % Normal No Sep 5 /100 2017 leukocyte on in 12:46 PM s in source Blood by data Automated count Platelet 7.4 - fl Low No Sep 5 mean 10.4 2016 volume on in 12:46 PM [Entitic source volume] data in Blood by Automated count Platelets 142 - 424 K/mm3 Normal No Sep 5 2016 [#/volume on in 12:46 PM ] in source Blood data Erythrocy 4.2 - 5.4 M/mm3 Normal No Sep 5 andrei 2016 [#/volume on in 12:46 PM ] in source Amniotic data fluid Erythrocy 11.5 - % Normal No Sep 5 te 17.5 2016 distribut on in 12:46 PM ion width source [Entitic data volume] by Automated count Leukocyte 4.5 - K/MM3 Normal No Sep 5 s 13.0 2016 [#/volume on in 12:46 PM ] in source Blood data CBC W Auto Differential panel in Blood Observa Value Referen Units Interpr Notes Date tion ce etation Range Granulocy 1.8 - 7.8 K/mm3 Normal No Cash 23 andrei 2016 [#/volume on in 10:45 AM [...] 0.1 - 1.0 K/mm3 Normal No Jun 13 inform2016 [#/volume on in 10:45 AM ] in source Blood by data Automated count Monocytes 1.7 - 9.3 % Normal No Jun 13 /100 informati 2016 leukocyte on in 10:45 AM [...] - 9.3 % Normal No Jun 13 / inform2016 leukocyte on in 10:45 AM s in [...] 7.8 K/mm3 Normal No Jun 13 andrei informati 2016 [...] 0.1 - 1.0 K/mm3 Normal No Jun 13 informati 2016 [#/volume on in 10:45 AM ] in source Blood by data Automated count Monocytes 1.7 - 9.3 % Normal No Jun 13 / informati 2016 leukocyte on in 10:45 AM [...] MAY HAVE ADVERSE PSYCHO- SOCIAL IMPACT, THE CDCRECO MMENDS RETESTI NG.\.br \This report contain s [...]
--- OUTSIDE RECORDS SUMMARY | 2017-10-04 19:56 | External Medical Summary Rpt ---
Author Author DEMETRIOVAUGHN Bernal, SHAHRAM [employer] Organization [employer] Address Unknown Phone Unavailable Results Streptococcus pyogenes Ag [Presence] in Unspecified specimen Observa Value Referen Units Interpr Notes Date tion ce etation Range Strepto NOT NOTDETE No No LOT # Sep 11 coccus DETECTE CTED informa informa @[id number] pyogene D tion in tion in 2 [...]
[2017-10-04 20:14] LABS: HEMOGLOBIN 13.1 g/dL (12.2-16.2); LYMPH # 2.7 K/mm3 (0.7-4.5); LYMPH % 11.9 % (10-50.0)
[2017-10-04 20:22] LABS: BUN 8 mg/dL (7-18)
[2017-10-04 20:25] LABS: GFR (ESTIMATED) 108 ML/MIN (59-)
--- NOTE | 2017-10-04 20:43 | Emergency Room Report ---
See Addendum History of Present Illness Time Seen by 1999 Presenting Problem in Triage Pt arrived:Walked Presenting Problem:PT STATES ABOUT 1300 TODAY SHE STARTED FEELING LIKE HER HEART WAS SKIPPING A BEAT. HAS BEEN ON AND OFF SINCE THEN. CALLED DR. VELÁSQUEZ'S OFFICE AND TOLD PT TO BE SEEN. 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 N Clinical Suspician of Infection? N Mental Status: 1 - Regular (Normal Baseline) Sepsis Risk:Possible Sepsis Risk Have you (or family members/close friends) recently traveled outside the [place]? N If Yes, where/when: Have you had exposure to infectious disease within the past month? N TB? Other? Specify: Source patient, RN notes reviewed, family, old records Exam Limitations no limitations Cardiac Chest Pain Chest pain indicative of cardiac No Timing/Duration this evening Severity moderate ALLERGIES Coded Allergies: No Known Allergies (11/24/16) Home Medications Active Scripts Methylprednisolone (Medrol Dose Smooth) 4 MG PO UD #1 SMOOTH Prov: 10/02/17 Reported Medications MULTIVIT-MIN W/FE-FA ( Multivitamin Tablet) 1 TAB PO DAILY History Medical History General CAD? No Angina: No [place]: No Hypertension? No Hyperlipidemia? No CHF? No DVT? No PE? No COPD? No Asthma? No Anemia? No GERD? No Gastric ulcers? No GI Bleed? No Hernia? No Thyroid Problems? No Hypothyroidism? No CVA? No Seizures? Yes Diabetes? No Insulin Dependent: No Insulin Pump: No Home FSBS? No Renal Insuffiency? No End Stage Renal Disease? No UTI? No Stones? No BPH? No GB Disease: No Nephritic Syndrome? No Asplenia? No Hepatitis? No Sickle Cell Disease? No Arthritis? No Migraines? No Cataracts? No Glaucoma? No MRSA? No HIV? No TB? No Anxiety? Yes Depression? No Cancer? No More? 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 Respiratory denies cough, denies shortness of breath, denies wheezing Cardiovascular see HPI, denies chest pain, palpitations, denies syncope Gastrointestinal denies abdominal pain, denies diarrhea, denies vomiting Genitourinary denies: dysuria, frequency, hesitancy, hematuria. Musculoskeletal denies back pain, denies joint pain, denies joint swelling, denies neck pain Skin denies rash Psychiatric/Neurological denies headache, denies seizure Physical Exam Vital Signs Vital Signs Date Time Temp Pulse Resp B/P Pulse O2 O2 Flow FiO2 Ox Delivery Rate 10/04 2101 95 20 95/65 97 10/04 192 98.1 120 20 108/85 97 - WBC >12,000 or <4,000 or 10% bands? 2 or more SIRS Criteria Met? B/P: MAP:92 Creatinine >2.0? UA output<0.5ml/kg/hr for 2 hrs? Platelet count >100,000? Lactate >2.0mmol/1? INR >1.2 or PTT > than 60 sec? Evidence of Organ Dysfunction? Provider documented clinical suspician of infection? N Sepsis Criteria Count: 2 Sepsis Risk: Possible Sepsis Risk General Appearance no apparent distress Eye Exam - bilateral eye PERRL, bilateral eye EOMI Ear, Nose, Throat normal ENT inspection Neck supple Respiratory Status No: respiratory distress. Lung Sounds bilateral: lungs clear. 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 No Results/Orders Laboratory Tests 10/04/171944: Opiates Screen Pending, Urine Methadone Screen Pending, Barbiturates Pending, Phencyclidine Screen Pending, Amphetamines Screen Pending, Benzodiazepines Screen Pending, Cocaine Screen Pending, Marijuana (THC) Screen Pending 10/04/171929: TSH Pending, Thyroxine (T4) Pending 10/04/171929: Sodium 140, Potassium 3.8, Chloride 102, Carbon Dioxide 26, BUN 8, Creatinine 0.7, Estimated Creat Clear 139, Estimated GFR (MDRD) 108, Glucose 162 H, Calcium 8.6, Total Bilirubin 0.2, AST 17, ALT 26, Alkaline Phosphatase 122 H, Creatine Kinase 72, CK-MB (CK-2) Rel Index 0.7, CK and CKMB Interp < 0.5, Troponin I < 0.02, Total Protein 7.2, Albumin 3.4, Globulin 3.8 H, Albumin/ Globulin Ratio 0.9 L, WBC 22.6 *H, RBC 4.62, Hgb 13.1, Hct 39.9, MCV 86.4, RDW 13.6, Plt Count 349, MPV 7.8, Gran % 82.6 H, Gran # 18.6 H, Total Counted Pending, Lymphocytes % 11.9, Monocytes % 4.6, Eosinophils % 0.7, Basophils % 0.1 , Neutrophils Pending, Lymphocytes (Manual) Pending, Lymphocytes # 2.7, Monocytes # 1.0, Eosinophils # 0.2, Basophils # 0.0, Platelet Estimate Pending, PUBS MCHC 32.9, MCH 28.4 Current Medication Orders Sig/Juan Start time Last Medication Dose Route Stop Time Status Admin Sodium Chloride 1,000 ML .Q1H1M 10/04 2115 AC IV 10/04 2215 Sodium Chloride 10 ML PRN PRN 10/04 2115 AC IV 10/05 2111 Ketorolac 0 .STK-MED ONE 10/04 2005 DC Tromethamine .ROUTE Ondansetron HCl 0 .STK-MED ONE 10/04 2005 DC .ROUTE Sodium Chloride 1,000 ML .STK-MED ONE 10/04 1957 DC IV Orders Procedure Date/time Status DRUG ABUSE SCREEN (TRIAGE) 10/04 2045 Active THYROID STIMULATING HORMONE 10/04 2044 Active THYROXINE (T4) 10/04 2044 Active ELECTROCARDIOGRAM REQUEST 10/04 1942 Active URINE 10/04 1942 Complete CBC WITH AUTO DIFF 10/04 1942 Active CARDIAC ENZYMES 10/04 1942 Complete CHEM 12 PROFILE 10/04 1942 Complete DIFFERENTIAL-WBC 10/04 1930 Active 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 ST/Twave chgs Departure Departure Condition STABLE ED Critical Care Critical Care No at 2118
--- NOTE | 2017-10-04 20:43 | Emergency Room Report ---
See Addendum History of Present Illness Time Seen by 1999 Presenting Problem in Triage Pt arrived:Walked Presenting Problem:PT STATES ABOUT 1300 TODAY SHE STARTED FEELING LIKE HER HEART WAS SKIPPING A BEAT. HAS BEEN ON AND OFF SINCE THEN. CALLED DR. VELÁSQUEZ'S OFFICE AND TOLD PT TO BE SEEN. 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 N Clinical Suspician of Infection? N Mental Status: 1 - Regular (Normal Baseline) Sepsis Risk:Possible Sepsis Risk Have you (or family members/close friends) recently traveled outside the [place]? N If Yes, where/when: Have you had exposure to infectious disease within the past month? N TB? Other? Specify: Source patient, RN notes reviewed, family, old records Exam Limitations no limitations Cardiac Chest Pain Chest pain indicative of cardiac No Timing/Duration this evening Severity moderate ALLERGIES Coded Allergies: No Known Allergies (11/24/16) Home Medications Active Scripts Methylprednisolone (Medrol Dose Smooth) 4 MG PO UD #1 SMOOTH Prov: 10/02/17 Reported Medications MULTIVIT-MIN W/FE-FA ( Multivitamin Tablet) 1 TAB PO DAILY History Medical History General CAD? No Angina: No [place]: No Hypertension? No Hyperlipidemia? No CHF? No DVT? No PE? No COPD? No Asthma? No Anemia? No GERD? No Gastric ulcers? No GI Bleed? No Hernia? No Thyroid Problems? No Hypothyroidism? No CVA? No Seizures? Yes Diabetes? No Insulin Dependent: No Insulin Pump: No Home FSBS? No Renal Insuffiency? No End Stage Renal Disease? No UTI? No Stones? No BPH? No GB Disease: No Nephritic Syndrome? No Asplenia? No Hepatitis? No Sickle Cell Disease? No Arthritis? No Migraines? No Cataracts? No Glaucoma? No MRSA? No HIV? No TB? No Anxiety? Yes Depression? No Cancer? No More? 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 Respiratory denies cough, denies shortness of breath, denies wheezing Cardiovascular see HPI, denies chest pain, palpitations, denies syncope Gastrointestinal denies abdominal pain, denies diarrhea, denies vomiting Genitourinary denies: dysuria, frequency, hesitancy, hematuria. Musculoskeletal denies back pain, denies joint pain, denies joint swelling, denies neck pain Skin denies rash Psychiatric/Neurological denies headache, denies seizure Physical Exam Vital Signs Vital Signs Date Time Temp Pulse Resp B/P Pulse O2 O2 Flow FiO2 Ox Delivery Rate 10/04 2101 95 20 95/65 97 10/04 192 98.1 120 20 108/85 97 - WBC >12,000 or <4,000 or 10% bands? 2 or more SIRS Criteria Met? B/P: MAP:92 Creatinine >2.0? UA output<0.5ml/kg/hr for 2 hrs? Platelet count >100,000? Lactate >2.0mmol/1? INR >1.2 or PTT > than 60 sec? Evidence of Organ Dysfunction? Provider documented clinical suspician of infection? N Sepsis Criteria Count: 2 Sepsis Risk: Possible Sepsis Risk General Appearance no apparent distress Eye Exam - bilateral eye PERRL, bilateral eye EOMI Ear, Nose, Throat normal ENT inspection Neck supple Respiratory Status No: respiratory distress. Lung Sounds bilateral: lungs clear. 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 No Results/Orders Laboratory Tests 10/04/171944: Opiates Screen Pending, Urine Methadone Screen Pending, Barbiturates Pending, Phencyclidine Screen Pending, Amphetamines Screen Pending, Benzodiazepines Screen Pending, Cocaine Screen Pending, Marijuana (THC) Screen Pending 10/04/171929: TSH Pending, Thyroxine (T4) Pending 10/04/171929: Sodium 140, Potassium 3.8, Chloride 102, Carbon Dioxide 26, BUN 8, Creatinine 0.7, Estimated Creat Clear 139, Estimated GFR (MDRD) 108, Glucose 162 H, Calcium 8.6, Total Bilirubin 0.2, AST 17, ALT 26, Alkaline Phosphatase 122 H, Creatine Kinase 72, CK-MB (CK-2) Rel Index 0.7, CK and CKMB Interp < 0.5, Troponin I < 0.02, Total Protein 7.2, Albumin 3.4, Globulin 3.8 H, Albumin/ Globulin Ratio 0.9 L, WBC 22.6 *H, RBC 4.62, Hgb 13.1, Hct 39.9, MCV 86.4, RDW 13.6, Plt Count 349, MPV 7.8, Gran % 82.6 H, Gran # 18.6 H, Total Counted Pending, Lymphocytes % 11.9, Monocytes % 4.6, Eosinophils % 0.7, Basophils % 0.1 , Neutrophils Pending, Lymphocytes (Manual) Pending, Lymphocytes # 2.7, Monocytes # 1.0, Eosinophils # 0.2, Basophils # 0.0, Platelet Estimate Pending, PUBS MCHC 32.9, MCH 28.4 Current Medication Orders Sig/Juan Start time Last Medication Dose Route Stop Time Status Admin Sodium Chloride 1,000 ML .Q1H1M 10/04 2115 AC IV 10/04 2215 Sodium Chloride 10 ML PRN PRN 10/04 2115 AC IV 10/05 2111 Ketorolac 0 .STK-MED ONE 10/04 2005 DC Tromethamine .ROUTE Ondansetron HCl 0 .STK-MED ONE 10/04 2005 DC .ROUTE Sodium Chloride 1,000 ML .STK-MED ONE 10/04 1957 DC IV Orders Procedure Date/time Status DRUG ABUSE SCREEN (TRIAGE) 10/04 2045 Active THYROID STIMULATING HORMONE 10/04 2044 Active THYROXINE (T4) 10/04 2044 Active ELECTROCARDIOGRAM REQUEST 10/04 1942 Active URINE 10/04 1942 Complete CBC WITH AUTO DIFF 10/04 1942 Active CARDIAC ENZYMES 10/04 1942 Complete CHEM 12 PROFILE 10/04 1942 Complete DIFFERENTIAL-WBC 10/04 1930 Active 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 ST/Twave chgs Departure Departure Condition STABLE ED Critical Care Critical Care No at 2118
[2017-10-04 21:12] LABS: AMPHETAMINES/METAMPHETAMINES NEGATIVE ng/mL (<1000)
[2017-10-04 21:25] VITALS: BP 95/65
[2017-10-04 21:25] LABS: NEUTROPHILS 77 % (42-76)
== END 2017-10-04 21:25 | disposition home or self-care (01) ==
LOC: ER 19:25
PROVIDERS: Emergency Medicine
DX: R00.2 Palpitations (principal); D72.829 Elevated white blood cell count, unspecified; F17.210 Nicotine dependence, cigarettes, uncomplicated; Z79.899 Other long term (current) drug therapy

== ENCOUNTER → 2017-10-11 | Outpatient (CLI) | payer MEDICAID ==
[2017-10-11 07:32] LABS: HEMOGLOBIN 13.8 g/dL (12.2-16.2); LYMPH # 3.8 K/mm3 (0.7-4.5); LYMPH % 31.3 % (10-50.0)
[2017-10-11 08:42] LABS: BUN 8 mg/dL (7-18)
[2017-10-11 08:46] LABS: GFR (ESTIMATED) 129 ML/MIN (59-)
== END ==
LOC: LAB 06:50
PROVIDERS: Internal Medicine Adolescent Medicine
DX: R00.2 Palpitations (principal); N91.2 Amenorrhea, unspecified; R73.9 Hyperglycemia, unspecified